=== PATIENT | female | born 2000 | race Caucasian/White ===

== ENCOUNTER 2025-02-21 03:48 | Emergency (ER) | payer BC, SELFPAY ==
[2025-02-21 03:49] VITALS: BP 147/81; PULSE 114; RESP 16; TEMP 37.4; O2SAT 99; BMI 36.6
--- NOTE | 2025-02-21 04:15 | CT_ITS ---
PROCEDURE: BRAIN/HEAD WITHOUT CONTRAST 02/21/2025 REASON FOR EXAM: SHAKING EPISODE, POSS SEIZURE; NUMBNESS RIGHT SIDE TECHNIQUE: Procedure Code: CTBR Modality: CT Procedure: BRAIN/HEAD WITHOUT CONTRAST Coronal and Sagittal reconstruction series were provided. One or more dose reduction techniques were used (e.g., Automated exposure control, adjustment of the mA and/or kV according to patient size, use of iterative reconstruction technique. RADIATION DOSE SUMMARY: CTDI Vol 44.99 mGy DLP :846.73 mGycm COMPARISON: none FINDINGS: The visualized brain parenchyma shows normal appearance. No focal parenchymal abnormalities are demonstrated. Dominique-white matter differentiation is maintained. Normal CT appearance of the posterior fossa structures. No intracerebral or extra-axial hemorrhage. No midline shifts or deformity. Normal size and configuration of the cerebral ventricles. No definite calvarial fractures. The osseous structures in the skull base are unremarkable. Paranasal sinuses are unremarkable. CT/Brain/Head without Contrast IMPRESSION: No intracerebral or extra-axial hemorrhage. No acute cerebrovascular insult. If clinical symptoms persist, further evaluati on with MRI may be considered as clinically warranted. Unremarkable non-enhanced CT study for the brain. Reading Location: [facility]
--- NOTE | 2025-02-21 04:16 | EKG12_ITS ---
Test Reason : DYSRHYTHMIA Blood Pressure : */* mmHG Vent. Rate : 98 BPM Atrial Rate : 98 BPM P-R Int : 166 ms QRS Dur : 90 ms QT Int : 344 ms P-R-T Axes : 74 -5 22 degrees QTcB Int : 439 ms Normal sinus rhythm Minimal voltage criteria for LVH, may be normal variant ( R in aVL ) Borderline ECG Confirmed by AARON HADLEY, DIA ([id number]), design editor SERGE DAVIS ([id number]) on 02/23/2025 6:32:42 AM Referred By: Confirmed By: DIA WALKER MD
--- NOTE | 2025-02-21 04:16 | EDS_ITS ---
HPI History of Present Illness Chief Complaint: Numb/Ting Informant: patient Narrative Narrative: Patient is a 24-year-old female presenting with numbness in both arms and the right leg, along with a recent episode of shaking. - Numbness began last (8 days ago) in the right hand, described as a constant pins and needles sensation. - Spread to the left arm on Sunday and to the right leg last night. - Denies any resolution of numbness; able to use hands without dropping objects and ambulate without difficulty. - Reports an episode of shaking around 0300 (1 hr prior to arrival in ED), described as uncontrollable and lasting approximately 15 minutes; likened to chills but denies feeling sick. Was awake during this. No associated headache or vision problems. No changes in her numbness during this. - Denies chest pain, dyspnea, nausea, emesis, headaches, abdominal issues, visual changes, or eye strain. - No current prescription medications. PFSH PFSH Medical History no medical history Home Medications ?Medication ?Instructions ?Recorded ?Last Taken ?Type NK 02/21/25 Unknown History Allergy/AdvReac Type Severity Reaction Status Date / Time No Known Allergies Allergy Verified 02/21/25 03:51 Social History Smoking Status: Current some day smoker tobacco type: e-cigarettes ROS ROS ED Constitutional Constitutional ED: Denies chills or fever(s) Eyes Eyes: Denies blurry vision, change in vision or diplopia ENT ENT ED: Denies rhinorrhea or sore throat Cardiovascular Cardiovascular: Denies chest pain or palpitations Respiratory/Chest Respiratory/Chest: Denies cough or dyspnea Gastrointestinal Gastrointestinal: Denies abdominal pain, diarrhea, nausea or vomiting Genitourinary Genitourinary ED: Denies dysuria or hematuria Musculoskeletal Musculoskeletal: Denies back pain or neck pain Integumentary Denies abscess or rash Neurologic Neurologic: Reports paresthesias RUE, RLE and LUE and seizure-like activity; Denies headache(s) or weakness Psychiatric Psychiatric: Denies anxiety or suicidal thoughts EXAM Physical Exam Const Vital Signs: 02/21/25 03:49 02/21/25 05:49 02/21/25 06:52 Temperature 99.3 F H 98.1 F Temperature Source Oral Oral Pulse Rate 114 H 102 H 94 Respiratory Rate 16 16 16 Blood Pressure 147/81 H 116/98 H 130/72 H Blood Pressure Mean 103 104 91 Pulse Ox 99 100 94 Oxygen Delivery Method Room Air Room Air Room Air 02/21/25 07:09 Temperature 97.3 F L Temperature Source Pulse Rate 103 H Respiratory Rate 18 Blood Pressure 109/68 Blood Pressure Mean 81 Pulse Ox 99 Oxygen Delivery Method Positive well nourished and well developed General Appearance ED: well developed and NAD HEENT Reports moist mucous membranes normocephalic and atraumatic Eyes PERRL and EOMs intact bilaterally Eyes Narrative: No pathologic nystagmus Neck full ROM and supple Resp normal respiratory effort and clear to auscultation bilaterally Cardio regular rate, regular rhythm and no murmurs GI non-tender and non-distended Auscultation: normoactive bowel sounds Palpation: soft Back/Spine no CVA tenderness General Back: other FROM Extremity normal to inspection General Extremety ED: Negative for edema, pulses abnormal or tenderness General Extremity: Negative for edema or pulses abnormal Neuro oriented x3, CN's II-XII intact bilaterally and no sensory deficits noted Neuro Narrative: No gross sensory deficits, subjective decrease sensation both hands and right lower leg. Normal symmetric reflexes downgoing toes no clonus Normal [id number]-[id number] and [id number] bilaterally Sensorium / Orientation: awake and alert Motor Exam: strength 5/5 throughout Psych mental status grossly normal Skin no rashes or lesions noted and no wounds MDM MDM MDM Narrative Medical decision making narrative: Assessment: The patient is a 24-year-old female with PMH of arthritis in her neck and heartburn presenting for progressive tingling/paresthesias of both upper extremities and right lower extremity that began one week ago, accompanied by a single nocturnal episode of whole-body shaking lasting ~15 minutes. Differential discussed includes metabolic derangements (e.g., abnormal blood sugar or calcium), seizure, panic attack, early multiple sclerosis, and other intracranial pathology. Non-contrast head CT is normal, serum electrolytes are normal, lactic acid is normal (making recent generalized seizure less likely), and urinalysis shows no infection. Multiple sclerosis in the differential but she does not have more than 1 different episode in time right now. Plan: - Discussed results and diagnosis with patient; provided reassurance and return precautions. - Discharged home in stable condition with instructions to follow up with primary care for persistent or recurrent paresthesias. - Arranged to send copy of ED visit record to [facility] for continuity. Diagnostics: - Non-contrast head CT: normal brain parenchyma, no acute intracranial process. - Serum electrolytes: within normal limits. - Serum lactic acid: normal, arguing against tonic-clonic seizure - Urinalysis: no evidence of infection. Reevaluations: - In follow-up after results reviewed, patient remains neurologically intact and comfortable; agrees with discharge plan. Lab Data Attestation: I reviewed the patient's lab results. Labs: Laboratory Results - last 24 hr 02/21/25 02/21/25 02/21/25 04:24 04:27 04:31 WBC 9.8 RBC 4.20 Hgb 12.4 Hct 37.2 MCV 88.6 MCH 29.5 MCHC 33.3 RDW Std Deviation 39.8 RDW Coeff of Klaudia 12.3 Plt Count 305 MPV 9.6 Immature Gran % (Auto) 0.300 Neut % (Auto) 51.6 Lymph % (Auto) 39.2 Morton % (Auto) 7.4 Eos % (Auto) 1.0 Baso % (Auto) 0.5 Absolute Neuts (auto) 5.1 Absolute Lymphs (auto) 3.85 Nucleated RBC % 0 Sodium 140 Potassium 3.7 Chloride 104 Carbon Dioxide 23.5 Anion Gap 13 BUN 12 Creatinine 0.70 Estim Creat Clear Calc 145.08 Est GFR (MDRD) Non-Af 124 BUN/Creatinine Ratio 17.1 Glucose 122 H Lactic Acid 1.3 Calcium 9.3 Magnesium 2.2 Urine Color Yellow Urine Clarity Clear Urine pH 6.0 Ur Specific [place] 1.020 Urine Protein 15 H Urine Glucose (UA) Normal Urine Ketones Negative Urine Occult Blood Negative Urine Nitrite Negative Urine Bilirubin Negative Urine Urobilinogen Normal Ur Leukocyte Esterase Negative Urine RBC 0 SEEN Urine WBC 0 SEEN Ur Squamous Epith Cells 0-5 SEEN Urine Bacteria 0 SEEN Urine Mucus 0 SEEN Radiography Diagnostic Testing: Clinical Impression(s) from Imaging Studies Brain CT 02/21/25 04:15 IMPRESSION: No intracerebral or extra-axial hemorrhage. No acute cerebrovascular insult. If clinical symptoms persist, further evaluation with MRI may be considered as clinically warranted. Unremarkable non-enhanced CT study for the brain. Reading [facility] Chest X-Ray 02/21/25 04:50 IMPRESSION: No evidence for acute abnormality. Reading [facility] Rhythm Strip Rhythm Strip: Sinus Tach Rate: 115 Ectopy: None EKG Initial EKG: Attestation: I personally reviewed and interpreted this EKG as follows: Interpretation: Sinus Rhythm (98) and No Acute Injury Pattern Comments: Nml axis & intervals; nml EKG Discharge Plan Triage Chief Complaint: Numb/Ting ED Provider: Matheus Santamaria Dx/Rx/DC Orders Clinical Impression: Paresthesias, Episode of shaking Instructions: ED Paresthesia Prescriptions: No Action NK Primary Care Provider: Care Physician,No Primary Referrals: [facility] [Outside] - 3-5 Days if not improving Print Language: Tamazight Disposition Disposition: Home, Self Care Discharge Date/Time: 02/21/25 07:10
--- NOTE | 2025-02-21 04:50 | RAD_ITS ---
PROCEDURE: CHEST PA AND LATERAL 02/21/2025 REASON FOR EXAM: POSS FEVER TECHNIQUE: Procedure Code: RADCXR Modality: DX Procedure: CHEST PA AND LATERAL COMPARISON: None. FINDINGS: The lungs are expanded. There is no demonstrated parenchymal abnormality. There is no demonstrated pleural abnormality. Normal heart and pericardium. Normal mediastinum and rené. Normal visualized pulmonary arteries. Normal visualized aortic arch and descending thoracic aorta. Normal visualized thoracic spine. Normal visualized ribs, clavicles, and shoulders. There is no demonstrated abnormality of the visualized soft tissue structures of the upper abdomen. RAD/Chest PA and Lateral IMPRESSION: No evidence for acute abnormality. Reading [facility]
[2025-02-21 04:53] LABS: Mucous, Urine 0 SEEN /hpf (<or=2+); Red Blood Cells-Urine 0 SEEN /hpf (0-5)
[2025-02-21 04:55] LABS: Hematocrit 37.2 % (37-47); Hemoglobin 12.4 g/dL (12.0-15.0); Immature Granulocytes Count 0.030 X10^3/uL (0.0-0.0); Mean Corp Hgb Conc 33.3 g/dL (32-36); Mean Corpuscular Volume 88.6 fL (81-99); Mean Platelet Vol. 9.6 fl (6.2-12.0); NRBC Flagged by Analyzer 0 % (0-5); Platelet Count 305 K/mm3 (150-450); RBC Distribution Width CV 12.3 % (11.6-14.6); RBC Distribution Width SD 39.8 fl (35.1-43.9); Red Blood Count 4.20 M/mm3 (4.2-5.4); White Blood Count 9.8 K/mm3 (4.4-11.0)
[2025-02-21 05:16] LABS: Anion Gap 13 (5-15); BUN 12 mg/dL (4-19); BUN/Creat Ratio 17.1 RATIO (10-20); Calcium,Total 9.3 mg/dL (7.6-11.0); Carbon Dioxide 23.5 mmol/L (21.0-32.0); Chloride 104 mmol/L (98-108); Estimated Creatinine Clearance 145.08 ml/min (50-250); Glucose 122 mg/dL (70-99); Magnesium 2.2 mg/dL (1.5-2.2); Potassium 3.7 mmol/L (3.3-5.1)
[2025-02-21 05:31] LABS: Color, Urine Yellow (Yellow); Glucose, Dipstick Normal (Normal); Ketone-Dipstick Negative (Negative); Leukocyte Esterase-Dipstick Negative /ul (Negative); Nitrite-Dipstick Negative (Negative); Occult Blood-Urine Negative /ul (Negative); Protein-Dipstick 15 mg/dl (Negative); Specific Gravity, Urine 1.020 (1.002-1.030); Urine Bilirubin Dipstick Negative (Negative)
[2025-02-21 05:49] VITALS: BP 116/98; PULSE 102; RESP 16; TEMP 36.7; O2SAT 100
[2025-02-21 06:23] LABS: Squamous Epithelial Cells - UA 0-5 SEEN /hpf (5-10)
[2025-02-21 06:52] VITALS: BP 130/72; PULSE 94; RESP 16; O2SAT 94
[2025-02-21 07:09] VITALS: BP 109/68; PULSE 103; RESP 18; TEMP 36.3; O2SAT 99
== END 2025-02-21 07:10 | disposition home or self-care (01) ==
PROVIDERS: Emergency Provider Emergency Medicine; Visit Provider Emergency Medicine
DX: R20.2 Paresthesia of skin (principal); R20.0 Anesthesia of skin; R25.8 Other abnormal involuntary movements; F17.290 Nicotine dependence, other tobacco product, uncomplicated
CPT/HCPCS: 70450; 71046; 80048; 81001; 83605; 83735; 85025; 93005; 99283; A4216

== ENCOUNTER 2025-02-27 12:55 | Emergency (ER) | payer BC, SELFPAY ==
[2025-02-27 12:56] VITALS: BP 141/89; PULSE 111; RESP 16; TEMP 37.1; O2SAT 98; BMI 36.2
[2025-02-27 14:05] VITALS: BMI 36.2
[2025-02-27 14:55] VITALS: BP 102/64; PULSE 90; RESP 18; O2SAT 98
[2025-02-27 16:09] VITALS: BP 107/66; PULSE 88; RESP 20; TEMP 36.9; O2SAT 97
--- NOTE | 2025-02-27 17:35 | EX.ED.DYSGE1 ---
HPI History of Present Illness Chief Complaint: Neuro S/Sx Narrative Narrative: Pt is a 24-year-old female who is presenting to the ER today with and mother with similar complaints until last week when she was in the ER as well. Patient had a stroke evaluation last week and was discharged. Patient is having numbness and tingling and intermittent pain going from her neck down to both of her hands diffusely. Patient states in the morning she has a hard time using some of the fingers of her left and right hand, but it takes a while to work the pain and the range of motion onto both hands. Patient is also having some numbness and tingling and pain rating from her the right lower back down into her leg. Patient has no aphasia or dysphagia. Patient states she is having intermittent blurry vision, does wear contacts. Has not seen the eye doctor in a few years. Patient has no new acute signs of stroke at this time. Patient is following up with a chiropractor. Patient has not followed up with PCP. Mother at bedside, looking for neurology follow-up. Patient has no saddle seizure, chronic. No recent falls. No other acute complaints. No chest pain or shortness of breath. No mental health history. REVIEW OF SYSTEMS: Unless otherwise stated in this report the patient's positive and negative responses for review of systems for constitutional, eyes, ENT, cardiovascular, respiratory, gastrointestinal, neurological, , musculoskeletal, and integument systems and related systems to the presenting problem are either stated in the history of present illness or were not pertinent or were negative for the symptoms and/or complaints related to the presenting medical problem. Nurse's notes and vital signs reviewed. The patient is not hypoxic. General: Alert, no acute distress, patient resting comfortably Patient is not toxic or lethargic. Skin: warm, intact, no pallor noted Head: Normocephalic, atraumatic Eye: Normal conjunctiva, no double vision blurry vision loss of vision. Visual acuity within normal limits, slightly decreased in the left side. When testing PERRL and vision failed, patient has no deficits to her vision feels Ears, Nose, Throat: Right tympanic membrane clear, left tympanic membrane clear. No drainage or discharge noted. No pre or post auricular tenderness, erythema, or swelling noted. No rhinorrhea or congestion noted. Posterior oropharynx shows no erythema, tonsillar hypertrophy, exudate. the uvula is midline. no trismus or drooling is noted. Neck: No anterior/posterior lymphadenopathy noted. no erythema, no masses, no fluctuance or induration noted. No meningeal signs. Cardio: Regular Rate and Rhythm Respiratory: No acute distress, no rhonchi, wheezing or rales noted. No stridor or retractions are noted. Abdomen: Obese, no pulsatile mass, no flank pain bilateral., soft, nontender, no masses detected. No rebound, guarding, or rigidity noted. Neurological: Appropriate for age; NIH 0. Patient does have decreased pinprick and dull sensation to the right leg compared to left. Patient has equal sensation to both arms. Patient states she is having paresthesias to both arms. Patient is also having lumbar radiculopathy/sciatica pain down her right leg. No signs of saddle anesthesia or cauda equina. Patient states his symptoms have been the similar symptoms over the past 7 to 10 days. Psychiatric: [facility] Medical History (Updated 02/27/25 @ 16:[address] Collin Cloud DO) Numbness Home Medications ?Medication ?Instructions ?Recorded ?Last Taken ?Type methylprednisolone 4 mg tablets in 4 mg PO UD ##1 02/27/25 Unknown Rx a dose pack Allergy/AdvReac Type Severity Reaction Status Date / Time No Known Allergies Allergy Verified 02/21/25 03:51 Social History Smoking Status: Current some day smoker tobacco type: e-cigarettes EXAM Physical Exam Const Vital Signs: 02/27/25 12:56 02/27/25 14:55 02/27/25 16:09 Temperature 98.7 F 98.4 F Temperature Source Oral Pulse Rate 111 H 90 88 Respiratory Rate 16 18 20 H Blood Pressure 141/89 H 102/64 107/66 Blood Pressure Mean 106 76 79 Pulse Ox 98 98 97 Oxygen Delivery Method Room Air MDM MDM MDM Narrative Medical decision making narrative: Lengthy discussion was had at bedside on her symptoms of cervical radiculopathy and paresthesias and lumbar radiculopathy paresthesias. Patient has no acute strokelike signs or symptoms at this time. Patient will be referred to neurology and also to orthopedic surgery. We have also discussed follow-up with [facility] as another option for orthopedics. Patient is not having any new strokelike signs or symptoms today. No acute indication for CT of the brain again or MRI at this time. After speaking to radiology department, I could perform MRI of the brain at approximately 5 to 5:30 PM. Patient and family are aware of the results we take a few hours after the exam is done, the exam takes approxi-1 hour. Patient does not want to have MRI of the brain at this time, we discussed that MRI of the cervical spine and lumbar spine if indicated in the future by PCP may be of more benefit secondary to her symptoms in her arms and legs. Functional decision capacity patient has, she does not want have MRI of the brain. Mother agrees. They are happy with follow-up and referral to orthopedic surgery and neurology. Patient has no strokelike signs or symptoms that are acute today. No questions discharge patient was placed on a Medrol Dosepak prophylactically Lab Data Labs: Laboratory Results - last 24 hr 02/27/25 14:43 POC Glucose 83 Discharge Plan Triage Chief Complaint: Neuro S/Sx ED Provider: Collin Cloud Dx/Rx/DC Orders Clinical Impression: Bilateral cervical radiculopathy, Paresthesias, Acute right-sided back pain with sciatica Instructions: Back Exercises: Lower Back Rotation, Understanding Lumbar Radiculopathy, Back Exercises: Lower Back Stretch, Cervical Radiculopathy, ED Sciatica, ED Paresthesia Prescriptions: New methylprednisolone 4 mg tablets,dose pack 4 mg PO UD Qty: 1 0RF Primary Care Provider: Care Physician,No Primary Referrals: Tommy Mayen MD [Non-Staff -Ordering Privileges, Neurology] Gomez Irizarry MD [Med Staff - Active Staff, Orthopedics] Care Physician,No Primary [Primary Care Provider, Medical] Activity Restrictions/Additional Instructions: I apologize for delays today in the emergency room, thank you for your patience and understanding. Use ice 20 minutes on, 20 minutes off, do not use heat. Do this for 1 to 2 weeks. Perform cervical stretching and lumbar stretching exercises 3-4 times a day for the next 2 weeks. Follow-up with neurology and orthopedic surgery For further evaluation and treatment. We had discussed following up with the [facility], they have walk-in clinics as well where he could be followed up by orthopedics. Print Language: Belarusian Disposition Disposition: Home, Self Care Discharge Date/Time: 02/27/25 16:18
== END 2025-02-27 16:18 | disposition home or self-care (01) ==
PROVIDERS: Emergency Provider Emergency Medicine; Visit Provider Emergency Medicine
DX: M54.12 Radiculopathy, cervical region (principal); M54.41 Lumbago with sciatica, right side; R20.2 Paresthesia of skin; F17.290 Nicotine dependence, other tobacco product, uncomplicated
CPT/HCPCS: 82962; 99284; A4216

== ENCOUNTER 2025-03-20 08:32 | Emergency (ER) | payer BC, SELFPAY ==
[2025-03-20 08:33] VITALS: BP 152/88; PULSE 125; RESP 16; TEMP 37.3; O2SAT 97; BMI 36.6
--- NOTE | 2025-03-20 09:03 | EX.ED.DYSGE1 ---
HPI History of Present Illness Chief Complaint: Back Narrative Narrative: Patient is a 24-year-old female presenting to the emergency department for abdominal cramping, 2 episodes of diarrhea and nausea with 1 episode of nonbloody nonbilious vomiting this morning. Patient has a past medical history of back pain with intermittent weakness and numbness in her lower extremities. States that she has been here to the emergency department twice and was referred up to [facility] to see a neurologist who ordered MRI imaging of her spine and brain. States that she has a bulging disc in her lower lumbar however it was not compressing anything. 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 She had no lesions in the brain. She reports no new back pain, neurologic symptoms, bowel or bladder retention or incontinence, saddle anesthesia. Denies any fevers or headache. States that she is not here for the back pain or neurologic symptoms that have been present for weeks. She reports that she started to have abdominal cramping this morning and had 2 episodes of nonbloody diarrhea. Denies any recent antibiotic use or travel. States that she did take something to have a bowel movement last night and she does not know if she overdid it. She reports she had 1 episode of vomiting nonbloody, nonbilious. Denies any dysuria or hematuria. She is also endorsing intermittent muscle spasms. States this is new for her. [facility] Medical History Heart murmur Numbness Home Medications ?Medication ?Instructions ?Recorded ?Last Taken ?Type methylprednisolone 4 mg tablets in 4 mg PO UD ##1 02/27/25 Unknown Rx a dose pack ondansetron 4 mg disintegrating 4 mg PO Q8H PRN PRN Nausea #10 tabs 03/20/25 Unknown Rx tablet Allergy/AdvReac Type Severity Reaction Status Date / Time No Known Allergies Allergy Verified 03/20/25 08:33 Social History Smoking Status: Current some day smoker tobacco type: e-cigarettes ROS ROS ED ROS Narrative see HPI EXAM Physical Exam Narrative Exam Narrative: Vital signs: Reviewed General: Alert and oriented x 3. No acute distress HEENT: Head is normocephalic and atraumatic, sinuses nontender, pupils equal round and reactive. Nares are patent. Oropharynx and throat exams normal. Neck: Supple without lymphadenopathy nontender Cardiovascular: Regular rate and rhythm, no murmurs. No rubs or gallops. Normal S1 and S2 Respiratory: Clear to auscultation bilaterally. No wheezes, rales, rhonchi Abdominal: Soft and very mildly tender to palpation in the left lower quadrant. Normal bowel sounds. No guarding or rebound. Nonsurgical abdomen. Extremities: No tenderness. No bruising. Normal range of motion. Normal sensation. Skin: No rash or redness. Neurological: Cranial nerves II through XII are grossly intact. Decreased sensation in bilateral lower extremities which patient states is unchanged from baseline. 4/5 strength in bilateral lower extremities. The rest of the physical exam is unremarkable Const Vital Signs: 03/20/25 08:33 03/20/25 10:33 03/20/25 11:24 Temperature 99.2 F H 97.8 F Temperature Source Oral Pulse Rate 125 H 98 86 Respiratory Rate 16 16 16 Blood Pressure 152/88 H 113/77 107/75 Blood Pressure Mean 109 89 85 Pulse Ox 97 100 97 Oxygen Delivery Method Room Air Room Air MDM MDM MDM Narrative Medical decision making narrative: Patient is a 24-year-old female presenting to the emergency for abdominal cramping, nausea, vomiting and diarrhea. Patient was seen and examined. Vitals are stable. She is mildly tachycardic on arrival 125. She is afebrile. The symptoms started this morning. She has no significant abdominal tenderness on exam. I do not think she needs CT imaging of her abdomen at this time. Will treat symptomatically with fluids and Zofran. Will also give Flexeril to help with the muscle spasms. Will obtain blood work to assess her electrolytes given the muscle spasms that she is having. Again she is not here for back pain or neurologic symptoms that are being worked up outpatient. She has no new symptoms related to this. She states that her neurologic exam is baseline for her. CBC with no leukocytosis and a normal hemoglobin. BMP with no significant abnormalities. Urinalysis with 1+ bacteria however no other signs of infection. Urine is negative. Patient was reevaluated after fluids, Flexeril and Zofran. She states that she is feeling much better. No nausea or vomiting. No abdominal cramping or pain. Abdominal exam is still unremarkable. She was able to tolerate p.o. Heart rate improved after fluids to pulse of 86. Patient was given Zofran prescription for home and instructed to take this every 8 hours for nausea and vomiting. Instructed to follow-up with her primary care doctor and told if she has more than 10 days of diarrhea that she may need stool studies but at this time does not need them done. Likely viral in nature. Patient understands and all questions were answered. Patient discharged from the Emergency Department. I do not feel that the patient's evaluation reveals any acute reason for admission at this time. I instructed them to either follow-up with their primary care physician or promptly return to the Emergency Department for reevaluation should symptoms worsen or new symptoms develop. I explained what symptoms would indicate the need to return to the emergency department. Shared decision making was used. The patient voiced understanding of the treatment plan and is agreeable with it. Clinical impression Nausea and vomiting Diarrhea Abdominal cramping History & Record Review Discussion w/independent historian: Patient and Significant other Additional record(s) reviewed:: Prior ED visit Lab Data Attestation: I reviewed the patient's lab results. Labs: Laboratory Results - last 24 hr 03/20/25 03/20/25 03/20/25 09:28 09:28 10:00 WBC Cancelled 10.7 Corrected WBC Cancelled RBC Cancelled 4.11 L Hgb Cancelled 12.3 Hct Cancelled 36.1 L MCV Cancelled 87.8 MCH Cancelled 29.9 MCHC Cancelled 34.1 RDW Std Deviation Cancelled 39.5 RDW Coeff of Klaudia Cancelled 12.2 Plt Count Cancelled 298 MPV Cancelled 9.4 Immature Gran % (Auto) Cancelled 0.300 Neut % (Auto) Cancelled 76.5 H Lymph % (Auto) Cancelled 19.6 [place] % (Auto) Cancelled 3.2 Eos % (Auto) Cancelled 0.1 Baso % (Auto) Cancelled 0.3 Absolute Neuts (auto) Cancelled 8.2 H Absolute Lymphs (auto) Cancelled 2.10 Total Counted Cancelled Neutrophils % (Manual) Cancelled Band Neutrophils % Cancelled Lymphocytes % (Manual) Cancelled Monocytes % (Manual) Cancelled Eosinophils % (Manual) Cancelled Basophils % (Manual) Cancelled Metamyelocytes % Cancelled Myelocytes % Cancelled Promyelocytes % Cancelled Blast Cells % Cancelled Plasma Cell % (Manual) Cancelled Other Cells % Cancelled Nucleated RBC % Cancelled 0 Nucleated RBCs/100 WBC Cancelled Differential Comment Cancelled Diff Path Review Cancelled Hypersegmented Neuts Cancelled Atypical Lymphocytes Cancelled Reactive Lymphocytes Cancelled Smudge Cells Cancelled Toxic Granulation Cancelled Toxic Vacuolation Cancelled Dohle Bodies Cancelled Cassie Rods Cancelled Platelet Estimate Cancelled Plt Morphology Comment Cancelled RBC Morphology Cancelled Cancelled Polychromasia Cancelled Hypochromasia Cancelled Basophilic Stippling Cancelled Anisocytosis Cancelled Microcytosis Cancelled Macrocytosis Cancelled Spherocytes Cancelled Sickle Cells Cancelled Target Cells Cancelled Tear Drop Cells Cancelled Ovalocytes Cancelled Stomatocytes Cancelled [place] Bodies Cancelled [place] Cells Cancelled Bite Cells Cancelled Crenated Cell Cancelled Acanthocytes (Spur) Cancelled Rouleaux Cancelled Schistocytes Cancelled Sodium Cancelled 140 Potassium Cancelled 3.8 Chloride Cancelled 106 Carbon Dioxide Cancelled 23.8 Anion Gap Cancelled 10 BUN Cancelled 7 Creatinine Cancelled 0.79 Estim Creat Clear Calc Cancelled 128.48 Est GFR (MDRD) Non-Af Cancelled 108 BUN/Creatinine Ratio Cancelled 8.8 L Glucose Cancelled 122 H Calcium Cancelled 8.9 Magnesium Cancelled 2.2 Total Bilirubin Cancelled 0.33 AST Cancelled 23 ALT Cancelled 31 Alkaline Phosphatase Cancelled 52 Total Protein Cancelled 6.9 Albumin Cancelled 4.2 Globulin Cancelled 2.7 Albumin/Globulin Ratio Cancelled 1.6 Urine Color Yellow Urine Clarity Clear Urine pH 7.0 Ur Specific [place] 1.005 Urine Protein Negative Urine Glucose (UA) Normal Urine Ketones Negative Urine Occult Blood Negative Urine Nitrite Negative Urine Bilirubin Negative Urine Urobilinogen Normal Ur Leukocyte Esterase 25 H Urine RBC 0 SEEN Urine WBC 0-5 SEEN Ur Squamous Epith Cells 0-5 SEEN Urine Bacteria 1+ Urine Mucus 0 SEEN Urine Test Negative Discharge Plan Triage Chief Complaint: Back ED Provider: Jasmina Arroyo Dx/Rx/DC Orders Clinical Impression: Nausea vomiting and diarrhea Instructions: ED Diarrhea, Unknown Cause, ED Viral Syndrome (Adult) Prescriptions: New ondansetron 4 mg tablet,disintegrating 4 mg PO Q8H PRN PRN (Reason: Nausea) Qty: 10 0RF No Action methylprednisolone 4 mg tablets,dose pack 4 mg PO UD Qty: 1 0RF Primary Care Provider: Care Physician,No Primary Referrals: Eunice Murillo MD [Med Staff - [facility], Internal Medicine] - As soon as possible Care Physician,No Primary [Primary Care Provider, Medical] Activity Restrictions/Additional Instructions: Take the Zofran every 8 hours as needed for nausea and vomiting. Make sure you are drinking a lot of fluids. If you have diarrhea for more than 10 days you need to follow-up with a primary care doctor for possible stool studies. Your evaluation in the Emergency Department did not reveal any acute reason for admission. However, I want to emphasize that you may be early in the course of a disease process or illness even if it is not present. For this reason you should follow-up within 24 hours for reevaluation with either your primary care physician or if necessary back here in the Emergency Department. You should return to the Emergency Department immediately if your symptoms worsen or new symptoms develop. Print Language: Polish Disposition Disposition: Home, Self Care Discharge Date/Time: 03/20/25 11:28
[2025-03-20] MEDS: 0.9% Normal Saline (1000mL) 1,000 ML 999 ML IV (09:29)
[2025-03-20 10:06] LABS: Mucous, Urine 0 SEEN /hpf (<or=2+); Red Blood Cells-Urine 0 SEEN /hpf (0-5)
[2025-03-20 10:11] LABS: Hematocrit 36.1 % (37-47); Hemoglobin 12.3 g/dL (12.0-15.0); Immature Granulocytes Count 0.030 X10^3/uL (0.0-0.0); Mean Corp Hgb Conc 34.1 g/dL (32-36); Mean Corpuscular Volume 87.8 fL (81-99); Mean Platelet Vol. 9.4 fl (6.2-12.0); NRBC Flagged by Analyzer 0 % (0-5); Platelet Count 298 K/mm3 (150-450); RBC Distribution Width CV 12.2 % (11.6-14.6); RBC Distribution Width SD 39.5 fl (35.1-43.9); Red Blood Count 4.11 M/mm3 (4.2-5.4); White Blood Count 10.7 K/mm3 (4.4-11.0)
[2025-03-20 10:12] LABS: Color, Urine Yellow (Yellow); Glucose, Dipstick Normal (Normal); Ketone-Dipstick Negative (Negative); Leukocyte Esterase-Dipstick 25 /ul (Negative); Nitrite-Dipstick Negative (Negative); Occult Blood-Urine Negative /ul (Negative); Protein-Dipstick Negative (Negative); Specific Gravity, Urine 1.005 (1.002-1.030); Urine Bilirubin Dipstick Negative (Negative)
[2025-03-20 10:19] LABS: Internal QC Validated? YES +Cl - CLEAR BKGD; Pregnancy, Urine Negative Negative; Record Kit Lot#,Urine Preg 980607; Squamous Epithelial Cells - UA 0-5 SEEN /hpf (5-10)
[2025-03-20 10:33] VITALS: BP 113/77; PULSE 98; RESP 16; O2SAT 100
[2025-03-20 10:45] LABS: AST(SGOT) 23 U/L (<=31); Alanine Aminotransfer ALT/SGPT 31 U/L (<=34); Albumin, Serum 4.2 g/dL (3.5-5.0); Alkaline Phosphatase 52 U/L (35-104); Anion Gap 10 (5-15); BUN 7 mg/dL (4-19); BUN/Creat Ratio 8.8 RATIO (10-20); Calcium,Total 8.9 mg/dL (7.6-11.0); Carbon Dioxide 23.8 mmol/L (21.0-32.0); Chloride 106 mmol/L (98-108); Estimated Creatinine Clearance 128.48 ml/min (50-250); Globulin 2.7 g/dL (2.2-4.2); Glucose 122 mg/dL (70-99); Magnesium 2.2 mg/dL (1.5-2.2); Potassium 3.8 mmol/L (3.3-5.1)
[2025-03-20 11:24] VITALS: BP 107/75; PULSE 86; RESP 16; TEMP 36.6; O2SAT 97
== END 2025-03-20 11:28 | disposition home or self-care (01) ==
PROVIDERS: Emergency Provider Student in an Organized Health Care Education/Training Program; Visit Provider Student in an Organized Health Care Education/Training Program
DX: R11.2 Nausea with vomiting, unspecified (principal); R19.7 Diarrhea, unspecified; R10.9 Unspecified abdominal pain; M50.20 Other cervical disc displacement, unspecified cervical region; M51.369 Other intervertebral disc degeneration, lumbar region without mention of lumbar back pain or lower extremity pain
CPT/HCPCS: 80053; 81001; 81025; 83735; 85025; 96361; 96374; 99282; A4216; J2405

== ENCOUNTER 2025-04-15 07:02 | Emergency (ER) | payer BC, SELFPAY ==
[2025-04-15 07:03] VITALS: BP 145/90; PULSE 104; RESP 16; TEMP 35.7; O2SAT 100
[2025-04-15 07:08] VITALS: BMI 34.9
--- NOTE | 2025-04-15 07:12 | RAD_ITS ---
PROCEDURE: CHEST 1 VIEW (PORTABLE) 04/15/2025 REASON FOR EXAM: CHEST PAIN TECHNIQUE: Frontal view of the chest. COMPARISON: Chest x-ray of 02/21/2025. RAD/Chest 1 View (Portable) IMPRESSION: Lungs appear clear. No pleural effusion or pneumothorax is seen. The cardiomediastinal silhouette is within the normal range, and unchanged. No acute osseous change is identified. Negative examination. Reading Location: [id number]
--- NOTE | 2025-04-15 07:12 | EKG12_ITS ---
Test Reason : cp Blood Pressure : */* mmHG Vent. Rate : 85 BPM Atrial Rate : 85 BPM P-R Int : 160 ms QRS Dur : 88 ms QT Int : 368 ms P-R-T Axes : 44 -16 17 degrees QTcB Int : 437 ms Normal sinus rhythm Minimal voltage criteria for LVH, may be normal variant ( R in aVL ) Borderline ECG Confirmed by NEO MEADE ([id number]), movie editor MORIAH MILLER ([id number]) on 04/20/2025 6:31:55 AM Referred By: Trevor Confirmed By: NEO MEADE
--- NOTE | 2025-04-15 07:14 | EDS_ITS ---
HPI History of Present Illness Chief Complaint: Chest Pain Detail of Chief Complaint: Muscle spasms and chest pain Informant: patient Narrative Narrative: Patient presents to the emergency department complaint of muscle spasms and chest discomfort. She states she woke up around 1:30 AM with some just generalized muscle spasms in her legs. She has had episodes like this for months and is scheduled to have neck surgery for herniated disc at [facility] in 3 days. Patient states that she took baclofen and it seemed to help the spasms but still having some tightness in her legs. Also then developed some sharp pains in her left chest continue. She states that her heart just does not quite feel right like maybe skipping beats. No history of anxiety or panic attacks. No recent travel or surgery. No prior history of PE or DVT. She is not on hormone therapy. [facility] Medical History Heart murmur Numbness Home Medications ?Medication ?Instructions ?Recorded ?Last Taken ?Type baclofen 10 mg tablet 20 mg PO TID 04/15/25 History Allergy/AdvReac Type Severity Reaction Status Date / Time No Known Allergies Allergy Verified 04/15/25 07:04 Family History no significant family his Surgical History unable to obtain Social History Smoking Status: Current some day smoker tobacco type: e-cigarettes ROS ROS ED Review of Systems ROS Unobtainable: other Constitutional Constitutional ED: Reports lethargy; Denies chills, fever(s), sweats or weight loss Eyes Eyes: Denies blurry vision, change in vision or diplopia ENT ENT ED: Denies rhinorrhea or sore throat Cardiovascular Cardiovascular: Reports chest pain and palpitations; Denies orthopnea or racing heartbeat Respiratory/Chest Respiratory/Chest: Reports dyspnea and dyspnea on exertion; Denies cough, orthopnea or sputum Gastrointestinal Gastrointestinal: Denies abdominal pain, diarrhea, nausea or vomiting Genitourinary Genitourinary ED: Denies dysuria, hematuria or urinary frequency Musculoskeletal Musculoskeletal: Denies arthralgias, back pain, myalgias or neck pain Integumentary Denies abscess, Abrasions or rash Neurologic Neurologic: Denies headache(s) or weakness Psychiatric Psychiatric: Denies anxiety, depression or suicidal thoughts Endocrine Endocrinology: Denies polydipsia, polyphagia or polyuria Hematologic/Lymphatic Hematologic/Lymphatic: Denies easy bleeding, easy bruising or lymphadenopathy Allergic/Immunologic Allergic/Immunologic ED: Denies mouth swelling, tongue swelling or urticaria EXAM Physical Exam Const Vital Signs: 04/15/25 07:03 04/15/25 07:08 04/15/25 08:02 Temperature 96.3 F L Temperature Source Temporal Pulse Rate 104 H 89 Respiratory Rate 16 16 Respiratory Effort Normal Blood Pressure 145/90 H 105/74 Blood Pressure Mean 108 84 Pulse Ox 100 98 Oxygen Delivery Method Room Air Room Air 04/15/25 09:02 Temperature Temperature Source Pulse Rate 84 Respiratory Rate Respiratory Effort Blood Pressure 109/82 H Blood Pressure Mean 91 Pulse Ox 97 Oxygen Delivery Method Room Air Positive well nourished and well developed General Appearance ED: well developed and NAD HEENT Reports TM's clear and moist mucous membranes normocephalic and atraumatic; Negative for trauma or tenderness Tympanic Membrane ED: Yes TM's clear Eyes PERRL and EOMs intact bilaterally General Eye ED: Negative for pale conjunctiva or scleral icterus Neck no lymphadenopathy, supple and no JVD General: Negative for tenderness Chest Wall inspection of chest normal and palpation of chest normal Chest: Negative for tenderness Resp normal respiratory effort and clear to auscultation bilaterally Effort and Inspection: Negative for respiratory distress or pain with movement Auscultation: Negative for rhonchi, wheezes or diminished lung sounds Cardio regular rate, regular rhythm, S1 normal heart sound, S2 normal heart sound and no murmurs Peripheral Pulses: pulses 2+ throughout GI normal to inspection, nondistended, normoactive bowel sounds, soft to palpation, non-tender, non-distended and no masses Back/Spine no CVA tenderness and no thoracic nor lumbar tenderness Extremity normal to inspection General Extremety ED: Negative for edema General Extremity: Negative for edema Neuro oriented x3, CN's II-XII intact bilaterally, no sensory deficits noted and gait normal Sensorium / Orientation: awake, alert, oriented to person, oriented to place and oriented to time Motor Exam: strength 5/5 throughout and strength abnormal Psych mental status grossly normal Skin no rashes or lesions noted and no wounds MDM MDM MDM Narrative Medical decision making narrative: Patient presents with complaint of some chest discomfort and some muscle spasms. Muscle spasms have been chronic and she is scheduled to have surgery for herniated disc in her neck. She clinically looks well. No significant PE risk factors. She did present slightly tachycardic which may be related to pain. In the differential would be chest wall pain or pleurisy, anxiety, pericarditis or myocarditis which I feel are less likely or even pulmonary embolism which I feel is low probability. EKG obtained arrival shows sinus rhythm with rate of 85 bpm with no acute ST segment changes. CBC with differential showed a white count of 9.8 with hemoglobin 12.3 and platelet count of 309. Chemistries unremarkable. Troponin is less than 6. D-dimer was normal at 0.33. 1 view chest x-ray was unremarkable. While in the department she was medicated with a milligram of Ativan and felt markedly improved. At this point she will be discharged to home. She will keep her appointment for her surgery and 2 days. Lab Data Attestation: I reviewed the patient's lab results. Labs: Laboratory Results - last 24 hr 04/15/25 07:32 WBC 9.8 RBC 4.16 L Hgb 12.3 Hct 36.8 L MCV 88.5 MCH 29.6 MCHC 33.4 RDW Std Deviation 38.9 RDW Coeff of Klaudia 12.1 Plt Count 309 MPV 9.6 Immature Gran % (Auto) 0.300 Neut % (Auto) 67.8 Lymph % (Auto) 26.3 [place] % (Auto) 4.9 Eos % (Auto) 0.3 Baso % (Auto) 0.4 Absolute Neuts (auto) 6.6 Absolute Lymphs (auto) 2.57 Nucleated RBC % 0 D-Dimer Quant (PE/DVT) 0.33 Sodium 140 Potassium 3.6 Chloride 104 Carbon Dioxide 22.5 Anion Gap 13 BUN 7 Creatinine 0.71 Estim Creat Clear Calc 139.34 Est GFR (MDRD) Non-Af 121 BUN/Creatinine Ratio 9.3 L Glucose 126 H Calcium 9.0 Troponin T High Sens < 6 Radiography Diagnostic Testing: Clinical Impression(s) from Imaging Studies Chest X-Ray 04/15/25 07:12 IMPRESSION: Lungs appear clear. No pleural effusion or pneumothorax is seen. The cardiomediastinal silhouette is within the normal range, and unchanged. No acute osseous change is identified. Negative examination. Reading Location: [address] 1 view chest x-ray obtained interpreted by myself as no evidence of infiltrate or pneumothorax or acute disease process. Radiology in agreement. EKG Initial EKG: Attestation: I personally reviewed and interpreted this EKG as follows: Comments: Sinus rhythm with ventricular rate of 85 bpm with no acute ST segment change Discharge Plan Triage Chief Complaint: Chest Pain Other Complaint: Back ED Provider: Genna Abebe Dx/Rx/DC Orders Clinical Impression: Chest pain, Muscle spasm Instructions: ED Chest Pain, Uncertain Cause, ED Muscle Spasm Prescriptions: No Action baclofen 10 mg tablet 20 mg PO TID Primary Care Provider: Care Physician,No Primary Referrals: Care Physician,No Primary [Primary Care Provider, Medical] Activity Restrictions/Additional Instructions: Keep your appointment for surgery in 2 days Print Language: Portuguese Disposition Disposition: Home, Self Care
--- OUTSIDE RECORDS SUMMARY | 2025-04-15 07:34 | XMS RPT_ITS | CCD ---
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 Matheus Santamaria MD Emergency Department Phys ician Care Physician, No Primary Primary Care Physicia n Unavailable SONIA HADLEY, Bryan PETERSON Unavailable [phone] KRISTEN PORTILLO MD Unavailable ANNIE PORTILLO MD Unavailable EDWAR NEWMAN MD Unavailable [phone] ARLETTE MCGRAW, BAYLEE Unavailable Unavailable CARI RESENDEZ Unavailable Unavailable Cecy RESENDEZ MD Unavailable Bethanie Vyas Unavailable Unavailable Unavailable Unavailable Bri CUTLER-BRIANNA, Stephany Unavailable Unavailab mikal Scott MD, Louis Peterson Unavailable Dr. Matheus Santamaria MD Attending Physician Pay Dr. Collin ESTEBAN Attending Physician [phone] Dr. Collin Cloud DO Emergency Department Physici an Nieves Prescott MD Unavailable Matheus Santamaria Attending Unavailable Care Physician, No Primary Primary Care Unava ilable Collin Cloud Attending Unavailable Care Physician, No Primary Primary Care Unava ilable Jasmina Arroyo Attending Unavailable Care Physician, No Primary Primary Care Unava ilable PROVIDER, UNKNOWN Attending Unavailable PROVIDER, UNKNOWN Admitting Unavailable JAVY CAR Referring Unavailable PROVIDER, UNKNOWN Attending Unavailable FLORIDALMA VILLELA Referring Unavailable PROVIDER, UNKNOWN Admitting Unavailable GOOD MICHEL Referring Unavailable PROVIDER, UNKNOWN Attending Unavailable PROVIDER, UNKNOWN Admitting Unavailable FLORIDALMA VILLELA Attending Unavailable PROVIDER, UNKNOWN Admitting Unavailable JAVY CAR Referring Unavailable PROVIDER, UNKNOWN Attending Unavailable PROVIDER, UNKNOWN Admitting Unavailable JAVY CAR Referring Unavailable PROVIDER, UNKNOWN Admitting Unavailable PROVIDER, UNKNOWN Attending Unavailable PROVIDER, UNKNOWN Attending Unavailable PROVIDER, UNKNOWN Admitting Unavailable PROVIDER, UNKNOWN Admitting Unavailable PALLAVI, JAVY Attending Unavailable GOOD MICHEL Attending Unavailable PROVIDER, UNKNOWN Admitting Unavailable Medications Current Medications Medication Drug Class(es) Dates Sig (Normalized) Sig (Original) baclofen 10 mg oral tablet (2 sources) gamma-Aminobutyric Acid-ergic Agonist Start: 03-04-2025 take 1 tablet by mouth every eight hours as needed for pain baclofen 10 mg tablet Take 1 tablet by mouth every eight hours as needed for pain active Stephany Gregory APRN-[facility] methylPREDNISolone 4 mg oral tablet (15 sources) Corticosteroid Start: 02-27-2025 Comment on above: 4 days worth started in ER 02-27-25 Completed/Discontinued Medications Medication Drug Class(es) Dates Sig (Normalized) Sig (Original) [id number] 200 actuat albuterol 0.09 mg/actuat metered dose inhaler (15 sources) beta2-Adrenergic Agonist Start: 09-19-2012 End: 05-20-2015 take 2 puff(s) by inhalation every four hours as needed PROAIR HFA, 108 (90 Base)MCG/ACT (Inhalation Aerosol Solution) ; 2 (two) Puff(s) every four hours as needed for 30 days Quantity: 1 {MDI} Refills: 3 Ordered: 20-May-2015 Start: 19-Sep-2012 End: 20-May-2015 Status: Inactive Comments: Medication taken as needed. Mast Comment on above: Medication taken as needed. Mast amoxicillin 500 mg oral capsule (20 sources) Penicillin-class Antibacterial Start: 05-20-2015 End: 05-30-2015 take 1 tablet by mouth three times daily AMOXICILLIN, 500MG (Oral Capsule) ; 1 (one) Tablet three times daily for 10 days Quantity: 30 {Capsule} Refills: 0 Ordered: 09-Apr-2017 MD ANNIE PORTILLO Start: 20-May-2015 End: 30-May-2015 Status: Inactive Start: 02-05-2013 End: 02-06-2013 AMOXICILLIN, 500MG (Oral Tab let) ; 4 tablet(s) 1 hour before appointment for 1 days Quantity: 4 {Tablet} Refills: 0 Ordered: 28-Jul-2013 MD Bryan SCOTT Start: 05-Feb-2013 End: 06-Feb-2013 Status: Inactive Start: 04-16-2012 End: 04-26-2012 AMOXICILLIN, 250MG/5ML (Oral Suspension Reconstituted) ; 1 (one) Teaspoon(s) three times daily for 10 days Quantity: 1 {bottle(s)} Refills: 0 Ordered: 19-Sep-2012 MD Cecy RESENDEZ Start: 16-Apr-2012 End: 26-Apr-2012 Status: Inactive Start: 05-08-2011 End: 05-18-2011 AMOXICILLIN, 250MG/5ML (Oral Suspension Reconstituted) ; 1 (one) Teaspoon(s) three times daily for 10 days Quantity: 1 {bottle(s)} Refills: 0 Ordered: 16-Apr-2012 MD Cecy RESENDEZ Start: 08-May-2011 End: 18-May-2011 Status: Inactive azithromycin 40 mg/ml oral suspension (15 sources) Macrolide Antimicrobial Start: 05-18-2010 End: 05-08-2011 AZITHROMYCIN, 200MG/5ML (Oral Suspension Reconstituted) ; 2 (two) For Suspension daily for 0 days Quantity: 1 {bottle(s)} Refills: 0 Ordered: 08-May-2011 Start: 18-May-2010 End: 08-May-2011 Status: Inactive Comments: 2 tsp day one then 1 tsp daily for 4 days Comment on above: 2 tsp day one then 1 tsp daily for 4 days Problems Active Problems Problem Classification Problem Date Documented Date Episodic/Chronic Administrative/social admission (20 sources) Child in care; Translations: [Encounter for health supervision and care of other healthy infant and child] 04-10-2017 Episodic Anxiety disorders (3 sources) Fear of falling; 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] Onset: 03-04-2025 03-04-2025 Chronic Diabetes mellitus without complication (20 sources) Increased glucose level; Translations: [Other abnormal glucose] 03-03-2025 Episodic Heart valve disorders (20 sources) Heart murmur; Translations: [Cardiac murmur, unspecified] 02-05-2013 Episodic Other circulatory disease (1 source) Hemorrhage, not elsewhere classified; Translations: [Hemorrhage, not elsewhere classified] Onset: 03-26-2025 Episodic Other connective tissue disease (2 sources) Paraparesis; Translations: [Other symptoms and signs involving the musculoskeletal system] Onset: 03-12-2025 03-19-2025 Episodic Other lower respiratory disease (15 sources) Dyspnea; Translations: [Dyspnea, unspecified] 09-19-2012 Episodic Other nervous system disorders (1 source) Disease of spinal cord, unspecified; Translations: [Disease of spinal cord, unspecified] Onset: 03-23-2025 Chronic Other nervous system disorders (2 sources) Tremor; Translations: [Tremor, unspecified] 02-21-2025 Episodic Other nervous system disorders (20 sources) Paresthesia; Translations: [Paresthesia of skin] 02-21-2025 Episodic Other nervous system disorders (2 sources) Abnormal gait; Translations: [Unspecified abnormalities of gait and mobility] Onset: 03-12-2025 03-19-2025 Episodic Other nervous system disorders (2 sources) Abnormal reflex; Translations: [Abnormal reflex] Onset: 03-12-2025 03-19-2025 Episodic Other nervous system disorders (2 sources) Ataxia; Translations: [Ataxia, unspecified] Onset: 03-12-2025 03-19-2025 Episodic Other nervous system disorders (1 source) Paresthesia of skin; Translations: [Paresthesia of skin] Onset: 03-05-2025 Episodic Other upper respiratory infections (20 sources) Acute upper respiratory infections of unspecified site 04-16-2012 Episodic Otitis media and related conditions (20 sources) Acute left otitis media; Translations: [Otitis media, unspecified, left ear] 05-20-2015 Episodic Spondylosis; intervertebral disc disorders; other back problems (6 sources) Lumbosacral radiculopathy; Translations: [Intervertebral disc disorders with radiculopathy, lumbosacral region] Onset: 03-04-2025 03-04-2025 Episodic Past or Other Problems Problem Classification Problem Date Documented Da te Episodic/Chronic Headache; including migraine (15 sources) Headache; including migraine 04-16-2012 Otitis media and related conditions (20 sources) Otitis media and related conditions 05-08-2011 Unclassified (15 sources) Physical examination - The patient is here for a 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 Note for Physical examination: Pt immunizations are not up to date. 04-10-2017 Unclassified (15 sources) Ear pain - It is the left ear. 05-20-2015 Unclassified (15 sources) Shortness of breath.. - Symptoms include dyspnea and chest tightness. Onset was 1 hour(s) ago. Onset followed none (was sitting at desk at school). Note for Shortness of breath: . 09-19-2012 Unclassified (15 sources) cough - The onset of the cough has been acute and has been occurring for 3 days. The symptoms have been associated with fever and sore throat. 05-08-2011 Unclassified (11 sources) recheck - ear (otitis media on 05-18-10.). 06-15-2010 Unclassified (10 sources) Rash - The rash has been occurring for 3 days. The course has been increasing. The rash is characterized as raised above the skin. The rash was first seen on the abdomen. It spread to the neck. Note for Rash: IS ITCHY 05-18-2010 Unclassified (10 sources) [ADDITIONAL REASON] Ear Discharge - The history today is reported by the patient's mother. Symptoms include ear discharge. Symptoms are located in the left ear. 05-18-2010 Unclassified (11 sources) Follow-up after ER visit - The diagnosis of paresthesias. The patient reports feeling feels well with minor complaints (continues with numbness and tingling in arms and legs.). The ER visit was at [facility]. Date:02-21-25 and 02-27-25. New medicaitons include: methylprednisolone. Note for Follow-up after ER visit: pt is scheduled to see ortho and neuro doctors later in February. 03-03-2025 Unclassified (11 sources) [ADDITIONAL REASON] Transition into care - The patient is transitioning into care from an emergency room and a summary of care was reviewed. 03-03-2025 Unclassified (4 sources) [ADDITIONAL REASON] recheck - ear (otitis media on 05-18-10.). 06-15-2010 Unclassified (9 sources) !Patient notification of lab results - Dr. Scott. The test(s) that you had done were/was blood work. The results of your testing were normal . You should call our office if you have any questions. 03-06-2025 Unclassified (3 sources) Transition into care - The patient is transitioning into care from an emergency room and a summary of care was reviewed. 03-03-2025 Unclassified (3 sources) [ADDITIONAL REASON] Follow-up after ER visit - The diagnosis of paresthesias. The patient reports feeling feels well with minor complaints (continues with numbness and tingling in arms and legs.). The ER visit was at [facility]. Date:02-21-25 and 02-27-25. New medicaitons include: methylprednisolone. Note for Follow-up after ER visit: pt is scheduled to see ortho and neuro doctors later in February. 03-03-2025 Unclassified (5 sources) Ear Discharge - The history today is reported by the patient's mother. Symptoms include ear discharge. Symptoms are located in the left ear. 05-18-2010 Unclassified (5 sources) [ADDITIONAL REASON] Rash - The rash has been occurring for 3 days. The course has been increasing. The rash is characterized as raised above the skin. The rash was first seen on the abdomen. It spread to the neck. Note for Rash: IS ITCHY 05-18-2010 Results Test Name Value Interpretation Reference Range Facility Telephone Encounteron 2024 Maintenance Painter Apprentice Geo[employer] Interface Message Text [facility] Radiology got back to RN. Radiology does not do spine MRIs with contrast only. If doing contrast always also do without contrast. Order will have to stay with and without contrast. RN notified [employer]. They will submit current order for auth to insurance. Might deny and then provider may have to do peer to peer. RN asked Dr Hernandez's guidance secretary to request MRI L spine images through [facility] from [facility] [place]. RN called pt. Pt answered. Pt identified by name and date of . RN explained what is going on with MRI and authorization. Pt to plan to come to MRI as scheduled unless hears otherwise from our office. Pt asked about signing up for [employer]. RN sent activation code to phone number requested. Pt received code and will work on signing up. Pt agreeable. No further questions. Pt verbalized understanding. Normal [facility] Telephone Encounteron 2024 Maintenance Painter Apprentice Authentication Interface Message Text Spoke with Dr Hernandez. He does not need the w/o contrast portion of the MRI L spine repeated, just a MRI L spine w/ contrast. RN notified [employer]. [employer] asked for new order just MRI L spine w/contrast. Order is an option, but when selected get warning message to call radiology as is a radiology only order. RN called [facility] radiology. Patient was identified by name and date of . Spoke with Dr Penaloza. Situation explained. 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 RN notified [employer] and Dr Hernandez. Normal [facility] Maintenance Painter Apprentice Authentication Interface Message Text RN called pt. Pt answered. Pt identified by name and date of . Pt did have an MRI of the L spine w/o contrast in the last month at [facility] [place] ordered by Dr Stephany Gregory. Pt thinks she gave disc with this image to Dr Michel at [facility] on 03/17/25. Current MRI L spine ordered by Dr Hernandez is with contrast. RN advised will talk to Dr Hernandez to determine if contrast scan is still needed. Pt states she will pay out of pocket for contrast MRI L spine if necessary. Currently scheduled at [facility] for MRI. RN advised will clarify necessity with Dr Hernandez and follow up with pt. If MRI L spine with contrast is needed, may want to consider using [facility] if appropriate for lower cost to pt. MRI T spine w/contrast is approved. No further questions. Pt verbalized understanding. ----- Message from Hollie sent at 03/30/2025 10:23 AM EST ----- ----- Message ----- From: Davey Bautista Sent: 03/30/2025 10:19 AM EST To: Sebastian Hernandez MD; Hollie Harleycarlton Fermin patient is scheduled for a L-spine mri [id number] she is approved for one a [facility] under Dr Pearce if she has had it done can report be obtained or she can call her insurance company and have the auth changed to be done at [facility] if it's not done yet AUTH # [id number] Normal [facility] Addendum Noteon 03-27-2025 Maintenance Painter Apprentice Authentication Interface Message Text Addended by: MAYELA WHITE on: 03/27/2025 08:41 AM Modules accepted: Orders Normal [facility] CSF CELL COUNTon 03-26-2025 Clarity (U) Clear Normal [facility] Comment on above: Order Comment: TNC ( Total Nucleated Count) consists of WBC and lining cells. Performed By: #### ALMA CESAR ####[facility] PATHOLOGY [id number] [place], [place], Color (U) Colorless Normal [facility] Comment on above: Order Comment: TNC ( Total Nucleated Count) consists of WBC and lining cells. Performed By: #### ALMA CESAR ####S PATHOLOGY [id number] [place], [place], RBC (Bld) [#/Vol] 0.44902 10*6/uL High 0-5 Th e [facility] Comment on above: Order Comment: TNC ( Total Nucleated Count) consists of WBC and lining cells. Performed By: #### ALMA CESAR ####[facility] PATHOLOGY [id number] [place], [place], SUPERNATANT Colorless Normal [facility] Comment on above: Order Comment: TNC ( Total Nucleated Count) consists of WBC and lining cells. Performed By: #### ALMA CESAR ####S PATHOLOGY [id number] [place], [place], TUBE # 4 Normal [facility] Comment on above: Order Comment: TNC ( Total Nucleated Count) consists of WBC and lining cells. Performed By: #### ALMA CESAR ####S PATHOLOGY [id number] [place], [place], WBC (Bld) [#/Vol] 10*3/uL Normal 0-5 [facility] Comment on above: Order Comment: TNC ( Total Nucleated Count) consists of WBC and lining cells. Performed By: #### ALMA CESAR ####S PATHOLOGY [id number] [place], [place], CSF DIFFERENTIALon 11-06-202 5 CELLS COUNTED TOTAL # IN BLOOD 22 Normal The [facility] Comment on above: Performed By: #### C SFCOMD TALIIFFCSF ####S PATHOLOGY [id number] [place], [place], FLUID, LYMPHOCYTES 86 % Normal The [facility] Comment on above: Performed By: #### C SFCOUNTMDIFFCSF ####[facility] [id number] [place], [place], FLUID, NEUTROPHILS 14 % Normal The [facility] Comment on above: Performed By: #### C SFCOUNTMDIFFCSF ####S PATHOLOGY [id number] [place], [place], CULTURE, CSF/GRAM STAINon CULTURE, CSF/GRAM STAIN C CSF: No Growth GRAM STAIN: This Gram Stain was performed on a Cytocentrifuged specimen. No Polymorphonuclear Leukocytes seen No Squamous Epithelial Cells seen No organisms seen Normal The [facility] Comment on above: Performed By: #### C CSF ####[facility] [id number] [place], [place] GLUCOSE, CSFon 03-26-2025 GLU CSF 67 mg/dL Normal 40-70 The [facility] Comment on above: Performed By: #### O CONNOR, IGG INDEX #### [facility] Path[facility] [address] [facility] [place], [place] IGG INDEX AND SYNTHESIS RATE on 03-26-2025 Albumin [Mass/Vol] 4.1 g/dL Normal 3.6-5.1 The [facility] Comment on above: Order Comment: Dominick arthur Agency Address Site ID: AMD Name: [facility] Address: [address] [place] [address] [place], [place] Director: Carlo Duke M.D.,PhD Performed By: #### O LIGO, IGG INDEX #### [facility] [address] [facility] [place], [place] CSF ALBUMIN 7.8 mg/dL Low 8.0-42.0 The [facility] Comment on above: Order Comment: Dominick arthur Agency Address Site ID: AMD Name: [facility] Address: [address] [place] [address] Dr [place], [place] Director: Carlo Duke M.D.,PhD Performed By: #### O LIGO, IGG INDEX #### [facility] [address] [facility] [place], [place] CSF IGG 1.2 mg/dL Normal 0.8-7.7 [facility] Comment on above: Order Comment: [facility] Site ID: [facility] Name: Just around [facility] Address: [address] [place] [address] Dr Ste[place], [place] Director: Carlo Duke M.D.,PhD Performed By: #### O JOYCELYNO, IGG INDEX #### [facility] Pathology [address] [place] [address] [place], [place] CSF IGG INDEX 0.70 High <0.70 The [facility] Comment on above: Order Comment: Dominick [facility] Site ID: AMD Name: [facility] around [facility] Address: [address] [place] [address] [place], [place] Director: Carlo Duke M.D.,PhD Result Comment: The IgG Synthesis rate, CSF and IgG index, CSF are two formulae for estimating the amount of IgG produced in the central nervous system. Evidence of increased synthesis of IgG provides support for the diagnosis of multiple sclerosis. Performed By: #### O LIGO, IGG INDEX #### [facility] Path[facility] [address] [facility] [place], [place] CSF IGG SYNTHESIS -1.5 mg/24 h Normal -9.9-3.3 The [facility] Comment on above: Order Comment: [facility] Site ID: AMD Name: [facility] Address: [address] [place] [address] Dr Ste[place], [place] Director: Carlo Duke M.D.,PhD Performed By: #### O LIGO, IGG INDEX #### [facility] [address] [facility] [place], [place] IGG TOTAL 902 mg/dL Normal 600-1640 The [facility] Comment on above: Order Comment: Resul ting Agency Address Site ID: AMD Name: [facility] Address: [id number] [place] [address] [place] Director: Carlo Duke M.D.,PhD Performed By: #### O CONNOR, IGG INDEX #### [facility] [address] [facility] [place], [place] OLIGOCLONAL BANDS, SERUM AND CSFon 03-26-2025 OLIGOCLONAL BANDS Absent Normal Absent [facility] Comment on above: Order Comment: Dominick arthur Agency Address Site ID: AMD Name: [facility] Address: [id number] [place] [address] Dr SteinerHenryGORDON, [place] Director: Carlo Duke M.D.,PhD Result Comment: FOUR identical (mirror image) gamma restriction bands are observed in the patient's CSF and serum sample. This finding is indicative of systemic rather than intra-cerebral synthesis of gamma globulins. Results should be interpreted in conjunction with all clinical and laboratory data pertaining to this patient. Oligoclonal bands are present in the CSF of more than 85% of patients with clinically definite multiple sclerosis (MS). To distinguish between oligoclonal bands in the CSF due to a peripheral gammopathy and oligoclonal bands due to local production in the AUTOMOTIVE PARTS COUNTERPERSON, serum and CSF should be tested simultaneously. Oligoclonal bands can however be observed in a variety of other diseases, e.g., subacute sclerosing panen- cephalitis, inflammatory polyneuropathy, AUTOMOTIVE PARTS COUNTERPERSON lupus, and brain tumors and infarctions. The clinical significance of a numerical band count, determined by isoelectric focusing, has not been definitively defined. The data should be interpreted in conjunction with all pertinent clinical and laboratory data for this patient. Performed By: #### O CONNOR, IGG INDEX #### [facility] [address] [facility] [place], [place] TOTAL PROTEIN, CSFon 025 TP CSF 16.9 mg/dL Normal 15-45 [facility] Comment on above: Performed By: #### Z INC #### [facility] [address] [facility] [place], [place] Addendum Noteon 03-25-2025 Maintenance Painter Apprentice Authentication Interface Message Text Addended by: MAYELA WHITE on: 03/25/2025 10:44 AM Modules accepted: Orders Normal [facility] Addendum Noteon 03-24-2025 Maintenance Painter Apprentice Authentication Interface Message Text Addended by: FLORIDALMA VILLELA on: 03/24/2025 04:35 PM Modules accepted: Orders Normal [facility] Maintenance Painter Apprentice Authentication Interface Message Text Addended by: FLORIDALMA VILLELA on: 03/24/2025 01:12 PM Modules accepted: Orders Normal [facility] ANCA PANEL FOR VASCULITISon 03-23-2025 MYELOPEROXIDASE < 0.2 Normal <1.0 [facility] Comment on above: Performed By: #### A NCA COELHO VAS #### [facility] [address] [place] [address], MYELOPEROXIDASE INTERPRETATION Negative Normal Negative [facility] Comment on above: Performed By: #### A NCA COELHO VAS #### [facility] [address] [place] [address], PROTEINASE-3 < 0.2 Normal <1.0 [facility] Comment on above: Performed By: #### A NCA COELHO VAS #### [facility] [address] [place] [address], PROTEINASE-3 INTERPRETATION Negative Normal Negative [facility] Comment on above: Performed By: #### A NCA COELHO VAS #### S [facility]OLOGY LABORATORY [address] [place] [address], COPPERon 03-23-2025 FREELANCE OPERATOR 118 mcg/dL Normal 70-175 [facility] Comment on above: Order Comment: Dominick arthur Agency Address Site ID: AMD Name: [facility] Address: [id number] [place] [address] [place] [address] Director: Carlo Duke M.D.,PhD Result Comment: This test was developed and its analytical performance characteristics have been determined by [facility] [place] [place]. It has not been cleared or approved by the U.S. Food and Drug Administration. This assay has been validated pursuant to the CLIA regulations and is used for clinical purposes. Performed By: #### C OP #### [facility] [address] [place] [address] [place], [place] METHYLMALONIC ACIDon 025 MMA 82 nmol/L Normal 55-335 The [facility] Comment on above: Order Comment: Dominick formerly [facility] Address Site ID: AMD Name: [facility] Address: [address] [place], [place] Director: Carlo Duke M.D.,PhD Result Comment: See Note 1 Serum methylmalonic acid (MMA) levels are used to diagnose and monitor several rare inborn errors of metabolism, including methylmalonic aciduria. The enzymatic conversion of MMA to succinic acid requires vitamin B12 (adenosyl-cobalamin) as a cofactor. Serum MMA levels are also used for assessing functional vitamin B12 deficiency. Vitamin B12 is essential for neurodevelopment, particularly early in . Undiagnosed maternal vitamin B12 deficiency may be associated with adverse / outcomes, such as neural tube defects and intrauterine growth restriction. [facility] utilized Multi-Modal Decomposition (MMD) analysis to establish first and second trimester-specific MMA reference intervals in , as given below: MMA, First trimester (<13 wks gestation): 58-167 nmol/L MMA, Second trimester (13-23 wks gestation): 63-241 nmol/L Note 1 This test was developed and its analytical performance characteristics have been determined by [facility]. It has not been cleared or approved by the FDA. This assay has been validated pursuant to the CLIA regulations and is used for clinical purposes. Performed By: #### O LIGO, IGG INDEX #### [facility] [address] [facility] [place], [place] MOG ANTIBODY WITH REFLEX TO TITER, SERUMon 03-23-2025 MOG AB CBA, SERUM Negative Normal NEGATIVE [facility] Comment on above: Order Comment: Dominick formerly [facility] Address Site ID: AMD Name: [facility] Address: [address] [place], [place] Director: Carlo Duke M.D.,PhD Result Comment: This test was developed and its analytical performance characteristics have been determined by [facility]. It has not been cleared or approved by the FDA. This assay has been validated pursuant to the CLIA regulations and is used for clinical purposes. Performed By: #### O LIGO, IGG INDEX #### [facility] [address] [place], [place] NMO AQUAPORIN 4 IGG, CBAon 1 05-23-2024 AQUAPORIN 4 RECEPTOR AB, IGG Negative Normal NEGATIVE [facility] Comment on above: Order Comment: Dominick arthur Agency Address Site ID: AMD Name: [facility] [place] Address: [address] [place] [address] [place], [place] Director: Carlo Duke M.D.,PhD Result Comment: This test was developed and its analytical performance characteristics have been determined by [facility]. It has not been cleared or approved by the FDA. This assay has been validated pursuant to the CLIA regulations and is used for clinical purposes. 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 There are other, more atypical disease that can cause cord changes, but the appearance of your imaging is not typical for those either. We reviewed you do have notable structural changes in your spine that are the more likely cause - we know those exist and can cause your symptoms. Therefore, relieving those factors and seeing how you do makes sense. I will see you back in a few months. Please get labs in the mean time. I will work with surgery for updated post-surgery imaging timeline, assuming you do proceed with surgery (usually about 1 month from your previous imaging). Increase baclofen to 20 mg three times a day for better control of your symptoms (spasms and tightness). Normal [facility] [employer] Interface Message Text Please call the Neurosurgery rural carrier at [phone] to schedule your surgery, pre-admission testing appointment, virtual spine surgery education class, and postoperative appointment. Please call [phone] or [phone] to schedule your imaging study or studies. Once you have the date for your imaging, please call the Neurosurgery rural carrier at [phone] to confirm the timing of the imaging study and schedule a follow-up appointment with Dr. Hernandez to review the results if needed. 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 Authentication Interface Message Text [facility] Department of Neurology Neuroimmunology Clinic New Patient Evaluation CHIEF COMPLAINT: Myelopathy, possible myelitis Neurologic Diagnosis: Myelopathy, possible myelitis Date of onset: 01/2025 Date of diagnosis of MS: NA Disease course at onset: Progressive vs monophasic Current disease course: Progressive vs monophasic Previous disease therapies: None Current disease therapy: None Most recent MRI brain: 03/17/2025 Most recent MRI cervical spine: 03/17/2025 Most recent MRI thoracic spine: 03/17/2025 Last known new clinical relapse or radiographic activity: NA CSF: None JCV serology result and date: None NMO/MOG antibodies: None HISTORY OF ILLNESS: An opinion on this 24 year old female was requested by the patient for myelopathy eval. The patient was accompanied by her mother. At , with additional digits bilaterally (thumbs), s/p repeat surgical correction from ages 1.5 to 6 years. In 2013, had a fall on her tailbone and began moving head backward often as a compensatory movement. This led to imaging of her spine - dx with arthritis and degen changes in the low back and cervical neck in adolescence. No family history of arthritis. 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 With regard to current sx: - right hand developed numbness and paresthesias that ascended proximally over 1 day without cecil weakness 02/15/25 - left hand involvement in the same pattern Since onset, still no major weakness, minor incoordination, numbness primary in the pinky and ring finger bilaterally, so somewhat improved overall from the onset (when whole hand was involved). ~02/26/2025 - woke up and right leg was numb, tingling and prickling. She noted she was limping, difficulty walking and picking up her feet, with a foot drop. 03/01/2025 - Left leg experienced same sx and difficult ambulating increased. She presented to [facility] [place] - who ordered an MRI of lumbar spine - she reports they noted a slight disc bulge in T10. Eval by in the ED with updated imaging demonstrated C Spine hazy T2 lesion spanning two levels with maximal edema C5-C6. Noted to overall have mild to moderate canal stenosis at C5-C6 with large disc extrusion, left > right, and bilateral neural foraminal stenosis. Contrasted study recommended due to concern re: intraspinal lesion; posterior short segment GdE +ve noted along dorsal columns and peripheral WM tracts as below. MR Head WWO, T Spine WO (degenerative changes) without other clear abnormality. CT C Spine 03/18/2025 confirmedspace occupying lesion in the cord without fracture or misalignment. Since sx onset, with persistent moderate to severe spasticity. No bladder/no symptoms, gluteus bilaterally w/ mild numbness (not frankly saddle), but largely preserved subjective sensory throughout her lowers. She was started on baclofen 10 mg TID which has helped somewhat with sleep, but remains quite stiff and in pain. Has been out of work for at least a week. 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 Lives at home with her . She denies any preceding history of ON, TM, brainstem phenomenon or any other neurologic sx. No family history of MS or related neuroinflammatory / autoimmune conditions. PAST HISTORY: Medical History[1] There is no previous surgical history on file. Tobacco: Yes Other types: Cigarettes Family History[2] MEDICATIONS: Current Medications[3] PHYSICAL EXAM: Vitals: 03/23/25 1145 BP: 118/75 Pulse: 92 SpO2: 99% T25W: NA General Appearance: healthy, alert, pleasant, well appearing, in no acute distress Mental status evaluation during the interview and examination showed no major deficits in orientation, cognition, speech fluency, or perceptual disturbances. Affect: appropriate, mood-congruent Visual acuity: OD 20/20 OS 20/20 Correction: None Pupils: PERRL Visual Olivera Full Extraocular movements: Full, without restriction Facial sensation: Intact bilaterally Facial movements: Intact bilaterally Speech: Normal Muscle tone: Right arm spasticity: Mild Right leg spasticity: Moderate to severe - clasp knife Left arm spasticity: Mild Left leg spasticity: Moderate to severe - clasp knife Muscle strength (#/5): Upper Extremity (R/L) Deltoid 5 Deltoid 5 Biceps 5 Biceps 5 Triceps 5 Triceps 5 Wrist Extension 5 Wrist Extension 5 Dorsal Interossei 5 Dorsal Interossei 5 Lower Extremity R/L Hip Flexion 4+ Hip Flexion 4+ Knee Flexion 5 Knee Flexion 5 Knee Extension 5 Knee Extension 5 Dorsiflexion 5- Dorsiflexion 5- Plantar Flexion 5 Plantar Flexion 5 Reflexes brachioradialis 2 brachioradialis 2 biceps 2 biceps 2 triceps 2 triceps 2 patellar 3 patellar 3 Achilles 3 Achilles 3 plantar response mute plantar response mute Coordination: Upper extremity dexterity and rapid movements: Slowed Bilaterally Finger-nose: Normal Bilaterally (slowed by spasticity) Sensor (more content not included)... Normal [facility] [employer] Authentication Interface Message Text Patient identfied by name and date of Pharmacy updated Vital signs taken Patent in exam room ready for MD Normal [facility] [employer] Authentication Interface Message Text ..Patient was identified by name and date of . Lois Padron MA ..Patient at risk for falls:Yes Falls Risk protocol implemented: Yes wheelchair in locked position when not in use for transport ..Patient has been identified as a falls risk due to one or more of the following unsteady/ shuffling gait and use of hodge/furniture for support. Patient/caregiver has been instructed: 1. To call for assistance for ambulation or transfer. 2. Keep wheelchair locked while in the exam room. Exam room has been left open and frequent observation of patient when staff/caregiver not in attendance. .. Chief Complaint Patient presents with New patient, to establish relationship WEIGH BOSS Normal [facility] [employer] Authentication Interface Message Text Neurosurgery Clinic Note Patient Name: Yuliet Dye Date of : 2000 Date of Service: 03/23/2025 I had the pleasure of seeing Yuliet Dye, accompanied by her mom Arelis, in my Neurosurgery Clinic at [facility]. History Chief Complain: arm and leg numbness, walking and balance difficulties Ms. Dye is a 24 year old left hand dominant female who was originally seen by my colleague Dr. Good Michel on 03/17/2025 with a 1 month history of progressive bilateral upper and lower extremity weakness, paresthesias, worse on the right. She did not appear to have any recent infectious history, with no recent hiking or exposure to ticks. She was noted to have chronic neck pain with a history of degenerative disc disease, but did not note any change in her pain symptoms recently. 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 From clinic, she was sent to the emergency department to expedite advanced cross-sectional imaging including an MR C-spine which demonstrated severe stenosis at C5-C6 withan associated intramedullary region of enhancement. On account of her intradural intramedullary findings, she was referred to me for further workup and management recommendations. Ms. Dye describes waking up the morning of 02/12/2025 and noticed right hand paresthesias which slowly began creeping up the RUE over the next few hours. Then a few days later she noticed similar paresthesias in her left hand that also began creeping up the LUE but not as proximal as on the right. Then a few days later she developed RLE significant decreased sensation involving the entire limb, and starting to have difficulty with ambulation. Approximately 1 week later she began developing similar decreased sensation involving her LLE. Since she was last seen in clinic by Dr. Michel, she has noticed her gait imbalance have gotten worse, and she now needs to lean against hodge to ambulate. She also notes that her legs feel sore. She denies any bowel or bladder dysfunction but does have underlying constipation which is at baseline. She denies any significant hand dexterity difficulties, though notes that she normally does have weakness in her left hand that is secondary to her prior polydactyly surgery. She does note however that her writing has become more difficult but is still able to write and denies any issues with using eating utensils, doing up buttons or zippers, or dropping objects. She denied any prodrome of infection, denied any strange positioning while sleeping, denied any trauma history, and denied any family history of any malignancies or syndromes. She did fall on her tailbone when she was in grade 8 and subsequently began having back problems since then. She has been seeing a chiropractor who was adjusting her neck and low back which was helping alleviate her chronic pain symptoms. The modified [employer] score: Motor dysfunction score of the upper extremity: 5 - No dysfunction Motor dysfunction score of the lower extremity: 3 - Able to walk on flat floor with a walking aid (cane or crutch) Sensory dysfunction score of the upper extremities: 2 - Mild sensory loss Sphincter dysfunction score: 3 - Normal micturition Total Score: 13 Mild myelopathy can be de?samantha as mJOA from 15 to 17, moderate as mJOA from 12 to 14, and severe as mJOA from 0 to 11. 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 Dye appeared alert and oriented to person, place, and time, in no acute distress. Language and fund of knowledge are intact. Recent and remote memory are intact. Attention span and concentration are intact. Cranial Nerves: Pupils equal and reactive to light, Face symmetric, and Shoulder shrug normal Motor: Normal muscle bulk and tone, no involuntary movements Delt Bi WE Tri FF FA Left 5 5 5 5 5 4+ Right 5 5 5 5 4+ 4 HF KE DF EHL PF Left 5 5 5 5 5 Right 5 5 5 5 5 Reflexes: Biceps Patellar Maldonado Clonus Left 2+ 2+ Present 3 beats Right 2+ 2+ Present 3 beats Sensation: Decreased in bilateral arms and legs to light touch in all limbs. Gait: Romberg negative. Ataxic wide based gait, significant difficulty with heel walking, toe walking, and tandem gait. Investigations Lab Results Component Value Date WBC 11.6 (H) 03/17/2025 HGB 13.8 03/17/2025 PLT 301 03/17/2025 CR 0.74 03/17/2025 During today's appointment, I reviewed Ms. Dye's imaging including: MR C-Spine (03/17/2025): The noncontrast study demonstrates multilevel cervical spondylosis with degenerative disc disease, wo (more content not included)... Normal [facility] VITAMIN D, 25-HYDROXYon 11-0 VITD25 14.7 ng/mL Low 30-100 [facility] Comment on above: Order Comment: Defic ient : <20.0 ng/mL Insufficient : 20.0-29.9 ng/mL Sufficient : 30.0 - 100.0 ng/mL Potential Toxicity : >100.0 ng/mL Performed By: #### V ITD25 #### [facility] [address] [place] [address], [id number] ZINCon 03-23-2025 ZINC 76 mcg/dL Normal 60-130 [facility] Comment on above: Order Comment: Dominick arthur Agency Address Site ID: AMD Name: [facility] [place] Address: [id number] [place] [address] Dr [place], [place] Director: Carlo Duke M.D.,PhD Result Comment: This test was developed and its analytical performance characteristics have been determined by [facility] [place]. It has not been cleared or approved by the U.S. Food and Drug Administration. This assay has been validated pursuant to the CLIA regulations and is used for clinical purposes. Performed By: #### Z INC #### [facility] [address] [place], [place] [address] CBC W/Diff, Automatedon 10- Absolute Lymph 2.10 X10 3/uL Normal 0.83-4.51 [facility] Comment on above: Order Comment: REDRA W. PREVIOUS SPECIMEN REJECTED DUE TOCLOT. 03/20/2539 Aishwarya Johnson. Performed By: #### L 100.0100 ####[facility] [address] [place], [address] Absolute Neut 8.2 X10 3/uL High 2.0-7.7 [facility] Comment on above: Order Comment: REDRA W. PREVIOUS SPECIMEN REJECTED DUE TOCLOT. 03/20/2539 Aishwarya Johnson. Performed By: #### L 100.0100 ####[facility] [address] [place], [address] Basophils/100 WBC (Bld) 0.3 % Normal 0-1 [facility] Comment on above: Order Comment: REDRA W. PREVIOUS SPECIMEN REJECTED DUE TOCLOT. 03/20/2539 Aishwarya Johnson. Performed By: #### L 100.0100 ####[facility] [address] [place], [address] Eosinophils/100 WBC (Bld) 0.1 % Normal 0-5 [facility] Comment on above: Order Comment: REDRA W. PREVIOUS SPECIMEN REJECTED DUE TOCLOT. 03/20/2539 Aishwarya Johnson. Performed By: #### L 100.0100 ####[facility] [address] [place], [address] Erythrocyte distribution width (RBC) [Ratio] 12.2 % Normal 11.6-14.6 [facility] Comment on above: Order Comment: REDRA W. PREVIOUS SPECIMEN REJECTED DUE TOCLOT. 03/20/2539 Aishwarya Johnson. Performed By: #### L 100.0100 ####[facility] [address] [place], [address] Hematocrit (Bld) [Volume fraction] 36.1 % Low 37-47 [facility] Comment on above: Order Comment: REDRA W. PREVIOUS SPECIMEN REJECTED DUE TOCLOT. 03/20/2539 Aishwarya Johnson. Performed By: #### L 100.0100 ####[facility] [address] [place], [address] Hemoglobin (Bld) [Mass/Vol] 12.3 g/dL Normal 12.0-15.0 [facility] Comment on above: Order Comment: REDRA W. PREVIOUS SPECIMEN REJECTED DUE TOCLOT. 03/20/2539 Aishwarya Johnson. Performed By: #### L 100.0100 ####[facility] [address] [place], [address] IG% 0.300 Normal 0.0-0.9 [facility] Comment on above: Order Comment: REDRA W. PREVIOUS SPECIMEN REJECTED DUE TOCLOT. 03/20/25938 Aishwaryatonio Johnson. Result Comment: IG% - Immature Granulocytes (promyelocytes, myelocytes and metamyelocytes) > 1% indicates that a LEFT SHIFT is Present. Performed By: #### L 100.0100 ####[facility] [address] [place], [address] Lymphocytes/100 WBC (Bld) 19.6 % Normal 19-41 [facility] Comment on above: Order Comment: REDRA W. PREVIOUS SPECIMEN REJECTED DUE TOCLOT. 03/20/2539 Aishwarya Johnson. Performed By: #### L 100.0100 ####[facility] [address] [place], [address] MCH (RBC) [Entitic mass] 29.9 pg Normal 27.0-32.0 [facility] Comment on above: Order Comment: REDRA W. PREVIOUS SPECIMEN REJECTED DUE TOCLOT. 03/20/25938 Aishwarya Johnson. Performed By: #### L 100.0100 ####[facility] [address] [place], [address] MCHC (RBC) [Mass/Vol] 34.1 g/dL Normal 32-36 [facility] Comment on above: Order Comment: REDRA W. PREVIOUS SPECIMEN REJECTED DUE TOCLOT. 03/20/25938 Aishwaryaamelia Johnson. Performed By: #### L 100.0100 ####[facility] [address] [place], [address] MCV (RBC) [Entitic vol] 87.8 fL Normal 81-99 [facility] Comment on above: Order Comment: REDRA W. PREVIOUS SPECIMEN REJECTED DUE TOCLOT. 03/20/2539 Aishwarya Johnson. Performed By: #### L 100.0100 ####[facility] [address] [place], [address] Monocytes/100 WBC (Bld) 3.2 % Normal 0-10 [facility] Comment on above: Order Comment: REDRA W. PREVIOUS SPECIMEN REJECTED DUE TOCLOT. 03/20/25938 Aishwaryaamelia Johnson. Performed By: #### L 100.0100 ####[facility] [address] [place], [address] Neutrophils/100 WBC (Bld) 76.5 % High 47-70 [facility] Comment on above: Order Comment: REDRA W. PREVIOUS SPECIMEN REJECTED DUE TOCLOT. 03/20/2539 Aishwarya Johnson. Performed By: #### L 100.0100 ####[facility] [address] [place], [address] Nucleated RBC (Bld) [#/Vol] 0 10*3/uL Normal 0-5 [facility] Comment on above: Order Comment: REDRA W. PREVIOUS SPECIMEN REJECTED DUE TOCLOT. 03/20/25938 Aishwarya Johnson. Performed By: #### L 100.0100 ####[facility] [address] [place], [address] Platelet mean volume (Bld) [Entitic vol] 9.4 fL Normal 6.2-12.0 [facility] Comment on above: Order Comment: REDRA W. PREVIOUS SPECIMEN REJECTED DUE TOCLOT. 03/20/25938 Aishwarya Johnson. Performed By: #### L 100.0100 ####[facility] [address] [place] [place], [address] Platelets (Bld) [#/Vol] 298 10*3/uL Normal 150-450 [facility] Comment on above: Order Comment: REDRA W. PREVIOUS SPECIMEN REJECTED DUE TOCLOT. 03/20/25938 Aishwarya Johnson. Performed By: #### L 100.0100 ####[facility] [address] [place], [address] RBC (Bld) [#/Vol] 4.11 10*6/uL Low 4.2-5.4 [facility] Comment on above: Order Comment: REDRA W. PREVIOUS SPECIMEN REJECTED DUE TOCLOT. 03/20/25938 Aishwarya Johnson. Performed By: #### L 100.0100 ####[facility] [address] [place], [address] RDW SD 39.5 fl Normal 35.1-43.9 [facility] Comment on above: Order Comment: REDRA W. PREVIOUS SPECIMEN REJECTED DUE TOCLOT. 03/20/25938 Aishwarya Johnson. Performed By: #### L 100.0100 ####[facility] [address] [place], [address] WBC (Bld) [#/Vol] 10.7 10*3/uL Normal 4.4-11.0 [facility] Comment on above: Order Comment: SHERITA West. PREVIOUS SPECIMEN REJECTED DUE TOCLOT. 03/20/25938 Aishwarya Johnson. Performed By: #### L 100.0100 ####[facility] [address] [place], [address] Absolute Neut Normal 2.0-7.7 [facility] Comment on above: Result Comment: This specimen has been REJECTED due to Laboratory criteria: Clotted. SUZANNE CALLAHAN has been notified of need of recollection. 03/20/25937 Aishwarya Alex Performed By: #### L 100.0100, L500.4050 #### [facility] [address] [facility] [address] HCT Normal 37-47 [facility] Comment on above: Result Comment: This specimen has been REJECTED due to Laboratory criteria: Clotted. SUZANNE CALLAHAN has been notified of need of recollection. 03/20/25937 Aishwarya Johnson Performed By: #### L 100.0100, L500.4050 #### [facility] [address] [facility] [address] HGB Normal 12.0-15.0 [facility] Comment on above: Result Comment: This specimen has been REJECTED due to Laboratory criteria: Clotted. SUZANNE CALLAHAN has been notified of need of recollection. 03/20/25937 Aishwarya Alex Performed By: #### L 100.0100, L500.4050 #### [facility] [address] [place], [address] MCH Normal 27.0-32.0 [facility] Comment on above: Result Comment: This specimen has been REJECTED due to Laboratory criteria: Clotted. SUZANNE CALLAHAN has been notified of need of recollection. 03/20/25937 Aishwaryatonio Johnson Performed By: #### L 100.0100, L500.4050 #### [facility] [address] [place], [address] MCHC Normal 32-36 [facility] Comment on above: Result Comment: This specimen has been REJECTED due to Laboratory criteria: Clotted. SUZANNE CALLAHAN has been notified of need of recollection. 03/20/25937 Aishwarya Johnson Performed By: #### L 100.0100, L500.4050 #### [facility] [address] [place], [address] MCV Normal 81-99 [facility] Comment on above: Result Comment: This specimen has been REJECTED due to Laboratory criteria: Clotted. SUZANNE CALLAHAN has been notified of need of recollection. 03/20/25937 Aishwarya Alex Performed By: #### L 100.0100, L500.4050 #### [facility] [address] [place], [address] NEUT% Normal 47-70 [facility] Comment on above: Result Comment: This specimen has been REJECTED due to Laboratory criteria: Clotted. SUZANNE CALLAHAN has been notified of need of recollection. 03/20/25937 Aishwarya Johnson Performed By: #### L 100.0100, L500.4050 #### [facility] [address] [place], [address] PLT Normal 150-450 [facility] Comment on above: Result Comment: This specimen has been REJECTED due to Laboratory criteria: Clotted. SUZANNE CALLAHAN has been notified of need of recollection. 03/20/25937 Aishwarya Johnson Performed By: #### L 100.0100, L500.4050 #### [facility] [address] [place], [address] RBC Normal 4.2-5.4 [facility] Comment on above: Result Comment: This specimen has been REJECTED due to Laboratory criteria: Clotted. SUZANNE CALLAHAN has been notified of need of recollection. 03/20/25937 Aishwarya Johnson Performed By: #### L 100.0100, L500.4050 #### [facility] [address] [place], [address] RDW CV Normal 11.6-14.6 [facility] Comment on above: Result Comment: This specimen has been REJECTED due to Laboratory criteria: Clotted. SUZANNE CALLAHAN has been notified of need of recollection. 03/20/25937 Aishwarya Johnson Performed By: #### L 100.0100, L500.4050 #### [facility] [address] [place], [address] RDW SD Normal 35.1-43.9 [facility] Comment on above: Result Comment: This specimen has been REJECTED due to Laboratory criteria: Clotted. SUZANNE CALLAHAN has been notified of need of recollection. 03/20/25937 Aishwarya Johnson Performed By: #### L 100.0100, L500.4050 #### [facility] [address] [place], [address] WBC Normal 4.4-11.0 [facility] Comment on above: Result Comment: This specimen has been REJECTED due to Laboratory criteria: Clotted. SUZANNE CALLAHAN has been notified of need of recollection. 03/20/25937 Aishwarya Johnson Performed By: #### L 100.0100, L500.4050 #### [facility] [address] [place], [address] Comprehensive Metabolic Prof ilon 03-20-2025 Albumin [Mass/Vol] 4.2 g/dL Normal 3.5-5.[address] [facility] Comment on above: Order Comment: REDRA W. PREVIOUS SPECIMEN REJECTED DUE TO SPECIMEN BEING HEMOLYZED. 03/20/25956 Thor Nicole Performed By: #### L 501.5200, L500.4050 #### [facility] [address] [place], [address] Albumin/Globulin [Mass ratio] 1.6 {ratio} Normal 0.9-2.4 [facility] Comment on above: Order Comment: REDRA W. PREVIOUS SPECIMEN REJECTED DUE TO SPECIMEN BEING HEMOLYZED. 03/20/25956 Thor Nicole Performed By: #### L 501.5200, L500.4050 #### [facility] [address] [place], [address] ALK PHOS 52 U/L Normal 35-104 [facility] Comment on above: Order Comment: REDRA W. PREVIOUS SPECIMEN REJECTED DUE TO SPECIMEN BEING HEMOLYZED. 03/20/25956 Thor Nicole Performed By: #### L 501.5200, L500.4050 #### [facility] [address] [place], [address] ALT [Catalytic activity/Vol] 31 U/L Normal <=34 [facility] Comment on above: Order Comment: REDRA W. PREVIOUS SPECIMEN REJECTED DUE TO SPECIMEN BEING HEMOLYZED. 03/20/25956 Thor Nicole Performed By: #### L 501.5200, L500.4050 #### [facility] [address] [place], [address] AST [Catalytic activity/Vol] 23 U/L Normal <=31 [facility] Comment on above: Order Comment: REDRA W. PREVIOUS SPECIMEN REJECTED DUE TO SPECIMEN BEING HEMOLYZED. 03/20/25956 Thor Nicole Performed By: #### L 501.5200, L500.4050 #### [facility] [address] [place], [address] Bilirubin [Mass/Vol] 0.33 mg/dL Normal 0.00-1.30 [facility] Comment on above: Order Comment: REDRA W. PREVIOUS SPECIMEN REJECTED DUE TO SPECIMEN BEING HEMOLYZED. 03/20/25956 Thor Nicole Performed By: #### L 501.5200, L500.4050 #### [facility] [address] [place], [address] BUN/CRE 8.8 RATIO Low 10-20 [facility] Comment on above: Order Comment: REDRA W. PREVIOUS SPECIMEN REJECTED DUE TO SPECIMEN BEING HEMOLYZED. 03/20/25956 Thor King. Performed By: #### L 501.5200, L500.4050 #### [facility] [address] [place], [address] Calcium [Mass/Vol] 8.9 mg/dL Normal 7.6-11.[address] [facility] Comment on above: Order Comment: REDRA W. PREVIOUS SPECIMEN REJECTED DUE TO SPECIMEN BEING HEMOLYZED. 03/20/25956 Thor King. Performed By: #### L 501.5200, L500.4050 #### [facility] [address] [place], [address] Chloride [Moles/Vol] 106 mmol/L Normal 98-108 [facility] Comment on above: Order Comment: REDRA W. PREVIOUS SPECIMEN REJECTED DUE TO SPECIMEN BEING HEMOLYZED. 03/20/25956 Thor King. Performed By: #### L 501.5200, L500.4050 #### [facility] [address] [place], [address] CO2 [Moles/Vol] 23.8 mmol/L Normal 21.0-32.0 [facility] Comment on above: Order Comment: REDRA W. PREVIOUS SPECIMEN REJECTED DUE TO SPECIMEN BEING HEMOLYZED. 03/20/25956 Thor King. Performed By: #### L 501.5200, L500.4050 #### [facility] [address] [place], [address] Creatinine [Mass/Vol] 0.79 mg/dL Normal 0.70-1.20 [facility] Comment on above: Order Comment: REDRA W. PREVIOUS SPECIMEN REJECTED DUE TO SPECIMEN BEING HEMOLYZED. 03/20/25956 Thor King. Performed By: #### L 501.5200, L500.4050 #### [facility] [address] [place], [address] ECRCL 128.48 ml/min Normal 50-250 [facility] Comment on above: Order Comment: REDRA W. PREVIOUS SPECIMEN REJECTED DUE TO SPECIMEN BEING HEMOLYZED. 03/20/25956 Thor Nicole Performed By: #### L 501.5200, L500.4050 #### [facility] [address] [place], [address] GAP 10 Normal 5-15 [facility] Comment on above: Order Comment: REDRA W. PREVIOUS SPECIMEN REJECTED DUE TO SPECIMEN BEING HEMOLYZED. 03/20/25956 Thor King. Performed By: #### L 501.5200, L500.4050 #### [facility] [address] [place], [address] GFR/1.73 sq M.predicted among non-blacks MDRD (S/P/Bld) [Vol rate/Area] 108 mL/min/{1.73_m2} Normal >60 [facility] Comment on above: Order Comment: REDRA W. PREVIOUS SPECIMEN REJECTED DUE TO SPECIMEN BEING HEMOLYZED. 03/20/25956 Thor Nicole Result Comment: mL/m in/1.73m2 CKD-EPI Creatinine Equation (2020) Performed By: #### L 501.5200, L500.4050 #### [facility] [address] [place], [address] Globulin (S) [Mass/Vol] 2.7 g/dL Normal 2.2-4.2 [facility] Comment on above: Order Comment: REDRA W. PREVIOUS SPECIMEN REJECTED DUE TO SPECIMEN BEING HEMOLYZED. 03/20/25956 Thor King. Performed By: #### L 501.5200, L500.4050 #### [facility] [address] [place], [address] Glucose [Mass/Vol] 122 mg/dL High 70-[address] [facility] Comment on above: Order Comment: REDRA W. PREVIOUS SPECIMEN REJECTED DUE TO SPECIMEN BEING HEMOLYZED. 03/20/25956 Thor King. Performed By: #### L 501.5200, L500.4050 #### [facility] [address] [place], [address] Potassium [Moles/Vol] 3.8 mmol/L Normal 3.3-5.1 [facility] Comment on above: Order Comment: REDRA W. PREVIOUS SPECIMEN REJECTED DUE TO SPECIMEN BEING HEMOLYZED. 03/20/25956 Thor King. Performed By: #### L 501.5200, L500.4050 #### [facility] [address] [place], [address] Sodium [Moles/Vol] 140 mmol/L Normal 133-[address] [facility] Comment on above: Order Comment: REDRA W. PREVIOUS SPECIMEN REJECTED DUE TO SPECIMEN BEING HEMOLYZED. 03/20/25956 Thor King. Performed By: #### L 501.5200, L500.4050 #### [facility] [address] [place], [address] T PROT 6.9 g/dL Normal 5.9-8.4 [facility] Comment on above: Order Comment: REDRA W. PREVIOUS SPECIMEN REJECTED DUE TO SPECIMEN BEING HEMOLYZED. 03/20/25956 Thor King. Performed By: #### L 501.5200, L500.4050 #### [facility] [address] [place], [address] Urea nitrogen [Mass/Vol] 7 mg/dL Normal 4-19 [facility] Comment on above: Order Comment: REDRA W. PREVIOUS SPECIMEN REJECTED DUE TO SPECIMEN BEING HEMOLYZED. 03/20/25956 Thor Nicole Performed By: #### L 501.5200, L500.4050 #### [facility] [address] [place], [address] ALB Normal 3.5-5.0 [facility] Comment on above: Result Comment: This specimen has been REJECTED due to Laboratory criteria: Hemolyzed. SUZANNE IN ER has been notified of need of recollection. 03/20/25955 Thor R Stoner Performed By: #### L 100.0100, L500.4050 #### [facility] [address] [place], [address] ALK PHOS Normal 35-104 [facility] Comment on above: Result Comment: This specimen has been REJECTED due to Laboratory criteria: Hemolyzed. SUZANNE IN ER has been notified of need of recollection. 03/20/25955 Thor R Stoner Performed By: #### L 100.0100, L500.4050 #### [facility] [address] [place], [address] ALT Normal <=34 [facility] Comment on above: Result Comment: This specimen has been REJECTED due to Laboratory criteria: Hemolyzed. SUZANNE IN ER has been notified of need of recollection. 03/20/25955 Thor R Stoner Performed By: #### L 100.0100, L500.4050 #### [facility] [address] [place], [address] AST Normal <=31 [facility] Comment on above: Result Comment: This specimen has been REJECTED due to Laboratory criteria: Hemolyzed. SUZANNE IN ER has been notified of need of recollection. 03/20/25955 Thor R Stoner Performed By: #### L 100.0100, L500.4050 #### [facility] [address] [place], [address] BUN Normal 4-19 [facility] Comment on above: Result Comment: This specimen has been REJECTED due to Laboratory criteria: Hemolyzed. SUZANNE IN ER has been notified of need of recollection. 03/20/25955 Thor R Stoner Performed By: #### L 100.0100, L500.4050 #### [facility] [address] [place], [address] BUN/CRE Normal 10-20 [facility] Comment on above: Result Comment: This specimen has been REJECTED due to Laboratory criteria: Hemolyzed. SUZANNE IN ER has been notified of need of recollection. 03/20/25955 Thor Huddlestonr Performed By: #### L 100.0100, L500.4050 #### [facility] [address] [place], [address] Calcium Normal 7.6-11.0 [facility] Comment on above: Result Comment: This specimen has been REJECTED due to Laboratory criteria: Hemolyzed. SUZANNE IN ER has been notified of need of recollection. 03/20/25955 Thor Huddlestonr Performed By: #### L 100.0100, L500.4050 #### [facility] [address] [place], [address] CL Normal 98-108 [facility] Comment on above: Result Comment: This specimen has been REJECTED due to Laboratory criteria: Hemolyzed. SUZANNE IN ER has been notified of need of recollection. 03/20/25955 Thor Huddlestonr Performed By: #### L 100.0100, L500.4050 #### [facility] [address] [place], [address] CO2 Normal 21.0-32.0 [facility] Comment on above: Result Comment: This specimen has been REJECTED due to Laboratory criteria: Hemolyzed. SUZANNE IN ER has been notified of need of recollection. 03/20/25955 Thor Huddlestonr Performed By: #### L 100.0100, L500.4050 #### [facility] [address] [place], [address] CREAT,SERUM Normal 0.70-1.20 [facility] Comment on above: Result Comment: This specimen has been REJECTED due to Laboratory criteria: Hemolyzed. SUZANNE IN ER has been notified of need of recollection. 03/20/25955 Thor R Stoner Performed By: #### L 100.0100, L500.4050 #### [facility] [address] [place], [address] eGFR Normal >60 [facility] Comment on above: Result Comment: This specimen has been REJECTED due to Laboratory criteria: Hemolyzed. SUZANNE IN ER has been notified of need of recollection. 03/20/25955 Thor R Stoner Performed By: #### L 100.0100, L500.4050 #### [facility] [address] [place], [address] GAP Normal 5-15 [facility] Comment on above: Result Comment: This specimen has been REJECTED due to Laboratory criteria: Hemolyzed. SUZANNE IN ER has been notified of need of recollection. 03/20/25955 Thor R Stoner Performed By: #### L 100.0100, L500.4050 #### [facility] [address] [place], [address] GLU Normal 70-99 [facility] Comment on above: Result Comment: This specimen has been REJECTED due to Laboratory criteria: Hemolyzed. SUZANNE IN ER has been notified of need of recollection. 03/20/25955 Thor R Stoner Performed By: #### L 100.0100, L500.4050 #### [facility] [address] [place], [address] Potassium Normal 3.3-5.1 [facility] Comment on above: Result Comment: This specimen has been REJECTED due to Laboratory criteria: Hemolyzed. SUZANNE IN ER has been notified of need of recollection. 03/20/25955 Thor R Stoner Performed By: #### L 100.0100, L500.4050 #### [facility] [address] [place], [address] T BILI Normal 0.00-1.30 [facility] Comment on above: Result Comment: This specimen has been REJECTED due to Laboratory criteria: Hemolyzed. SUZANNE IN ER has been notified of need of recollection. 03/20/25955 Thor Huddlestonr Performed By: #### L 100.0100, L500.4050 #### [facility] [address] [place], [address] T PROT Normal 5.9-8.4 [facility] Comment on above: Result Comment: This specimen has been REJECTED due to Laboratory criteria: Hemolyzed. SUZANNE IN ER has been notified of need of recollection. 03/20/25955 Thor Huddlestonr Performed By: #### L 100.0100, L500.4050 #### [facility] [address] [place], [address] Comprehensive Metabolic Profil Normal 133-145 [facility] Comment on above: Result Comment: This specimen has been REJECTED due to Laboratory criteria: Hemolyzed. SUZANNE IN ER has been notified of need of recollection. 03/20/25955 Thor King Performed By: #### L 100.0100, L500.4050 #### [facility] [address] [place], [address] Emergency Department Summary on 03-20-2025 Emergency Department Summary [facility] Medical Records Department [address] [place] [address] Emergency Department Summary 03/20/25 MR#: [id number] Acct: [id number] Name: YULIET DYE PHOEBE Rep #: [id number] : 2000 24 From: Jasmina Arroyo MD PCP: Care Physician,No Primary Status:DEP ER Location: ED HPI History of Present Illness Chief Complaint: Back Narrative Narrative: Patient is a 24-year-old female presenting to the emergency department for abdominal cramping, 2 episodes of diarrhea and nausea with 1 episode of nonbloody nonbilious vomiting this morning. Patient has a past medical history of back pain with intermittent weakness and numbness in her lower extremities. States that she has been here to the emergency department twice and was referred up to [facility] to see a neurologist who ordered MRI imaging of her spine and brain. States that she has a bulging disc in her lower lumbar however it was not compressing anything. 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 She had no lesions in the brain. She reports no new back pain, neurologic symptoms, bowel or bladder retention or incontinence, saddle anesthesia. Denies any fevers or headache. States that she is not here for the back pain or neurologic symptoms that have been present for weeks. She reports that she started to have abdominal cramping this morning and had 2 episodes of nonbloody diarrhea. Denies any recent antibiotic use or travel. States that she did take something to have a bowel movement last night and she does not know if she overdid it. She reports she had 1 episode of vomiting nonbloody, nonbilious. Denies any dysuria or hematuria. She is also endorsing intermittent muscle spasms. States this is new for her. [facility] Medical History Heart murmur Numbness Home Medications ???Medication ???Instructions ???Recorded ???Last Taken ???Type methylprednisolone 4 mg tablets in 4 mg PO UD ##1 02/27/25 Unknown Rx a dose pack ondansetron 4 mg disintegrating 4 mg PO Q8H PRN PRN Nausea #10 tab s 03/20/25 Unknown Rx tablet Allergy/AdvReac Type Severity Reaction Status Date / Time No Known Allergies Allergy Verified 03/20/25 08:33 Social History Smoking Status: Current some day smoker tobacco type: e-cigarettes ROS ROS ED ROS Narrative see HPI EXAM Physical Exam Narrative Exam Narrative: Vital signs: Reviewed General: Alert and oriented x 3. No acute distress HEENT: Head is normocephalic and atraumatic, sinuses nontender, pupils equal round and reactive. Nares are patent. Oropharynx and throat exams normal. Neck: Supple without lymphadenopathy nontender Cardiovascular: Regular rate and rhythm, no murmurs. No rubs or gallops. Normal S1 and S2 Respiratory: Clear to auscultation bilaterally. No wheezes, rales, rhonchi Abdominal: Soft and very mildly tender to palpation in the left lower quadrant. Normal bowel sounds. No guarding or rebound. Nonsurgical abdomen. Extremities: No tenderness. No bruising. Normal range of motion. Normal sensation. Skin: No rash or redness. Neurological: Cranial nerves II through XII are grossly intact. Decreased sensation in bilateral lower extremities which patient states is unchanged from baseline. 4/5 strength in bilateral lower extremities. The rest of the physical exam is unremarkable Const Vital Signs: 03/20/25 08:33 03/20/25 10:33 03/20/25 11:24 Temperature 99.2 F H 97.8 F Temperature Source Oral Pulse Rate 125 H 98 86 Respiratory Rate 16 16 16 Blood Pressure 152/88 H 113/77 107/75 Blood Pressure Mean 109 89 85 Pulse Ox 97 100 97 Oxygen Delivery Method Room Air Room Air MDM MDM MDM Narrative Medical decision making narrative: Patient is a 24-year-old female presenting to the emergency for abdominal cramping, nausea, vomiting and diarrhea. Patient was seen and examined. Vitals are stable. She is mildly tachycardic on arrival 125. She is afebrile. The symptoms started this morning. She has no significant abdominal tenderness on exam. I do not think she needs CT imaging of her abdomen at this time. Will treat symptomatically with fluids and Zofran. Will also give Flexeril to help with the muscle spasms. Will obtain blood work to assess her electrolytes given the muscle spasms that she is having. Again she is not here for back pain or neurologic symptoms that are being worked up outpatient. She has no new symptoms related to this. She states that her neurologic exam is baseline for her. CBC with no leukocytosis and a normal hemoglobin. BMP with no significant abnormalities. Urinalysis with 1+ (more content not included)... Normal [facility] Magnesiumon 03-20-2025 Magnesium [Mass/Vol] 2.2 mg/dL Normal 1.5-2.2 [facility] Comment on above: Order Comment: SHERITA [place]. PREVIOUS SPECIMEN REJECTED DUE TO SPECIMEN BEING HEMOLYZED. 03/20/25 0957 Thor King. Performed By: #### L 501.5200, L500.4050 #### [facility] [address] [place], [address] ,Urineon 03-20-2025 Beta HCG ( test) Ql (U) Negative Normal [facility] Comment on above: Result Comment: Very dilute urine specimens, as indicated by a low specific gravity, may not contain national sales representative levels of hCG. If is still suspected, a first morning urine specimen should be collected 48 hours later and tested. Performed By: #### L 400.7600, L400.0001 #### [facility] [address] [place], [address] Progress Noteson 03-20-2025 Maintenance Painter Apprentice Authentication Interface Message Text Chart reviewed. Ms. Dye is a 24 year old female who presented with a 1 month history of symptoms consistent with progressive myelopathy. Her imaging demonstrated C5-C6 stenosis which spinal cord enhancement in the dorsal cord at the stenotic level. The lesion does not appear classic for common intramedullary lesions and therefore the differential is quite broad. I have arranged to see Ms. Dye urgently to formally evaluate her pathology and provide further management recommendations. I have also arranged an urgent Neurology consult to evaluate for inflammatory / demyelinating diseases as a potential etiology. Ms. Dye should monitor her symptoms for any new or progressive hand and foot numbness, hand dexterity difficulties, gait instability, any weakness or numbness in her upper or lower extremities, or any bladder or bowel dysfunction. Should she experience any of this, she should seek medical attention immediately. Sebastian Hernandez MD MA Department of Neurological Surgery [id number] [facility] [place], [address] Normal [facility], Completeon 03-20 BACTERIA 1+ /hpf Normal None Seen [facility] Comment on above: Order Comment: CLEAN CATCH Performed By: #### L 400.7600, L400.0001 #### [facility] [address] [place], [address] EPI,SQUAMOUS 0-5 SEEN Normal 5-10 [facility] Comment on above: Order Comment: CLEAN CATCH Performed By: #### L 400.7600, L400.0001 #### [facility] [address] [place], [address] WBC 0-5 SEEN Normal 0-5 [facility] Comment on above: Order Comment: CLEAN CATCH Performed By: #### L 400.7600, L400.0001 #### [facility] [address] [place], [address] Mucus Ql (Urine sed) 0 SEEN Normal [facility] Comment on above: Order Comment: CLEAN CATCH Performed By: #### L 400.7600, L400.0001 #### [facility] [address] [place], [address] RBC 0 SEEN Normal 0-5 [facility] Comment on above: Order Comment: CLEAN CATCH Performed By: #### L 400.7600, L400.0001 #### [facility] [address] [place], [address] CT C-SPINE W/O CONTRASTon CT C-SPINE W/O CONTRAST EXAMINATION: CT C-SPINE W/O CONTRASTPRO 03/18/2025 02:37 AM CLINICAL HISTORY: operative planning ASSOCIATED DIAGNOSIS: operative planning ORDERING PROVIDER: GERI MALONEY TECHNOLOGISTS NOTE: COMPARISON: MR C-SPINE W/+W/O 03/17/2025 11:39 PM TECHNIQUE: Thin isotropic axial images were obtained from the skull base to the upper thoracic spine without intravenous contrast. 2D sagittal and coronal reconstructions were obtained from the axial data. FINDINGS: Vertebrae: No acute fracture or traumatic malalignment. No aggressive osseous lesions. Straightening of the cervical spine. Intervertebral disc protrusion with at least moderate spinal canal stenosis at C5-C6. Soft Tissues: No acute abnormality. IMPRESSION: No acute cervical spine fracture or traumatic malalignment. Previously noted space-occupying lesion in the cord at the level of C5-C6 is better appreciated on MRI cervical spine with contrast 03/17/2025. MACRO: None I have personally reviewed the images and agree with the resident's interpretation. Normal [facility] ED Noteson 03-18-2025 Maintenance Painter Apprentice Authentication Interface Message Text Pt signed AMA form with Dr Car Normal [facility] ED Provider Noteson 03-18-20 Maintenance Painter Apprentice Authentication Interface Message Text I received sign out on the patient. She wants to leave AMA, this was discussed with neurosurgery team. She will follow up with them. She has medical decision making capacity and understands the risks of leaving AMA. Form completed. Javy Car MD Normal [facility] Maintenance Painter Apprentice Authentication Interface Message Text The patient was signed out to me and is accepted to NS service. Normal [facility] MR C-SPINE W/+W/Oon 03-18-20 MR C-SPINE W/+W/O EXAMINATION: MR C-SPINE W/+W/OPRO 03/17/2025 11:36 PM CLINICAL HISTORY: possible c spine mass? ASSOCIATED DIAGNOSIS: possible c spine mass? ORDERING PROVIDER: PARVEZ GEORGES [employer] NOTE: Did not have Csp with only order, had to complete w/wo. COMPARISON: MRI cervical spine without contrast 03/17/2025 1819 hours. TECHNIQUE: Patient questionnaire was completed and was reviewed by MRI personnel prior to the patient entering the scanner. Multiplanar, multisequence MR imaging of the cervical spine was performed with and without intravenous contrast. INTRA-PROCEDURE MEDS: Gadoterate Meglumine (DOTAREM) 10 MMOL/20ML solution 20 mL Route: Intravenous FINDINGS: Counting reference: Craniocervical junction. Anatomic variants: None. Moderate spinal canal stenosis with a large disc extrusion eccentric to the left at C5-6. There is moderate spinal canal and severe bilateral foraminal stenosis. Please see same day MR C-spine without contrast. Heterogenous liver/T2 hyperintensity spanning C5-6 with minimal associated cord expansion. There is a 0.4 x 0.4 x 0.8 cm enhancing lesion within the dorsal spinal cord at C5-6 (series 9, image 9 and series 10, image 33). There is no evidence of epidural involvement. IMPRESSION: A 0.8 cm lesion within the dorsal spinal cord at C5-6. This is most consistent with a neoplastic process. Moderate spinal canal stenosis with a large disc extrusion eccentric to the left at C5-6. There is moderate spinal canal and severe bilateral foraminal stenosis.For degenerative findings, please see same day MR C-spine without contrast. MACRO: None I have personally reviewed the images and agree with the resident's interpretation. Normal [facility] MR HEAD W/+W/Oon 03-18-2025 MR HEAD W/+W/O EXAMINATION: MR HEAD W/+W/OPRO 03/17/2025 11:36 PM CLINICAL HISTORY: potential cervial spine mass ASSOCIATED DIAGNOSIS: potential cervial spine mass ORDERING PROVIDER: PAR[employer]OR[employer] NOTE: COMPARISON: MR C-SPINE W/O 03/17/2025 6:19 PM TECHNIQUE: Patient questionnaire was completed, and was reviewed by MRI personnel prior to the patient entering the scanner. Multiplanar, multisequence MR imaging of the head was performed with and without intravenous contrast. INTRA-PROCEDURE MEDS: Gadoterate Meglumine (DOTAREM) 10 MMOL/20ML solution 20 mL Route: Intravenous FINDINGS: Brain Parenchyma: No acute infarct or intracranial hemorrhage. No solid intracranial mass lesion, mass effect or herniation. The white matter is within normal limits of signal intensity for age. Ventricles and Sulci: Normal. Vasculature: Major intracranial vessels have normal flow voids suggesting patency. Bones: No marrow replacement process. Other Extracranial Structures: The paranasal sinuses and mastoid air cells are clear. The orbits and extracranial soft tissues demonstrate no significant abnormality. IMPRESSION: No brain metastasis. MACRO: None I have personally reviewed the images and agree with the resident's interpretation. Normal [facility] AUTOIMMUNE MULTIPLEX PANELon 03-17-2025 MINA SCREEN Negative Normal Negative [facility] Comment on above: Order Comment: Dominick arthur Agency Address Site ID: AMD [facility] Address: [id number] [place] [address] Dr [place], [place] Director: Carol Duke M.D.,PhD Performed By: #### O LIGO, IGG INDEX #### [facility] [address] [facility] [address] [facility] [address] [place], [place] [address] BASIC METABOLIC PANELon - Anion gap [Moles/Vol] 15 mmol/L Normal - [facility] Comment on above: Performed By: #### O LIGO, IGG INDEX #### [facility] [address] [facility] [place], [place] Calcium [Mass/Vol] 9.6 mg/dL Normal 8.6-10.3 [facility] Comment on above: Performed By: #### O LIGO, IGG INDEX #### [facility] [address] [facility] [place], [place] Chloride [Moles/Vol] 106 mmol/L Normal 98-107 [facility] Comment on above: Performed By: #### O LIGO, IGG INDEX #### [facility] [address] [facility] [place], [place] CO2 [Moles/Vol] 24 mmol/L Normal 21-31 [facility] Comment on above: Performed By: #### O LIGO, IGG INDEX #### [facility] [address] [facility] [place], [place] Creatinine [Mass/Vol] 0.74 mg/dL Normal 0.60-1.20 [facility] Comment on above: Performed By: #### O LIGO, IGG INDEX #### [facility] [address] [facility] [place], [place] ESTIMATED GFR (CKD-EPI) 116 mL/min/1.73sqm Normal >=60 [facility] Comment on above: Result Comment: 2020 CKD EPI Equation using Creatinine without Race Comment: Estimated glomerular filtration rate (eGFR) is calculated without a race coefficient. Values should be interpreted in the context of the patient's full clinical presentation. Reference: 1. Vicente C, Luca M, Paolo CARLSON, et al.. A Unifying Approach for GFR Estimation: Recommendations of the NKF-ASN Task Force on Reassessing the Inclusion of Race in Diagnosing Kidney Disease. [place] Journal of Kidney Diseases 2021;79(2):268-88.e1. 2. N Engl J Med 1 Vol. 385 Issue 19 Pages 6335-6064 Performed By: #### O LIGO, IGG INDEX #### [facility] [address] [facility] [place], [place] Glucose [Mass/Vol] 93 mg/dL Normal 74-109 [facility] Comment on above: Performed By: #### O LIGO, IGG INDEX #### [facility] [address] [facility] [place], [place] Potassium [Moles/Vol] 3.8 mmol/L Normal 3.5-5.0 [facility] Comment on above: Performed By: #### O CONNOR, IGG INDEX #### [facility] [address] [place] [address] [place], [place] Sodium [Moles/Vol] 141 mmol/L Normal 136-145 [facility] Comment on above: Performed By: #### O CONNOR, IGG INDEX #### [facility] [address] [place] [address] [place], [place] Urea nitrogen [Mass/Vol] 9 mg/dL Normal 7-25 [facility] Comment on above: Performed By: #### O CONNOR, IGG INDEX #### [facility] [address] [place] [address] Dr [place], [place] C-REACTIVE PROTEINon 025 CRP 0.9 mg/dL High <0.5 [facility] Comment on above: Performed By: #### Bianca RYAN, IGG INDEX #### [facility] [address] [place] [address] [place], [place] CBC WITH DIFFERENTIALon 02-19 Basophils (Bld) [#/Vol] 0.07 10*3/uL Normal 0.00-0.20 [facility] Comment on above: Performed By: #### O CONNOR, IGG INDEX #### [facility] [address] [place] [address] [place], [place] Basophils/100 WBC (Bld) 0.6 % Normal <=1.9 T [facility] Comment on above: Performed By: #### O LIGBianca, IGG INDEX #### [facility] [address] [place] [address] Dr [place], [place] Eosinophils (Bld) [#/Vol] 0.05 10*3/uL Normal 0.00-0.70 [facility] Comment on above: Performed By: #### O LIGBianca, IGG INDEX #### [facility] [address] [place] [address] Dr [place], [place] Eosinophils/100 WBC (Bld) 0.4 % Normal 0.1-4.0 [facility] Comment on above: Performed By: #### O LIGBianca, IGG INDEX #### [facility] [address] [facility] [place], [place] Erythrocyte distribution width (RBC) [Ratio] 13.1 % Normal 11.5-14.5 [facility] Comment on above: Performed By: #### O LIGO, IGG INDEX #### [facility] [address] [place] [address] [place], [place] Hematocrit (Bld) [Volume fraction] 40.1 % Normal 36.0-46.0 [facility] Comment on above: Performed By: #### O LIGO, IGG INDEX #### [facility] [address] [place] [address] [place], [place] Hemoglobin (Bld) [Mass/Vol] 13.8 g/dL Normal 12.0-15.0 [facility] Comment on above: Performed By: #### O LIGO, IGG INDEX #### [facility] [address] [place] [address] Dr [place], [place] Lymphocytes (Bld) [#/Vol] 3.12 10*3/uL Normal 1.00-4.80 [facility] Comment on above: Performed By: #### O LIGO, IGG INDEX #### [facility] [address] [place] [address] [place], [place] Lymphocytes/100 WBC (Bld) 26.8 % Normal 24.0-44.0 [facility] Comment on above: Performed By: #### O LIGO, IGG INDEX #### [facility] [address] [place] [address] [place], [place] MCH (RBC) [Entitic mass] 30.4 pg Normal 26.0-34.0 [facility] Comment on above: Performed By: #### O LIGO, IGG INDEX #### [facility] [address] [place] [address] [place], [place] MCHC (RBC) [Mass/Vol] 34.5 g/dL Normal 32.0-35.9 [facility] Comment on above: Performed By: #### O LIGO, IGG INDEX #### [facility] [address] [place] [address] Dr [place], [place] MCV (RBC) [Entitic vol] 88 fL Normal 80-[address] [facility] Comment on above: Performed By: #### O LIGO, IGG INDEX #### [facility] [address] [place] [address] [place], [place] MONOCYTE DISTRIBUTION WIDTH 17 Normal <=20 The [facility] Comment on above: Performed By: #### O LIGO, IGG INDEX #### [facility] [address] [place] [address] [place], [place] Monocytes (Bld) [#/Vol] 0.51 10*3/uL Normal 0.20-1.00 The [facility] Comment on above: Performed By: #### O LIGO, IGG INDEX #### [facility] [address] [place] [address] [place], [place] Monocytes/100 WBC (Bld) 4.4 % Normal 2.0-11.0 [facility] Comment on above: Performed By: #### O LIGO, IGG INDEX #### [facility] [address] [place] [address] [place], [place] Neutrophils (Bld) [#/Vol] 7.90 10*3/uL Normal 1.50-8.00 [facility] Comment on above: Performed By: #### O LIGO, IGG INDEX #### [facility] [address] [place] [address] [place], [place] Neutrophils/100 WBC (Bld) 67.8 % Normal 31.0-76.0 [facility] Comment on above: Performed By: #### O LIGO, IGG INDEX #### [facility] [address] [place] [address] [place], [place] Platelet mean volume (Bld) [Entitic vol] 7.7 fL Normal 7.5-11.2 [facility] Comment on above: Performed By: #### O LIGO, IGG INDEX #### [facility] [address] [place] [address] [place], [place] Platelets (Bld) [#/Vol] 301 10*3/uL Normal 150-400 [facility] Comment on above: Performed By: #### O LIGO, IGG INDEX #### [facility] [address] [place] [address] [place], [place] RBC (Bld) [#/Vol] 4.55 10*6/uL Normal 4.00-5.20 [facility] Comment on above: Performed By: #### O CONNOR, IGG INDEX #### [facility] [address] [facility] [address] [place], [place] WBC (Bld) [#/Vol] 11.6 10*3/uL High 4.5-11.5 [facility] Comment on above: Performed By: #### O CONNOR, IGG INDEX #### [facility] [address] [place], [place] Consultson 03-17-2025 Maintenance Painter Apprentice Authentication Interface Message Text SP[facility] P Patient Name: Yuliet Dye Primary Care Physician: No primary care provider on file. 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 Michel for stat MRIs for progressive myelopathy symptoms. Pt states that she woke up on Feb 12 with numbness and tingling in her R hand that over the next few days spread up her wrist to her forearm, then started in her L hand spreading up to her forearm and then started in there R, then L feet and up her legs. She states that the start of the paresthesias was associated with low back pain and swelling of there ankles and fingers. She got a medrol dose pack from an urgent care that helped with the swelling and it did not return. She c/o some mild neck pain but not as severe as her back pain. Denies bowel / bladder incontinence, saddle anesthesia, rashes, sick contacts, insect bites, trauma, other past medical history, or taking any other medications besides the prednisone and a muscle relaxer that was recently prescribed as well. Per Dr. Michel's note she does have a heart murmur. Antiplatelet/Anticoa gulant: none PAST MEDICAL HISTORY: Medical History[1] PAST SURGICAL HISTORY: Surgical History[2] FAMILY HISTORY: Family History[3] SOCIAL HISTORY: Social History Occupational History Not on file Tobacco Use Smoking status: Some Days Types: Cigarettes Smokeless tobacco: Never Substance and Sexual Activity Alcohol use: Not on file Drug use: Not on file Sexual activity: Not on file MEDICATIONS: ALLERGIES: Allergies[4] COMPLETE REVIEW OF SYSTEMS: ROS 05/01 systems negative other than above LABS: CBC/PT/INR 03/17/2025 2:18 PM WBC 11.6 RBC 4.55 Hgb 13.8 Hct 40.1 MCV 88 RDW 13.1 Plt 301 Basic Metabolic Panel 03/17/2025 2:18 PM Na 141 K 3.8 Cl 106 CO2 24 Gap 15 Glu 93 BUN 9 Cr 0.74 Ca 9.6 PHYSICAL EXAM: Awake, alert, pleasant and cooperative Uppers: R Deltoids/Biceps/Tric eps/Wrist ext/grinding supervisor/interosseou s - 5/5 L Deltoids/Biceps/Tric eps/Wrist ext/grinding supervisor/interosseou s - 5/5 Evidence of well healed surgical scarring on hands bilat Lowers: R hip flexors / knee flex / ext /dorsi / plantar / EHL 5/5 L hip flexors / knee flex / ext /dorsi / plantar / EHL 5/5 +L Hoffmans (noted bilaterally Hoffmans in Dr. Michel's clinic), no clonus (clonus noted in Dr. 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 Michel for stat MRIs for progressive myelopathy symptoms: - will follow for STAT MRI C and T spine wo contrast Above plan was discussed with the (Chief) within 30 minutes of consult and discussed with the staff Dr. Michel. Split/Shared Documentation I approve the management plan for this patient and take responsibility for the plan as documented. Independent Interpretation of Tests Performed by Another Physician/PARISA: I personally performed, reviewed, and interpreted exam with findings of myelopathy. Zaida Nix PA-C Neurosurgery Service Pager [phone] [1] No past medical history on file. [2] No past surgical history on file. [3] No family history on file. [4] No Known Allergies Normal [facility] ED Provider Levy 03-17-20 Maintenance Painter Apprentice Authentication Interface Message Text EMERGENCY DEPARTMENT - VISIT NOTE HISTORY OF PRESENT ILLNESS ------ Chief Complaint Patient presents with Back symptoms/complaints Back pain radiating down legs x 3 weeks HPI 24 year old female here referred from orthopedic-spine Dr. Michel for MRI C-spine and T-spine. Patient notes over around 3-4 weeks having numbness first in right arm, then both legs and groin, and left arm. Now fairly constant. Can walk but mild weakness. No infectious symptoms. No recent travel. No history of similar. No recent change in diet. No JACOBSON, fevers, chills, vision changes. PAST HISTORY -- Pertinent Past History: Medical History[1] Problem List[2] Pertinent Social History: Social History[3] PHYSICAL EXAM --- BP 122/82 Pulse (!) 116 Temp 98.3 ???F (36.8 ???C) (Oral) Resp 18 SpO2 96% Physical Exam Constitutional nursing triage notes reviewed, vital signs reviewed, alert, awake and no acute distress HENT no rhinorrhea, posterior orpharynx symmetric and noninjected, no oropharynx exudates and no intraoral lesions Eyes pupils equal round and reactive to light, extraocular muscles intact, no discharge, nonicteric and noninjected Neck neck supple and non tender Lungs lungs clear, Heart Regular rate and rhythm, radial pulses 2+ symmetric Abdomen Soft, nondistended, Nontender, Extremities No edema and no calf tenderness. Neuro Alert normally oriented, Normal speech, CN Grossly intact, very mild symmetric lower extremity weakness, near global diminished sensation. Mild clonus lower extremities. Skin no rash or lesion, warm and dry Psych cooperative, quiet and normal affect MEDICAL DECISION MAKING and ED COURSE - Nursing triage and assessment notes reviewed and incorporated. Symptoms suggest myelopathy, unclear etiology, no clear triggers in history. Will check labs as well as MRI. D/W Spine, request call back after imaging. D/w spine after imaging in process, will review. Endorsed to Dr. Georges pending spine recommendations. Elmer Ashley MD [1] No past medical history on file. [2] There is no problem list on file for this patient. [3] Social History Tobacco Use Smoking status: Some Days Types: Cigarettes Smokeless tobacco: Never Normal [facility] ERYTHROCYTE SEDIMENTATION RA Zeinab 03-17-2025 ESR (Bld) [Velocity] 22 mm/h Normal <=30 [facility] Comment on above: Performed By: #### O LIGO, IGG INDEX #### [facility] [address] [facility] [place], [place] HIV 1 and 2 Ab and HIV 1 p24 Ag panel IAon 03-17-2025 HIV AG-AB SCREEN Non-Reactive Normal Non-Reactive [facility] Comment on above: Order Comment: Dominick arthur Agency Address Site ID: AMD [facility] Address: [address] [place] [address] [place], [place] Director: Carlo Duke M.D.,PhD Result Comment: No l aboratory evidence for HIV Infection. Negative result does not rule out acute HIV infection. If acute HIV infection is suspected, recommend ordering an HIV-1 RNA quanitification test. Performed By: #### O LIGO, IGG INDEX #### [facility] [address] [facility] [place], [place] LYME DISEASE AB WITH REFLEX TO BLOT (IGG, IGM)on 03-17-2025 LYME AB SCREEN <0.90 Normal [facility] Comment on above: Order Comment: Dominick arthur Agency Address Site ID: QPT Name: [facility] Address: [facility] [address] , [address] [place] [id number] Director: Kamlesh Guzmán MD Result Comment: Inde x Interpretation ----- < 0.90 Negative 0.90-1.09 Equivocal > 1.09 Positive As recommended by the Food and Drug Administration (FDA), all samples with positive or equivocal results in a Borrelia burgdorferi antibody screen will be tested using a blot method. Positive or equivocal screening test results should not be interpreted as truly positive until verified as such using a supplemental assay (e.g., B. burgdorferi blot). The screening test and/or blot for B. burgdorferi antibodies may be falsely negative in early stages of Lyme disease, including the period when erythema migrans is apparent. Performed By: #### L KIMMY Hinojosa ####[facility] [id number] [place], [place] MR C-SPINE W/Oon 03-17-2025 MR C-SPINE W/O EXAMINATION: MR C-SPINE W/O PRO 03/17/2025 06:18 PM CLINICAL HISTORY: weakness and numbness bilateral lower extremities > upper, myelopathy. ASSOCIATED DIAGNOSIS: weakness and numbness bilateral lower extremities > upper, myelopathy. ORDERING PROVIDER: ELMER ASHLEY [employer]NOLOGISTS NOTE: COMPARISON: None TECHNIQUE: Patient questionnaire was completed, and was reviewed by MRI personnel prior to the patient entering the scanner. Multiplanar, multisequence MR imaging of the cervical spine was performed without intravenous contrast. FINDINGS: Counting reference: Craniocervical junction. Anatomic variants: None. Alignment: Normal. Vertebral Body Height: Normal. Bone Marrow: Normal. Cord: STIR/T2 heterogenous hyperintensity at C5-6 with mild ventral cord deformity secondary to disc extrusion eccentric to the left. There is minimal cord expansion at this level. Mild ventral cord flattening at C3-4. Craniocervical Junction, Cervical Soft Tissues and Included Brain: Within normal limits. C2-C3: No significant stenosis. C3-C4: No significant spinal canal stenosis. No significant left and mild right neural foraminal stenosis secondary to a disc extrusion eccentric to the right. C4-C5: No significant stenosis. C5-C6: Mild spinal canal stenosis with contributions from the large disc extrusion eccentric to the left and posterior element hypertrophy. Severe bilateral neural foraminal stenosis with abutment of the exiting nerve root secondary to disc extrusion. C6-C7: No significant stenosis. C7-T1: No significant stenosis. IMPRESSION: 1. Heterogenous FLAIR/T2 hyperintensity spanning C5-C6 with minimal associated cord expansion. Differential diagnosis include neoplastic process, hemorrhage and less likely demyelinating process. Postcontrast imaging is recommended for further evaluation. 2. Moderate spinal canal stenosis with a large disc extrusion eccentric to the left at C5-6. There is moderate spinal canal and severe bilateral foraminal stenosis. MACRO: (-I1-) I have personally reviewed the images and agree with the resident's interpretation. Normal [facility] MR T-SPINE W/Oon 03-17-2025 MR T-SPINE W/O EXAMINATION: MR T-SPINE W/OPRO 03/17/2025 06:18 PM CLINICAL HISTORY: weakness and numbness bilateral lower extremities > upper, myelopathy. ASSOCIATED DIAGNOSIS: weakness and numbness bilateral lower extremities > upper, myelopathy. ORDERING PROVIDER: ELMER ASHLEY [employer] NOTE: COMPARISON: None TECHNIQUE: Patient questionnaire was completed and was reviewed by MRI personnel prior to the patient entering the scanner. Multiplanar, multisequence MR imaging of the thoracic spine was performed without intravenous contrast. FINDINGS: Alignment: Normal. Vertebral Body Height: Normal. Bone Marrow: No aggressive focal lesion or pathologic marrow infiltration. Cord: Mild anterior cord deformity at T1-T2: T2-T3, T3-T4, T4-T5, T10 and T11 Paraspinal Soft Tissues: Normal. Canal and Foramina: T2-T3: Bilateral paracentral disc protrusion with mild anterior cord deformity. No cord signal abnormality. T3-T4: Bilateral posterior projecting disc and osteophyte resulting in mild anterior cord deformity. No cord signal abnormality. T4-T5: Central disc protrusion and mild anterior cord deformity. No cord signal abnormality. T10-T11: Right central disc protrusion with mild anterior cord deformity. No cord signal abnormality. T11-T12: Right central disc protrusion with mild anterior cord deformity. No cord signal abnormality. IMPRESSION: Multilevel spondylosis with multilevel cord deformity. No cord signal abnormality. 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 Since 12feb2025 she has had progressive loss of function in her upper and lower extremities. She denies any visual changes denies any taste difference denies any headaches. She denies any insect bites, no time hiking recently. She has a history of significant neck arthritis from degenerative disc disease her providers have been following. 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 She denies any congenital heart defects but she does have a heart murmur. Significant bilateral upper extremity loss of function R worse than L. She denies any rapid progression of her neck pain. Denies fever chills, feeling sick. Denies any bowel or bladder symptoms. 7-10/10 neck pain VAS. For PMHx, PSHx, medications, allergies, SOCHx, ROS and FAMHx, please refer to the scanned New patient Questionnaire PHYSICAL EXAM: General: AXOX3, no acute distress. Lower extremities: She has difficulty rising from a seated position. Difficulty ambulating secondary to proximal leg weakness. She can not heel walk nor toe walk nor tandem walk. Difficulty getting on off the exam table. Globally weak in bilateral lower extremities though everything fires maybe 5- out of 5. DTRs are spastic in her knee jerk and ankle jerk and she has sustained clonus bilaterally. Full nontender range of motion bilateral hips knees and ankles. Upper extremities: Multiple incisions over her radial hands secondary to her congenital polydactyly. Appears to be 5/5 throughout but decreased light touch in a glove type distribution mid palms bilaterally. DTRs are hyperactive and equal in her biceps, triceps and brachioradialis; marked Pastora signs bilaterally. Full nontender range of motion bilateral shoulders elbows and wrists. Spine: Cervical spine range of motion is fairly full, nontender; negative Lhermitte's sign. INVESTIGATIONS: Standing lateral flex-ex cervical xrays performed today STAT MRI cervical performed today IMPRESSION: 24yo female with progressive myelopathy PLAN: Normal [facility] TSHon 03-17-2025 TSH 2.820 uIU/mL Normal 0.450-5.330 [facility] Comment on above: Result Comment: Refe anthony range for women as applicable: First Trimester: 0. 050 to 3.700 uIU/mL Second Trimester: 0. 310 to 4.350 uIU/mL Third Trimester: 0. 410 to 5.180 uIU/mL Performed By: #### O CONNOR, IGG INDEX #### [facility] [address] [place], [place] VITAMIN B12 (CYANOCOBALAMIN) on 03-17-2025 Cobalamin (Vitamin B12) [Mass/Vol] 366 pg/mL Normal 180-914 [facility] Comment on above: Order Comment: Dominick arthur Agency Address Site ID: AMD [facility] Address: [address] [place] [address] Dr [place], [place] Director: Carlo Duek M.D.,PhD Performed By: #### O CONNOR, IGG INDEX #### [facility] [address] [place], [place] Relevant diagnostic tests/la boratory data Narrativeon 03-12-2025 Fall risk assessment no [employer] Work Phone: MEDS REVIEW Documentation of current medications (procedure) [employer] Work Phone: MEDS REVIEWD Medications reviewed without changes [employer] Work Phone: MRI HX of the lumbar spine on 03/05/2025 at [facility] [employer] Work Phone: XRAY HX of the lumbar spine on 03/04/2025 at [facility] [employer] Work Phone: Relevant diagnostic tests/la boratory data Narrativeon 03-04-2025 Fall risk assessment no [employer] Work Phone: MEDS REVIEW [employer] Work Phone: MEDS REVIEWD Medications reviewed with changes [employer] Work Phone: Laboratory - Chemistry and C hemistry - challengeon 03-03-2025 Cobalamin (Vitamin B12) [Mass/Vol] 471 pg/mL Normal 232 - 1245 pg/mL [facility]; [facility] Work Phone: Folate [Mass/Vol] 6.6 ng/mL Normal [facility]; [facility] Work Phone: Laboratory - Hematology and Cell countson 03-03-2025 HbA1c (Bld) [Mass fraction] 5.5 % Normal 4.8 - 5.6 % [facility]; [facility] Work Phone: Bedside Glucoseon 02-27-2025 FINGERSTICK GLU 83 mg/dL Normal 74-106 [facility] Comment on above: Result Comment: OCTAVIA BRANDON OF PATIENT CARE PER NURSING PROTOCOL Performed By: #### L 501.080 ####[facility] [id number] [place], [address] Emergency Department Summary on 02-27-2025 Emergency Department Summary [facility] Medical Records Department [address] [place] [address] Emergency Department Summary 02/27/25 MR#: [id number] Acct: [id number] Name: YULIET DYE PHOEBE Rep #: [id number] : 2000 24 From: Collin Cloud DO PCP: Care Physician,No Primary Status:DEP ER Location: ED HPI History of Present Illness Chief Complaint: Neuro S/Sx Narrative Narrative: Pt is a 24-year-old female who is presenting to the ER today with and mother with similar complaints until last week when she was in the ER as well. Patient had a stroke evaluation last week and was discharged. Patient is having numbness and tingling and intermittent pain going from her neck down to both of her hands diffusely. Patient states in the morning she has a hard time using some of the fingers of her left and right hand, but it takes a while to work the pain and the range of motion onto both hands. Patient is also having some numbness and tingling and pain rating from her the right lower back down into her leg. Patient has no aphasia or dysphagia. Patient states she is having intermittent blurry vision, does wear contacts. Has not seen the eye doctor in a few years. Patient has no new acute signs of stroke at this time. Patient is following up with a chiropractor. Patient has not followed up with PCP. Mother at bedside, looking for neurology follow-up. Patient has no saddle seizure, chronic. No recent falls. No other acute complaints. No chest pain or shortness of breath. No mental health history. REVIEW OF SYSTEMS: Unless otherwise stated in this report the patient's positive and negative responses for review of systems for constitutional, eyes, ENT, cardiovascular, respiratory, gastrointestinal, neurological, , musculoskeletal, and integument systems and related systems to the presenting problem are either stated in the history of present illness or were not pertinent or were negative for the symptoms and/or complaints related to the presenting medical problem. Nurse's notes and vital signs reviewed. The patient is not hypoxic. General: Alert, no acute distress, patient resting comfortably Patient is not toxic or lethargic. Skin: warm, intact, no pallor noted Head: Normocephalic, atraumatic Eye: Normal conjunctiva, no double vision blurry vision loss of vision. Visual acuity within normal limits, slightly decreased in the left side. When testing PERRL and vision failed, patient has no deficits to her vision feels Ears, Nose, Throat: Right tympanic membrane clear, left tympanic membrane clear. No drainage or discharge noted. No pre or post auricular tenderness, erythema, or swelling noted. No rhinorrhea or congestion noted. Posterior oropharynx shows no erythema, tonsillar hypertrophy, exudate. the uvula is midline. no trismus or drooling is noted. Neck: No anterior/posterior lymphadenopathy noted. no erythema, no masses, no fluctuance or induration noted. No meningeal signs. Cardio: Regular Rate and Rhythm Respiratory: No acute distress, no rhonchi, wheezing or rales noted. No stridor or retractions are noted. Abdomen: Obese, no pulsatile mass, no flank pain bilateral., soft, nontender, no masses detected. No rebound, guarding, or rigidity noted. Neurological: Appropriate for age; NIH 0. Patient does have decreased pinprick and dull sensation to the right leg compared to left. Patient has equal sensation to both arms. Patient states she is having paresthesias to both arms. Patient is also having lumbar radiculopathy/sciati ca pain down her right leg. No signs of saddle anesthesia or cauda equina. Patient states his symptoms have been the similar symptoms over the past 7 to 10 days. Psychiatric: [facility] Medical History (Updated 02/27/25 @ 16:[address] Collin Cloud DO) Numbness Home Medications ???Medication ???Instructions ???Recorded ???Last Taken ???Type methylprednisolone 4 mg tablets in 4 mg PO UD ##1 02/27/25 Unknown Rx a dose pack Allergy/AdvReac Type Severity Reaction Status Date / Time No Known Allergies Allergy Verified 02/21/25 03:51 Social History Smoking Status: Current some day smoker tobacco type: e-cigarettes EXAM Physical Exam Const Vital Signs: 02/27/25 12:56 02/27/25 14:55 02/27/25 16:09 Temperature 98.7 F 98.4 F Temperature Source Oral Pulse Rate 111 H 90 88 Respiratory Rate 16 18 20 H Blood Pressure 141/89 H 102/64 107/66 Blood Pressure Mean 106 76 79 Pulse Ox 98 98 97 Oxygen Delivery Method Room Air MDM MDM MDM Narrative Medical decision making narrative: Lengthy discussion was had at bedside on her symptoms of cervical radiculopathy and paresthesias and lumbar radiculopathy paresthesias. Patient has no acute strokelike signs or (more content not included)... Normal [facility] deOrdered By: ED PROVIDER on 02-27-2025 Glucose [Mass/Vol] 83 mg/dL 74-[address] [facility] Comment on above: MANAGEMENT OF PATIEN T CARE PER NURSING PROTOCOL 12 Lead EKGon 02-21-2025 12 Lead EKG [facility] Cardiovascular Services [address] [place] [address] 12 Lead EKG 02/21/25 0419 MR#: [id number] Acct: [id number] Name: YULIET DYE PHOEBE Rep #: [id number] : 2000 24 From: Huyen Chowdhury MD Attending Dr: Status: DEP ER Ordering Dr: Matheus Santamaria MD Date: 02/21/25 Location: ED Sex: F C Admitted: Test Reason : DYSRHYTHMIA Blood Pressure : */* mmHG Vent. Rate : 98 BPM Atrial Rate : 98 BPM P-R Int : 166 ms QRS Dur : 90 ms QT Int : 344 ms P-R-T Axes : 74 -5 22 degrees QTcB Int : 439 ms Normal sinus rhythm Minimal voltage criteria for LVH, may be normal variant ( R in aVL ) Borderline ECG Confirmed by AARON HADLEY, DIA ([id number]), news copy editor SERGE DAVIS ([id number]) on 02/23/2025 6:32:42 AM Referred By: Confirmed By: DIA CHOWDHURY MD 02/23/25 0632 Date Huyen Chowdhury MD CC: Dr. Matheus Santamaria MD; No Primary Care Physician Signed Normal [facility] Absolute lymphocyte countOrd ered By: Matheus Santamaria on 02-21-2025 Lymphocytes Auto (Unsp spec) [#/Vol] 3.85 10*3/uL 0.83-4.51 [facility] Absolute neutrophil countOrd ered By: Matheus Santamaria on 02-21-2025 Neutrophils (Bld) [#/Vol] 5.1 10*3/uL 2.0-7.7 [facility] Anion gap in Serum or Plasma Ordered By: Matheus Santamaria on 02-21-2025 Anion gap [Moles/Vol] 13 mmol/L - [facility] Automated lymphocyte count a s percentage of total leukocytesOrdered By: Matheus Santamaria on 02-21-2025 Lymphocytes/100 WBC Auto (Unsp spec) 39.2 % [facility] BUN/creatinine ratioOrdered By: Matheus Santamaria on 02-21-2025 Urea nitrogen/Creatinine [Mass ratio] 17.1 mg/mg - [facility] Basic Metabolic Profile (BMP )on 02-21-2025 BUN/CRE 17.1 RATIO Normal 10-20 [facility] Comment on above: Performed By: #### L 501.5200, L100.0100, L500.2500 ####[facility] [address] [place], [address] Calcium [Mass/Vol] 9.3 mg/dL Normal 7.6-11.[address] [facility] Comment on above: Performed By: #### L 501.5200, L100.0100, L500.2500 ####[facility] [address] [place], [address] Chloride [Moles/Vol] 104 mmol/L Normal 98-108 [facility] Comment on above: Performed By: #### L 501.5200, L100.0100, L500.2500 ####[facility] [address] [place], [address] CO2 [Moles/Vol] 23.5 mmol/L Normal 21.0-32.0 [facility] Comment on above: Performed By: #### L 501.5200, L100.0100, L500.2500 ####[facility] [address] [place], [address] Creatinine [Mass/Vol] 0.70 mg/dL Normal 0.70-1.20 [facility] Comment on above: Performed By: #### L 501.5200, L100.0100, L500.2500 ####[facility] [address] [place], [address] ECRCL 145.08 ml/min Normal 50-250 [facility] Comment on above: Performed By: #### L 501.5200, L100.0100, L500.2500 ####[facility] [address] [place], [address] GAP 13 Normal 5-15 [facility] Comment on above: Performed By: #### L 501.5200, L100.0100, L500.2500 ####[facility] [address] [place], [address] GFR/1.73 sq M.predicted among non-blacks MDRD (S/P/Bld) [Vol rate/Area] 124 mL/min/{1.73_m2} Normal >60 [facility] Comment on above: Result Comment: mL/m in/1.73m2 CKD-EPI Creatinine Equation (2020) Performed By: #### L 501.5200, L100.0100, L500.2500 ####[facility] [address] [place], [address] Glucose [Mass/Vol] 122 mg/dL High 70-[address] [facility] Comment on above: Performed By: #### L 501.5200, L100.0100, L500.2500 ####[facility] [address] [place], [address] Potassium [Moles/Vol] 3.7 mmol/L Normal 3.3-5.1 [facility] Comment on above: Performed By: #### L 501.5200, L100.0100, L500.2500 ####[facility] [address] [place], [address] Sodium [Moles/Vol] 140 mmol/L Normal 133-[address] [facility] Comment on above: Performed By: #### L 501.5200, L100.0100, L500.2500 ####[facility] [address] [place], [address] Urea nitrogen [Mass/Vol] 12 mg/dL Normal 4-19 [facility] Comment on above: Performed By: #### L 501.5200, L100.0100, L500.2500 ####[facility] [address] [place], [address] Basophil percentageOrdered B y: Matheus Santamaria on 02-21-2025 Basophils/100 WBC (Bld) 0.5 % 0-1 [facility] Bilirubin Test strip Ql (U)O rdered By: Matheus Santamaria on 02-21-2025 Bilirubin Ql (U) Negative Negative [facility] Brain/Head without Contrasto n 02-21-2025 Brain/Head without Contrast [facility] Imaging Services [address] [place], [place] [address] Brain/Head without Contrast MR#: [id number] Acct: [id number] Name: YULIET DYE PHOEBE Rep #: [id number] : 2000 F 24 From: Tash quintero MD PCP: Care Physician,No Primary Status: REG ER Study: Brain/Head without Contrast Date of Exam: 09/12 Exam# [id number] Ordering Dr: Matheus Santamaria MD PROCEDURE: BRAIN/HEAD WITHOUT CONTRAST 02/21/2025 REASON FOR EXAM: SHAKING EPISODE, POSS SEIZURE; NUMBNESS RIGHT SIDE TECHNIQUE: Procedure Code: CTBR Modality: CT Procedure: BRAIN/HEAD WITHOUT CONTRAST Coronal and Sagittal reconstruction series were provided. One or more dose reduction techniques were used (e.g., Automated exposure control, adjustment of the mA and/or kV according to patient size, use of iterative reconstruction technique. RADIATION DOSE SUMMARY: CTDI Vol 44.99 mGy DLP :846.73 mGycm COMPARISON: none FINDINGS: The visualized brain parenchyma shows normal appearance. No focal parenchymal abnormalities are demonstrated. Dominique-white matter differentiation is maintained. Normal CT appearance of the posterior fossa structures. No intracerebral or extra-axial hemorrhage. No midline shifts or deformity. Normal size and configuration of the cerebral ventricles. No definite calvarial fractures. The osseous structures in the skull base are unremarkable. Paranasal sinuses are unremarkable. CT/Brain/Head without Contrast IMPRESSION: No intracerebral or extra-axial hemorrhage. No acute cerebrovascular insult. If clinical symptoms persist, further evaluation with MRI may be considered as clinically warranted. Unremarkable non-enhanced CT study for the brain. Reading [facility] CC: Dr. Matheus Santamaria MD; No Primary Care Physician Kiln Cleaner: Signed Normal [facility] CBC W/Diff, Automatedon 10-0 4-2024 Absolute Lymph 3.85 X10 3/uL Normal 0.83-4.51 [facility] Comment on above: Performed By: #### L 501.5200, L100.0100, L500.2500 #### [facility] Laboratory [address] [place], [address] Absolute Neut 5.1 X10 3/uL Normal 2.0-7.7 [facility] Comment on above: Performed By: #### L 501.5200, L100.0100, L500.2500 #### [facility] [address] [place], [address] Basophils/100 WBC (Bld) 0.5 % Normal 0-1 [facility] Comment on above: Performed By: #### L 501.5200, L100.0100, L500.2500 #### [facility] [address] [place], [address] Eosinophils/100 WBC (Bld) 1.0 % Normal 0-5 [facility] Comment on above: Performed By: #### L 501.5200, L100.0100, L500.2500 #### [facility] [address] [place], [address] Erythrocyte distribution width (RBC) [Ratio] 12.3 % Normal 11.6-14.6 [facility] Comment on above: Performed By: #### L 501.5200, L100.0100, L500.2500 #### [facility] [address] [place], [address] Hematocrit (Bld) [Volume fraction] 37.2 % Normal 37-47 [facility] Comment on above: Performed By: #### L 501.5200, L100.0100, L500.2500 #### [facility] [address] [place], [address] Hemoglobin (Bld) [Mass/Vol] 12.4 g/dL Normal 12.0-15.0 [facility] Comment on above: Performed By: #### L 501.5200, L100.0100, L500.2500 #### [facility] [address] [place], [address] IG% 0.300 Normal 0.0-0.9 [facility] Comment on above: Result Comment: IG% - Immature Granulocytes (promyelocytes, myelocytes and metamyelocytes) > 1% indicates that a LEFT SHIFT is Present. Performed By: #### L 501.5200, L100.0100, L500.2500 #### [facility] [address] [place], [address] Lymphocytes/100 WBC (Bld) 39.2 % Normal 19-41 [facility] Comment on above: Performed By: #### L 501.5200, L100.0100, L500.2500 #### [facility] [address] [place], [address] MCH (RBC) [Entitic mass] 29.5 pg Normal 27.0-32.0 [facility] Comment on above: Performed By: #### L 501.5200, L100.0100, L500.2500 #### [facility] [address] [place], [address] MCHC (RBC) [Mass/Vol] 33.3 g/dL Normal 32-36 [facility] Comment on above: Performed By: #### L 501.5200, L100.0100, L500.2500 #### [facility] [address] [place], [address] MCV (RBC) [Entitic vol] 88.6 fL Normal 81-99 [facility] Comment on above: Performed By: #### L 501.5200, L100.0100, L500.2500 #### [facility] [address] [place], [address] Monocytes/100 WBC (Bld) 7.4 % Normal 0-10 [facility] Comment on above: Performed By: #### L 501.5200, L100.0100, L500.2500 #### [facility] [address] [place], [address] Neutrophils/100 WBC (Bld) 51.6 % Normal 47-70 [facility] Comment on above: Performed By: #### L 501.5200, L100.0100, L500.2500 #### [facility] [address] [place], [address] Nucleated RBC (Bld) [#/Vol] 0 10*3/uL Normal 0-5 [facility] Comment on above: Performed By: #### L 501.5200, L100.0100, L500.2500 #### [facility] [address] [place], [address] Platelet mean volume (Bld) [Entitic vol] 9.6 fL Normal 6.2-12.0 [facility] Comment on above: Performed By: #### L 501.5200, L100.0100, L500.2500 #### [facility] [address] [place], [address] Platelets (Bld) [#/Vol] 305 10*3/uL Normal 150-450 [facility] Comment on above: Performed By: #### L 501.5200, L100.0100, L500.2500 #### [facility] [address] [place], [address] RBC (Bld) [#/Vol] 4.20 10*6/uL Normal 4.2-5.4 [facility] Comment on above: Performed By: #### L 501.5200, L100.0100, L500.2500 #### [facility] [address] [place], [address] RDW SD 39.8 fl Normal 35.1-43.9 [facility] Comment on above: Performed By: #### L 501.5200, L100.0100, L500.2500 #### [facility] [address] [place], [address] WBC (Bld) [#/Vol] 9.8 10*3/uL Normal 4.4-11.[address] [facility] Comment on above: Performed By: #### L 501.5200, L100.0100, L500.2500 #### [facility] [address] [place], [address] Carbon dioxide, total [Moles /volume] in Central venous bloodOrdered By: Matheus Santamaria on 02-21-2025 CO2 [Moles/Vol] 23.5 mmol/L 21.0-32.0 [facility] Chest PA and Lateralon 02-21 Chest PA and Lateral [facility] Imaging Services [address] [place] [address] Chest PA and Lateral MR#: [id number] Acct: [id number] Name: YULIET DYE PHOEBE Rep #: [id number] : 2000 F 24 From: Tash quintero MD PCP: Care Physician,No Primary Status: REG ER Study: Chest PA and Lateral Date of Exam: 02/21/25 Exam# [id number] Ordering Dr: Matheus Santamaria MD PROCEDURE: CHEST PA AND LATERAL 02/21/2025 REASON FOR EXAM: POSS FEVER TECHNIQUE: Procedure Code: RADCXR Modality: DX Procedure: CHEST PA AND LATERAL COMPARISON: None. FINDINGS: The lungs are expanded. There is no demonstrated parenchymal abnormality. There is no demonstrated pleural abnormality. Normal heart and pericardium. Normal mediastinum and rené. Normal visualized pulmonary arteries. Normal visualized aortic arch and descending thoracic aorta. Normal visualized thoracic spine. Normal visualized ribs, clavicles, and shoulders. There is no demonstrated abnormality of the visualized soft tissue structures of the upper abdomen. RAD/Chest PA and Lateral IMPRESSION: No evidence for acute abnormality. Reading Location[facility] [address] CC: Dr. Matheus Santamaria MD; No Primary Care Physician Kiln Cleaner: Signed Normal [facility] Chloride assayOrdered By: Ava Santamaria on 02-21-2025 Chloride [Moles/Vol] 104 mmol/L 98-108 [facility] Emergency Department Summary on 02-21-2025 Emergency Department Summary [facility] Medical Records Department [address] [place] [address] Emergency Department Summary 02/21/25 MR#: [id number] Acct: [id number] Name: YULIET DYE PHOEBE Rep #: [id number] : 2000 24 From: Matheus Santamaria MD PCP: Care Physician,No Primary Status:DEP ER Location: ED HPI History of Present Illness Chief Complaint: Numb/Ting Informant: patient Narrative Narrative: Patient is a 24-year-old female presenting with numbness in both arms and the right leg, along with a recent episode of shaking. - Numbness began last (8 days ago) in the right hand, described as a constant pins and needles sensation. - Spread to the left arm on Sunday and to the right leg last night. - Denies any resolution of numbness; able to use hands without dropping objects and ambulate without difficulty. - Reports an episode of shaking around 0300 (1 hr prior to arrival in ED), described as uncontrollable and lasting approximately 15 minutes; likened to chills but denies feeling sick. Was awake during this. No associated headache or vision problems. No changes in her numbness during this. - Denies chest pain, dyspnea, nausea, emesis, headaches, abdominal issues, visual changes, or eye strain. - No current prescription medications. PFSH PFSH Medical History no medical history Home Medications ???Medication ???Instructions ???Recorded ???Last Taken ???Type NK 02/21/25 Unknown History Allergy/AdvReac Type Severity Reaction Status Date / Time No Known Allergies Allergy Verified 02/21/25 03:51 Social History Smoking Status: Current some day smoker tobacco type: e-cigarettes ROS ROS ED Constitutional Constitutional ED: Denies chills or fever(s) Eyes Eyes: Denies blurry vision, change in vision or diplopia ENT ENT ED: Denies rhinorrhea or sore throat Cardiovascular Cardiovascular: Denies chest pain or palpitations Respiratory/Chest Respiratory/Chest: Denies cough or dyspnea Gastrointestinal Gastrointestinal: Denies abdominal pain, diarrhea, nausea or vomiting Genitourinary Genitourinary ED: Denies dysuria or hematuria Musculoskeletal Musculoskeletal: Denies back pain or neck pain Integumentary Denies abscess or rash Neurologic Neurologic: Reports paresthesias RUE, RLE and LUE and seizure-like activity; Denies headache(s) or weakness Psychiatric Psychiatric: Denies anxiety or suicidal thoughts EXAM Physical Exam Const Vital Signs: 02/21/25 03:49 02/21/25 05:49 02/21/25 06:52 Temperature 99.3 F H 98.1 F Temperature Source Oral Oral Pulse Rate 114 H 102 H 94 Respiratory Rate 16 16 16 Blood Pressure 147/81 H 116/98 H 130/72 H Blood Pressure Mean 103 104 91 Pulse Ox 99 100 94 Oxygen Delivery Method Room Air Room Air Room Air 02/21/25 07:09 Temperature 97.3 F L Temperature Source Pulse Rate 103 H Respiratory Rate 18 Blood Pressure 109/68 Blood Pressure Mean 81 Pulse Ox 99 Oxygen Delivery Method Positive well nourished and well developed General Appearance ED: well developed and NAD HEENT Reports moist mucous membranes normocephalic and atraumatic Eyes PERRL and EOMs intact bilaterally Eyes Narrative: No pathologic nystagmus Neck full ROM and supple Resp normal respiratory effort and clear to auscultation bilaterally Cardio regular rate, regular rhythm and no murmurs GI non-tender and non-distended Auscultation: normoactive bowel sounds Palpation: soft Back/Spine no CVA tenderness General Back: other FROM Extremity normal to inspection General Extremety ED: Negative for edema, pulses abnormal or tenderness General Extremity: Negative for edema or pulses abnormal Neuro oriented x3, CN's II-XII intact bilaterally and no sensory deficits noted Neuro Narrative: No gross sensory deficits, subjective decrease sensation both hands and right lower leg. Normal symmetric reflexes downgoing toes no clonus Normal vltziw-tg-xizl and xigl-wq-mqwz bilaterally Sensorium / Orientation: awake and alert Motor Exam: strength 5/5 throughout Psych mental status grossly normal Skin no rashes or lesions noted and no wounds MDM MDM MDM Narrative Medical decision making narrative: Assessment: The patient is a 24-year-old female with PMH of arthritis in her neck and heartburn presenting for progressive tingling/paresthesia s of both upper extremities and right lower extremity that began one week ago, accompanied by a single nocturnal episode of whole-body shaking lasting 15 minutes. Differential discussed includes metabolic derangements (e.g., abnormal blood sugar or calcium), seizure, panic attack, early multiple sclerosis, and other intracranial pathology. Non- contrast head C (more content not included)... Normal [facility] Eosinophil percentageOrdered By: Matheus Santamaria on 02-21-2025 Eosinophils/100 WBC (Bld) 1.0 % 0-5 [facility] Erythrocyte distribution wid th ratioOrdered By: Matheus Santamaria on 02-21-2025 Erythrocyte distribution width (RBC) [Ratio] 12.3 % 11.6-14.6 [facility] Erythrocyte distribution wid th standard deviationOrdered By: Matheus Santamaria on 02-21-2025 Erythrocyte distribution width (RBC) [Ratio] 39.8 fl 35.1-43.9 [facility] Glomerular filtration rate ( GFR) estimation/1.73 sq m using serum, plasma, or whole bOrdered By: Matheus Santamaria on 02-21-2025 GFR/1.73 sq M.predicted among non-blacks MDRD (S/P/Bld) [Vol rate/Area] 124 mL/min/{1.73_m2} >60 [facility] Comment on above: mL/min/1.73m2 CKD-EP I Creatinine Equation (2020) Hematocrit Auto (Bld) [Volum e fraction]Ordered By: Matheus Santamaria on 02-21-2025 Hematocrit (Bld) [Volume fraction] 37.2 % 37-47 [facility] Hemoglobin measurementOrdere d By: Matheus Santamaria on 02-21-2025 Hemoglobin (Bld) [Mass/Vol] 12.4 g/dL 12.0-15.0 [facility] Immature granulocytes/100 WB C Auto (Bld)Ordered By: Matheus Santamaria on 02-21-2025 Immature granulocytes/100 WBC (Bld) 0.300 % 0.0-0.9 [facility] Comment on above: IG% - Immature Granu locytes (promyelocytes, myelocytes and metamyelocytes) > 1% indicates that a LEFT SHIFT is Present. Ketones Test strip Ql (U)Ord ered By: Matheus Santamaria on 02-21-2025 Ketones Ql (U) Negative Negative [facility] Lactic Acidon 02-21-2025 Lactate [Moles/Vol] 1.3 mmol/L Normal 0.0-2.0 [facility] Comment on above: Order Comment: Y Performed By: #### L 503.6005 ####[facility] [id number] [place], [place], [address] Lactic acid measurementOrder ed By: Matheus Santamaria on 02-21-2025 Lactate [Moles/Vol] 1.3 mmol/L 0.0-2.0 [facility] MCV (mean corpuscular volume ) determinationOrdered By: Matheus Santamaria on 02-21-2025 MCV (RBC) [Entitic vol] 88.6 fL 81-99 [facility] Magnesiumon 02-21-2025 Magnesium [Mass/Vol] 2.2 mg/dL Normal 1.5-2.2 [facility] Comment on above: Performed By: #### L 501.5200, L100.0100, L500.2500 ####[facility] [id number] [place], [place], [address] Magnesium measurement (mass/ volume)Ordered By: Matheus Santamaria on 02-21-2025 Magnesium (Unsp spec) [Mass/Vol] 2.2 mg/dL 1.5-2.2 [facility] Mean corpuscular hemoglobin (MCH) determinationOrdered By: Matheus Santamaria on 02-21-2025 MCH (RBC) [Entitic mass] 29.5 pg 27.0-32.0 [facility] Mean corpuscular hemoglobin concentration (MCHC) determinationOrdered By: Matheus Santamaria on 02-21-2025 MCHC (RBC) [Mass/Vol] 33.3 g/dL 32-36 [facility] Mean platelet volume determi nationOrdered By: Matheus Santamaria on 02-21-2025 Platelet mean volume (Bld) [Entitic vol] 9.6 fL 6.2-12.0 [facility] Microscopic analysis of urin e for red blood cells (RBC)Ordered By: Matheus Santamaria on 02-21-2025 Microscopic analysis of urine for red blood cells (RBC) 0 SEEN /hpf 0-5 [facility] Monocyte percentageOrdered B y: Matheus Santamaria on 02-21-2025 Monocytes/100 WBC (Bld) 7.4 % 0-10 [facility] Mucus LM Ql (Urine sed)Order ed By: Matheus Santamaria on 02-21-2025 Mucus Ql (Urine sed) 0 SEEN /hpf [facility] Neutrophil percentageOrdered By: Matheus Santamaria on 02-21-2025 Neutrophils/100 WBC (Bld) 51.6 % 47-70 [facility] Nitrite Test strip Ql (U)Ord ered By: Matheus Santamaria on 02-21-2025 Nitrite Ql (U) Negative Negative [facility] Nucleated red blood cell per centageOrdered By: Matheus Santamaria on 02-21-2025 Nucleated RBC/100 WBC (Bld) [Ratio] 0 % 0-5 [facility] Platelet countOrdered By: Ava Santamaria on 02-21-2025 Platelets (Bld) [#/Vol] 305 10*3/uL 150-450 [facility] Potassium measurement (mass/ volume)Ordered By: Matheus Santamaria on 02-21-2025 Potassium (Unsp spec) [Mass/Vol] 3.7 mmol/L 3.3-5.1 [facility] Protein Test strip Ql (U)Ord ered By: Matheus Santamaria on 02-21-2025 Protein Ql (U) 15 mg/dl High Negative [facility] RBC Auto (Bld) [#/Vol]Ordere d By: Matheus Santamaria on 02-21-2025 RBC (Bld) [#/Vol] 4.20 10*6/uL 4.2-5.4 [facility] Serum creatinine measurement (mass/volume)Ordered By: Matheus Santamaria on 02-21-2025 Creatinine [Mass/Vol] 0.70 mg/dL 0.70-1.20 [facility] Serum glucose measurement (m ass/volume)Ordered By: Matheus Santamaria on 02-21-2025 Glucose [Mass/Vol] 122 mg/dL High 70-[address] [facility] Serum or plasma calcium leandra urement (mass/volume)Ordered By: Matheus Santamaria on 02-21-2025 Calcium [Mass/Vol] 9.3 mg/dL 7.6-11.[address] [facility] Serum or plasma urea nitroge n measurement (mass/volume)Ordered By: Matheus Santamaria on 02-21-2025 Urea nitrogen [Mass/Vol] 12 mg/dL 4-19 [facility] Sodium levelOrdered By: Lennox Santamaria on 02-21-2025 Sodium [Moles/Vol] 140 mmol/L 133-[address] [facility] Squamous epithelial cells de tection in urine sediment by light microscopyOrdered By: Matheus Santamaria on 02-21-2025 Epithelial cells.squamous LM Ql (Urine sed) 0-5 SEEN /hpf - [facility] Urinalysis, Completeon 02-21 EPI,SQUAMOUS 0-5 SEEN Normal 09-27 [facility] Comment on above: Order Comment: CARLOS ENRIQUE TER SPECIMEN Performed By: #### L 400.0001 #### [facility] [address] [place], [address] BACTERIA 0 SEEN Normal None Seen [facility] Comment on above: Order Comment: CARLOS ENRIQUE TER SPECIMEN Performed By: #### L 400.0001 #### [facility] [address] [place], [address] Mucus Ql (Urine sed) 0 SEEN Normal [facility] Comment on above: Order Comment: CARLOS ENRIQUE TER SPECIMEN Performed By: #### L 400.0001 #### [facility] [address] [place], [address] RBC 0 SEEN Normal 0-5 [facility] Comment on above: Order Comment: CARLOS ENRIQUE TER SPECIMEN Performed By: #### L [id number] #### [facility] [address] [place], [place], [address] WBC 0 SEEN Normal 0-5 [facility] Comment on above: Order Comment: CARLOS ENRIQUE DONALDSON SPECIMEN Performed By: #### L [id number] #### [facility] [address] [place], [place], [address] Urine clarityOrdered By: Benson Santamaria on 02-21-2025 Clarity (U) Clear Clear [facility] Urine color determinationOrd ered By: Matheus Santamaria on 02-21-2025 Color (U) Yellow Yellow [facility] Urine glucose detectionOrder ed By: Matheus Santamaria on 02-21-2025 Glucose Ql (U) Normal mg/dl Normal [facility] Urine leukocyte esterase det ection by dipstickOrdered By: Matheus Santamaria on 02-21-2025 Leukocyte esterase Test strip Ql (U) Negative Negative [facility] Urine pHOrdered By: Matheus Santamaria on 02-21-2025 pH (U) 6.0 [pH] 5.0 - 8.0 [facility] Urine sediment bacteria coun t by microscopy (number/high power field)Ordered By: Matheus Santamaria on 02-21-2025 Bacteria LM.HPF (Urine sed) [#/Area] 0 /[HPF] None Seen [facility] Urine specific gravity measu rementOrdered By: Matheus Santamaria on 02-21-2025 Specific gravity (U) [Rel density] 1.020 1.002-1.030 [facility] Urine urobilinogen measureme ntOrdered By: Matheus Santamaria on 02-21-2025 Urobilinogen Ql (U) Normal mg/dl Normal [facility] White blood cell (WBC) count Ordered By: Matheus Santamaria on 02-21-2025 WBC (Bld) [#/Vol] 9.8 10*3/uL 4.4-11.[address] [facility] White blood cell countOrdere d By: Matheus Santamaria on 02-21-2025 White blood cell count 0 SEEN /hpf 0-5 [facility] Vital Signs Date Time Vital Sign Value Performing Clinician Facility 03-12-2025 08:20-0400 Body height 165 cm Nieves Prescott MD Work Phone: [facility] 03-12-2025 08:20-0400 Body height 165.1 cm Nieves Prescott MD Work Phone: [facility] 03-12-2025 08:20-0400 Body mass index (BMI) [Ratio] 35.74 kg/m2 Nieves Prescott MD Work Phone: [facility] 03-12-2025 08:20-0400 Body weight 97 kg Nieves Prescott MD Work Phone: [facility] 03-12-2025 08:20-0400 Body weight 97.07 kg Nieves Prescott MD Work Phone: [facility] 03-12-2025 08:20-0400 BP SITE #1 Nieves Prescott MD Work Phone: [facility] 03-12-2025 08:20-0400 Diastolic blood pressure 80 mm[Hg] Nieves Prescott MD Work Phone: [facility] 03-12-2025 08:20-0400 Heart rate 97 /min Nieves Prescott MD Work Phone: [facility] 03-12-2025 08:20-0400 HGHTCHNVIS Nieves Prescott MD Work Phone: [facility] 03-12-2025 08:20-0400 Systolic blood pressure 117 mm[Hg] Nieves Prescott MD Work Phone: [facility] 03-12-2025 08:20-0400 VITALSDONE Nieves Prescott MD Work Phone: [facility] 03-04-2025 11:59-0400 Body height 166 cm Stephany SINHA [facility] 03-04-2025 11:59-0400 Body height 166.37 cm [facility]phany [facility] 03-04-2025 11:59-0400 Body mass index (BMI) [Ratio] 35.2 kg/m2 Stephany Gregory [facility] 03-04-2025 11:59-0400 Body weight 97 kg Stephany Gregory [facility] 03-04-2025 11:59-0400 Body weight 97.07 kg Stephany Gregory [facility] 03-04-2025 11:59-0400 BP SITE #1 Stephany Gregory [facility] 03-04-2025 11:59-0400 Diastolic blood pressure 73 mm[Hg] Stephany Gregory [facility] 03-04-2025 11:59-0400 Heart rate 98 /min Stephany Gregory [facility] 03-04-2025 11:59-0400 HGHTCHNVIS Stephany Bri [facility] 03-04-2025 11:59-0400 Systolic blood pressure 105 mm[Hg] Stephany Gregory [facility] 03-04-2025 11:59-0400 VITALSDONE Stephanykyree Gregory [facility] 03-03-2025 15:39-0400 Body height 162.56 cm Bryan SCOTT MD Work Phone: [facility] 03-03-2025 15:39-0400 Body mass index (BMI) [Ratio] 37.25 kg/m2 Bryan SCOTT MD Work Phone: [facility] 03-03-2025 15:39-0400 Body surface area Derived from formula 2.03 m2 Bryan SCOTT MD Work Phone: [facility] [employer] [facility].; [employer] [facility] 03-03-2025 15:39-0400 Body weight 98.43 kg Bryan SCOTT MD Work Phone: [facility] [employer] [facility].; [email or web address] [facility] 03-03-2025 15:39-0400 Diastolic blood pressure 86 mm[Hg] Bryan SCOTT MD Work Phone: [facility] [employer] [facility] Department[facility].; [employer] [facility] Comment on above: Patient Position: Sitting; Cuff Location : Left Arm; Cuff Size: Large 03-03-2025 15:39-0400 Heart rate 88 /min Bryan SCOTT MD Work Phone: [facility] [employer] [facility].; [email or web address] [facility] [employer]. Comment on above: Pattern: Regular 03-03-2025 15:39-0400 Systolic blood pressure 118 mm[Hg] Bryan SCOTT MD Work Phone: [facility] [employer] [facility].; [employer] [facility] [employer] [facility] Department[facility]. Comment on above: Patient Position: Sitting; Cuff Location : Left Arm; Cuff Size: Large 02-27-2025 16:09-0400 Body temperature 98.4 [degF] Dr. Matheus Santamaria MD Work Phone: [facility] 02-27-2025 16:09-0400 Diastolic blood pressure 66 mm[Hg] Dr. Matheus Santamaria MD Work Phone: [facility] 02-27-2025 16:09-0400 Heart rate 88 /min Dr. Matheus Santamaria MD Work Phone: [facility] 02-27-2025 16:09-0400 Respiratory rate 20 /min Dr. Matheus Santamaria MD Work Phone: [facility] 02-27-2025 16:09-0400 SaO2% (BldA) [Mass fraction] 97 % Dr. Matheus Santamaria MD Work Phone: 2(756)383-777576 [place] [address] 02-27-2025 16:09-0400 Systolic blood pressure 107 mm[Hg] Dr. Matheus Santamaria MD Work Phone: 2(381)802-531176 [place] [address] 02-27-2025 14:05-0400 Body height 165.[address] Matheus Santamaria MD Work Phone: 0(024)570-814776 [place] [address] 02-27-2025 14:05-0400 Body mass index (BMI) [Ratio] 36.2 kg/m2 Dr. Matheus Santamaria MD Work Phone: 7(423)539-311976 [place] [address] 02-27-2025 14:05-0400 Body weight 98.[address] Matheus Santamaria MD Work Phone: 4(011)469-077676 [place] [address] 02-21-2025 07:09-0400 Body temperature 97.3 [degF] Dr. Matheus Santamaria MD Work Phone: 5(291)111-283476 [place] [address] 02-21-2025 07:09-0400 Diastolic blood pressure 68 mm[Hg] Dr. Matheus Santamaria MD Work Phone: 7(492)316-054576 [place] [address] 02-21-2025 07:09-0400 Heart rate 103 /min Dr. Matheus Santamaria MD Work Phone: 3(497)149-006476 [place] [address] 02-21-2025 07:09-0400 Respiratory rate 18 /min Dr. Matheus Santamaria MD Work Phone: 2(881)839-051676 [place] [address] 02-21-2025 07:09-0400 SaO2% (BldA) [Mass fraction] 99 % Dr. Matheus Santamaria MD Work Phone: 1(291)885-364576 [place] [address] 02-21-2025 07:09-0400 Systolic blood pressure 109 mm[Hg] Dr. Matheus Santamaria MD Work Phone: 3(260)162-867576 [place] [address] 02-21-2025 03:49-0400 Body height 165.[address] Matheus Santamaria MD Work Phone: 4(696)988-273476 [place] [address] 02-21-2025 03:49-0400 Body mass index (BMI) [Ratio] 36.6 kg/m2 Dr. Matheus Santamaria MD Work Phone: [facility] 02-21-2025 03:49-0400 Body weight 99.[address] Matheus Santamaria MD Work Phone: [facility] 04-10-2017 10:59-0500 Body height 162.56 cm BAYLEE CHONG RN [facility] [employer] [facility] [facility] [place] [facility] DepartmentT[facility], [employer] 04-10-2017 10:59-0500 Body mass index (BMI) [Percentile] Per age and sex 97 % BAYLEE GRATE MARILUZ [facility] [employer], [employer] [facility], [employer] 04-10-2017 10:59-0500 Body mass index (BMI) [Ratio] 31.93 kg/m2 BAYLEE GRATE MARILUZ [facility] [employer] [facility], [employer] [facility]. 04-10-2017 10:59-0500 Body surface area Derived from formula 1.9 m2 BAYLEE CHONG RN [facility] [employer] [facility], [employer] [facility] [employer] [place] [facility] DepartmentFan[employer]. 04-10-2017 10:59-0500 Body weight 84.37 kg BAYLEE CHONG RN [facility] [employer] [facility], [employer] [facility] [employer] [facility] [facility] DepartmentFan[employer]. 04-10-2017 10:59-0500 Diastolic blood pressure 79 mm[Hg] BAYLEE GRATE MARILUZ [facility] [employer] [facility], [employer] [facility] [employer] [facility] [facility] DepartmentFan[employer]. Comment on above: Patient Position: Sitting; Cuff Location : Left Arm; Cuff Size: Standard 04-10-2017 10:59-0500 Heart rate 109 /min BAYLEE CHONG RN [facility] [employer] [facility] [facility] [employer] [facility] [facility] DepartmentFan[employer]. Comment on above: Pattern: Regular 04-10-2017 10:59-0500 Systolic blood pressure 115 mm[Hg] BAYLEE GRATE MARILUZ [facility] DepartmentFan[facility].; [facility] [employer] [place] [facility] DepartmentFanMob. Comment on above: Patient Position: Sitting; Cuff Location : Left Arm; Cuff Size: Standard 05-20-2015 13:04-0500 Body height 162.56 cm Bryan SCOTT MD Work Phone: [employer]; [employer]. 05-20-2015 13:04-0500 Body mass index (BMI) [Percentile] Per age and sex 96 % Bryan SCOTT MD Work Phone: [employer]; [employer]. 05-20-2015 13:04-0500 Body mass index (BMI) [Ratio] 28.67 kg/m2 Bryan SCOTT MD Work Phone: [employer]; [employer]. 05-20-2015 13:04-0500 Body surface area Derived from formula 1.81 m2 Bryan SCOTT MD Work Phone: [employer]; [employer] 05-20-2015 13:04-0500 Body temperature 97.4 [degF] Bryan SCOTT MD Work Phone: [employer]; [employer]. Comment on above: Method: Oral 05-20-2015 13:04-0500 Body weight 75.75 kg Bryan SCOTT MD Work Phone: [employer]; [employer]. 05-20-2015 13:04-0500 Diastolic blood pressure 77 mm[Hg] Bryan SCOTT MD Work Phone: [employer]; [employer]. Comment on above: Patient Position: Sitting; Cuff Location : Left Arm; Cuff Size: Standard 05-20-2015 13:04-0500 Heart rate 105 /min Bryan SCOTT MD Work Phone: [employer]; [employer] Comment on above: Pattern: Regular 05-20-2015 13:04-0500 Systolic blood pressure 114 mm[Hg] Bryan SCOTT MD Work Phone: [employer]; [facility]. Comment on above: Patient Position: Sitting; Cuff Location : Left Arm; Cuff Size: Standard 09-19-2012 11:09-0400 Body height 158.75 cm KARISHMAAmelia Sinha DIPTI [facility]Los [facility] [employer] [facility], [employer] [facility] [employer], [employer] 09-19-2012 11:09-0400 Body mass index (BMI) [Percentile] Per age and sex 90 % [facility] Sin[facility] RESENDEZ [facility], [employer] [facility].; [facility], [facility]. 09-19-2012 11:09-0400 Body mass index (BMI) [Ratio] 23.4 kg/m2 [facility] Sinha [facility], [employer] [facility].; [facility] Hospital[facility], [employer] [facility]. 09-19-2012 11:09-0400 Body surface area Derived from formula 1.[address] [facility] Sinha [facility], [employer] [facility].; [facility] Hospital[facility], [employer] [facility]. 09-19-2012 11:09-0400 Body temperature 98.2 [degF] CARI Sinha DIPTI BlanchardKaiser [facility] merlin [facility] [facility] DepartmentFan[employer].; [facility] [employer] [facility], [employer]. Comment on above: Method: Oral 09-19-2012 11:090400 Body weight 58.97 kg KARISHMAAmelia RESENDEZ [facility] [employer] [facility] [facility] DepartmentFan[employer].; [facility] [employer] [facility], [employer] 09-19-2012 11:09-0400 Diastolic blood pressure 80 mm[Hg] KARISHMAAmelia Sinha RESENDEZ [facility] [employer] [facility] [facility] DepartmentT[employer], [employer] [facility].; [facility] Hospital[facility], [employer] Comment on above: Patient Position: Sitting; Cuff Location : Left Arm; Cuff Size: Standard 09-19-2012 11:09-0400 Heart rate 114 /min KARISHMAAmelia RESENDEZ [facility] [employer] [facility], [employer].; [facility] [facility], [employer]. Comment on above: Pattern: Regular 09-19-2012 11:09-0400 Systolic blood pressure 117 mm[Hg] [facility] [place] [facility] DepartmentTapshot, Makers of V[employer] [facility].; [facility] [place] [facility], [employer]. Comment on above: Patient Position: Sitting; Cuff Location : Left Arm; Cuff Size: Standard 04-16-2012 13:04-0500 Body height 158.75 cm Bryan SCOTT MD Work Phone: bttn; [employer]. 04-16-2012 13:04-0500 Body mass index (BMI) [Percentile] Per age and sex 85 % Bryan SCOTT MD Work Phone: bttn; [employer]. 04-16-2012 13:04-0500 Body mass index (BMI) [Ratio] 21.6 kg/m2 Bryan SCOTT MD Work Phone: bttn; [email or web address] [facility]. 04-16-2012 13:04-0500 Body surface area Derived from formula 1.55 m2 Bryan SCOTT MD Work Phone: bttn; [employer]. 04-16-2012 13:04-0500 Body temperature 98.7 [degF] Bryan SCOTT MD Work Phone: bttn; [employer]. Comment on above: Method: Oral 04-16-2012 13:04-0500 Body weight 54.43 kg Bryan SCOTT MD Work Phone: bttn; [email or web address] [facility]. 04-16-2012 13:04-0500 Diastolic blood pressure 78 mm[Hg] Bryan SCOTT MD Work Phone: bttn; [employer]. Comment on above: Patient Position: Sitting; Cuff Location : Left Arm; Cuff Size: Large 04-16-2012 13:04-0500 Heart rate 123 /min Bryan SCOTT MD Work Phone: bttn; [employer]. Comment on above: Pattern: Regular 04-16-2012 13:04-0500 Systolic blood pressure 120 mm[Hg] Bryan SCOTT MD Work Phone: bttn; [employer]. Comment on above: Patient Position: Sitting; Cuff Location : Left Arm; Cuff Size: Large 05-08-2011 11:34-0500 Body height 149.86 cm Bryan SCOTT MD Work Phone: [employer]. 05-08-2011 11:34-0500 Body mass index (BMI) [Percentile] Per age and sex 85 % Bryan SCOTT MD Work Phone: bttn; [email or web address] [facility] [employer]. 05-08-2011 11:34-0500 Body mass index (BMI) [Ratio] 20.8 kg/m2 Bryan SCOTT MD Work Phone: bttn; [email or web address] [facility] [employer]. 05-08-2011 11:34-0500 Body surface area Derived from formula 1.39 m2 Bryan SCOTT MD Work Phone: bttn; [employer]. 05-08-2011 11:34-0500 Body temperature 97.1 [degF] Bryan SCOTT MD Work Phone: bttn; [employer]. Comment on above: Method: Oral 05-08-2011 11:34-0500 Body weight 46.72 kg Bryan SCOTT MD Work Phone: [employer].; [employer]. 05-08-2011 11:34-0500 Diastolic blood pressure 60 mm[Hg] Bryan SCOTT MD Work Phone: bttn; [employer]. Comment on above: Patient Position: Sitting; Cuff Location : Left Arm; Cuff Size: Large 05-08-2011 11:34-0500 Systolic blood pressure 116 mm[Hg] Bryan SCOTT MD Work Phone: [employer] [place] [facility] DepartmentMonkeyFind; [email or web address] [facility] [place] [facility] DepartmentFanMob. Comment on above: Patient Position: Sitting; Cuff Location : Left Arm; Cuff Size: Large 06-15-2010 15:39-0500 Body height 144.78 cm Bryan SCOTT MD Work Phone: [employer] [place] [facility] DepartmentMonkeyFind; [email or web address] [facility] [place] [facility] DepartmentFanMob. 06-15-2010 15:39-0500 Body mass index (BMI) [Percentile] Per age and sex 83 % Bryan SCOTT MD Work Phone: [facility] [place] [facility] DepartmentMonkeyFind; [employer] [facility] [place] [facility] DepartmentFanMob. 06-15-2010 15:39-0500 Body mass index (BMI) [Ratio] 19.69 kg/m2 Bryan SCOTT MD Work Phone: [employer] [place] [facility] DepartmentMonkeyFind; [email or web address] [facility] [place] [facility] DepartmentFanMob. 06-15-2010 15:39-0500 Body surface area Derived from formula 1.29 m2 Bryan SCOTT MD Work Phone: [employer]le[employer] [place] [facility] DepartmentMonkeyFind; [email or web address] [facility] [place] [facility] DepartmentFanMob. 06-15-2010 15:39-0500 Body temperature 98.4 [degF] Bryan SCOTT MD Work Phone: [facility] [place] [facility] DepartmentMonkeyFind; [email or web address] [facility]. Comment on above: Method: Oral 06-15-2010 15:39-0500 Body weight 41.28 kg Bryan SCOTT MD Work Phone: bttn; [email or web address] [facility]. 06-15-2010 15:39-0500 Diastolic blood pressure 74 mm[Hg] Bryan SCOTT MD Work Phone: [employer]; [email or web address] [facility] [employer]. Comment on above: Patient Position: Sitting; Cuff Location : Left Arm; Cuff Size: Large 06-15-2010 15:39-0500 Heart rate 125 /min Bryan SCOTT MD Work Phone: [employer].; [employer]. Comment on above: Pattern: Regular 06-15-2010 15:39-0500 Systolic blood pressure 113 mm[Hg] Bryan SCOTT MD Work Phone: [employer] [place] [facility] DepartmentFanMob.; [employer]. Comment on above: Patient Position: Sitting; Cuff Location : Left Arm; Cuff Size: Large 05-18-2010 16:40-0500 Body height 142.24 cm Bryan SCOTT MD Work Phone: [email or web address] [facility]. 05-18-2010 16:40-0500 Body mass index (BMI) [Percentile] Per age and sex 85 % Bryan SCOTT MD Work Phone: [employer].; [email or web address] [facility]. 05-18-2010 16:40-0500 Body mass index (BMI) [Ratio] 19.95 kg/m2 Bryan SCOTT MD Work Phone: [email or web address] [facility]. 05-18-2010 16:40-0500 Body surface area Derived from formula 1.26 m2 Bryan SCOTT MD Work Phone: bttn; [email or web address] [facility]. 05-18-2010 16:40-0500 Body temperature 98.5 [degF] Bryan SCOTT MD Work Phone: [employer].; [employer]. Comment on above: Method: Oral 05-18-2010 16:40-0500 Body weight 40.37 kg Bryan SCOTT MD Work Phone: [employer].; [employer]. 05-18-2010 16:40-0500 Diastolic blood pressure 78 mm[Hg] Bryan SCOTT MD Work Phone: [employer] [place] [facility] DepartmentFanMob.; [employer] [facility] [place] [facility] DepartmentFanMob. Comment on above: Patient Position: Sitting; Cuff Location : Right Arm; Cuff Size: Standard 05-18-2010 16:40-0500 Heart rate 127 /min Bryan SCOTT MD Work Phone: [facility] HospitalMadhouse [facility].; [email or web address] [facility]. Comment on above: Pattern: Regular 05-18-2010 16:40-0500 Systolic blood pressure 131 mm[Hg] Bryan SCOTT MD Work Phone: [email or web address] [facility]. Comment on above: Patient Position: Sitting; Cuff Location : Right Arm; Cuff Size: Standard Encounters Encounter Date Encounter Type Care Provider Facility Start: 03-26-2025 End: 03-26-2025 [facility] Start: 03-23-2025 ambulatory [facility] Start: 03-23-2025 End: 03-24-2025 ambulatory FLORIDALMA VILLELA [facility] Start: 03-23-2025 End: 03-23-2025 ambulatory UNKNOWN PROVIDER [facility] Start: 03-20-2025 End: 03-20-2025 Emergency department patient visit Jasmina Arroyo Facility:[facility] Start: 03-19-2025 Visit out of hours Nieves Armijo MD Work Phone: [employer] [facility] Work Phone: Start: 03-17-2025 End: 03-18-2025 Emergency department patient visit [facility]ER [facility] Start: 03-17-2025 End: 03-17-2025 ambulatory GOOD MICHEL [facility] Start: 03-17-2025 Emergency department patient visit UNKNOWN PROVIDER Facility:[facility] Start: 03-12-2025 In-person encounter Nieves herman MD Work Phone: [facility] Work Phone: Start: 03-06-2025 End: 03-06-2025 Historical Summary Bryan SCOTT MD Work Phone: [facility] bttn Start: 03-06-2025 End: 03-06-2025 Results Review Bryan SCOTT MD Work Phone: [facility] bttn Start: 03-04-2025 Visit out of hours Stephany Gregory APRN [employer] Work Phone: Start: 03-04-2025 In-person encounter Stephany Gregory APR N-Doormen. [facility] Work Phone: Start: 03-03-2025 End: 03-03-2025 Office outpatient visit 15 minutes Bryan SCOTT MD Work Phone: [employer] [facility] Start: 03-03-2025 Follow-up encounter Bryan BLACK MD Work Phone: [employer] Start: 02-27-2025 End: 02-27-2025 Emergency department patient visit Dr. Collin Cloud DO -Emergency Department Work Phone: Start: 02-21-2025 End: 02-21-2025 Emergency department patient visit Dr. Matheus Santamaria MD Work Phone: -Emergency Department Work Phone: Start: 04-10-2017 End: 04-10-2017 Office outpatient visit 25 minutes Bryan SCOTT MD Work Phone: [facility] [employer] Start: 05-20-2015 End: 05-20-2015 Office outpatient visit 10 minutes Bryan SCOTT MD Work Phone: [employer] Start: 02-05-2013 End: 02-05-2013 Medication Refill/Order Bryan SCOTT MD Work Phone: [employer] Start: 09-19-2012 End: 09-19-2012 Patient encounter procedure Bryna SCOTT MD Work Phone: [facility] [place] [facility] DepartmentMonkeyFind Start: 04-16-2012 End: 04-16-2012 Patient encounter procedure Bryan SCOTT MD Work Phone: [email or web address] [facility] Start: 05-08-2011 End: 05-08-2011 Patient encounter procedure Bryan SCOTT MD Work Phone: [employer] [facility] [place] [facility] DepartmentMonkeyFind Start: 06-15-2010 End: 06-15-2010 Patient encounter procedure Bryan SCOTT MD Work Phone: [email or web address] [facility] [place] [facility] DepartmentMonkeyFind Start: 05-18-2010 End: 05-18-2010 Patient encounter procedure Bryan SCOTT MD Work Phone: [employer] [facility] [place] [facility]Mon[facility] Start: 11-29-2009 End: 11-29-2009 Historical Summary Bryan SCOTT MD Work Phone: [facility] [place] [facility] DepartmentFanMob Procedures Date Procedure Procedure Detail Performing Clinician Start: 03-19-2025 Blood pressure withi n normal parameters - no follow-up required Nieves Prescott MD Work Phone: Start: 03-19-2025 BMI outside of zully l parameters - no follow-up plan/reason not given Nieves Prescott MD Work Phone: Start: 03-19-2025 Documentation of cur rent medications Nieves Prescott MD Work Phone: Start: 03-19-2025 Pt scrnd tobacco use rcvd tobacco cessation talk Nieves Prescott MD Work Phone: Start: 03-19-2025 Pain assessment docu mented as positive - no follow-up/reason not given Nieves Prescott MD Work Phone: Start: 03-04-2025 Blood pressure withi n normal parameters - no follow-up required Stephany Gregory JUSTICE PROFESSOR-DIRECTOR OF ACADEMIC SUPPORT Start: 03-04-2025 BMI outside of zully l parameters - no follow-up plan/reason not given Stephany Gregory APRN-DIRECTOR OF [employer] Start: 03-04-2025 Documentation of cur rent medications Stephany Gregory APRN-BRIANNA Start: 03-04-2025 Pain assessment docu mented as positive - follow-up documented Stephany Gregory APRN-BRIANNA Start: 03-04-2025 Tobacco screening or cessation counseling not performed - unknown reason Stephany SINHA Start: 02-21-2025 Radiologic exam ches t [address] Matheus Santamaria MD Work Phone: Start: 02-21-2025 Urnls dip stick/tabl et reagent auto microscopy Dr. Matheus Santamaria MD Work Phone: Start: 02-21-[address] Matheus Santamaria MD Work Phone: Start: 02-21-2025 CT of head without contrast Dr. 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 Plan of Treatment Date Care Activity Detail Author Start: 03-04-2025 End: 03-04-2025 [employer] Work Phone: Start: 03-04-2025 Mri spinal canal lumbar w/o contrast material [employer] Work Phone: Start: 03-04-2025 Radex spine lumbosacral 2/3 views [employer] Work Phone: Start: 03-03-2025 Hemoglobin glycosylated a1c HEMOGLOBIN GLYCLATED (HGB A1C) (24669) Start: 03-Mar-2025 16:47-04:00 [facility], M[employer] of [employer] [facility].; [facility], [facility]. Start: 03-03-2025 Assay of folic acid serum FOLIC ACID SERUM (57568) Start: 03-Mar-2025 16:47-04:00 Request [employer].; [email or web address] [facility] [employer] Start: 03-03-2025 Cyanocobalamin vitamin b-12 VITAMIN B-12 (CYANOCOBALAMIN) (39350) Start: 03-Mar-2025 16:46-04:00 Request [employer].; [email or web address] [facility] [employer] Start: 03-03-2025 Follow-up encounter Medical; HOSPITAL ER FOLLOW UP - [facility] 02/21/[address] [facility]. [employer] [facility] [employer], [employer]. Start: 03-Mar-2025 15:45-04:00 MD Bryan SCOTT Appointment Request [facility] [employer]. Start: 03-03-2025 Echo tthrc r-t 2d w/wom-mode compl spec&colr d CARDIAC ECHO WITH DOPPLER ([id number]) Start: 03-Mar-2025 Intent [employer].; [employer] Start: 03-03-2025 Mri brain brain stem w/o w/contrast material MRI BRAIN W/O & W CONTRAST ([id number]) - IV Contrast per Protocol Start: 03-Mar-2025 Intent [employer].; [email or web address] [facility] [employer] Start: 02-27-2025 [facility] Start: 09-19-2012 Chest x-ray CHEST X-RAY - TWO VIEWS - AP/LL ([id number]) Start: 19-Sep-2012 Intent [employer] Start: 09-19-2012 Complete tthrc echo congenital cardiac anomaly CARDIAC ECHO W/ DOPPLERS ([id number]) ([id number]) Start: 19-Sep-2012 Intent [employer].; [employer] Patient Education [facility] Work Phone: Immunizations Immunization Date Immunization Notes Care Provider Bert quach 08-29-2005 diphtheria, tetanus toxoids and acellular pertussis vaccine Bryan SCOTT MD Work Phone: [facility].; [facility], Makers of [employer] [facility] 08-29-2005 measles, mumps and rubella virus vaccine Bryan SCOTT MD Work Phone: [facility], [employer] [facility].; [facility] 08-29-2005 poliovirus vaccine, inactivated Bryan SCOTT MD Work Phone: [facility], [employer] [facility].; [facility] 08-29-2005 varicella virus vaccine Bryan SCOTT MD Work Phone: [facility], [employer] [facility].; [facility], [employer] [facility] 07-08-2001 diphtheria, tetanus toxoids and acellular pertussis vaccine Bryan SCOTT MD Work Phone: [facility], [employer] [facility].; [facility], M[employer] [facility] 07-08-2001 haemophilus influenz ae type b vaccine, HbOC conjugate Bryan SCOTT MD Work Phone: [facility], M[employer] of [employer] [facility] Hospital[facility]; [facility], M[employer] of [employer] [facility] 07-08-2001 hepatitis B vaccine, pediatric or pediatric/adolescent dosage Bryan SCOTT MD Work Phone: [facility], M[employer] of [employer] [facility] Hospital[facility]; [facility], M[employer] of [employer] [facility] 07-08-2001 measles, mumps and rubella virus vaccine Bryan SCOTT MD Work Phone: [facility], [employer] [facility].; [facility], M[employer] of [employer] [facility]. 2000 diphtheria, tetanus toxoids and acellular pertussis vaccine Bryan SCOTT MD Work Phone: [facility]icsFan[facility].; [facility], M[employer] of [employer] [facility] 2000 haemophilus influenz ae type b vaccine, HbOC conjugate Bryan SCOTT MD Work Phone: [facility]icsFan[facility].; [facility], M[employer] of [employer] [facility] 2000 hepatitis B vaccine, pediatric or pediatric/adolescent dosage Bryan SCOTT MD Work Phone: [facility].; [facility] 2000 poliovirus vaccine, inactivated Bryan SCOTT MD Work Phone: [facility]icsFan[facility].; [facility] [employer] 2000 diphtheria, tetanus toxoids and acellular pertussis vaccine Bryan SCOTT MD Work Phone: [facility].; [facility], M[employer] of [employer] [facility] 2000 haemophilus influenz ae type b vaccine, HbOC conjugate Bryan SCOTT MD Work Phone: [facility].; [facility], M[employer] of [employer] [facility] 2000 hepatitis B vaccine, pediatric or pediatric/adolescent dosage Bryan SCOTT MD Work Phone: [facility].; [facility], M[employer] of [employer] [facility] 2000 poliovirus vaccine, inactivated Bryan SCOTT MD Work Phone: [facility].; [facility] Payers Date Payer Category Payer Self-pay 2025 Unknown [id number] 2000 Unknown [id number] 2.. [id number] 2000 Unknown [id number] 2.. [id number] 2000 Unknown [id number] 2.16. [id number] 2000 Unknown [id number] 2.16. [id number] 2000 Unknown [id number] 2.16. [id number] 2000 Unknown [id number] 2.16. [id number] 2000 Unknown [id number] 2.16. [id number] 2000 Unknown [id number] 2.16. [id number] 2000 Unknown [id number] 2.16. [id number] 2000 Unknown [id number] 2.16. [id number] 2000 Unknown [id number] 2.16. [id number] 2000 Unknown [id number] 2.16. [id number] Unknown [id number] Unknown ANTHEM Unknown [id number] [id number] Unknown [id number] 2.16.8 [id number] Unknown [id number] 2.16.8 [id number] Social History Date Type Detail Facility Start: 02-21-2025 End: 03-12-2025 Tobacco smoking status NJIS Current some day smoker [facility] Start: 03-04-2025 End: 03-12-2025 Sex [facility] Start: 2000 Sex Assigned At Female [facility] Alcohol Use: Alcohol Use: ; N o Alcohol Use. [facility] [place] [facility] DepartmentFanMob.; [facility], [employer] of [employer] [facility] Current school status: Current s chool status: ; Home school. [facility], [employer] [facility].; [facility], M[employer] of [employer] [facility] Tobacco use: Tobacco use: ; N ever smoker. [facility], [employer] [facility].; [facility], [facility] Never smoked tobacco [facility]; [facility] Work Phone: Alcohol Use: Alcohol Use: ; Y es for Alcohol Use. 1 to 7 drinks per week. [facility]; [facility] Tobacco use: Tobacco use: ; F ormer smoker. [facility]; [facility] Ex-smoker [facility]; [facility] Work Phone: Start: 03-04-2025 Tobacco smoking status Smoker (findi ng) [facility] Work Phone: Start: 03-12-2025 smoking/tobacco cessation, patient education and counseling Smoking cessation education (procedure) [facility] Work Phone: Functional Status Date Assessment Result Facility 03-12-2025 Functional Status with [employer]. Work Phone: 03-12-2025 dependent [facility] [employer] Work Phone: Mental Status Date Assessment Result Facility 03-04-2025 Cognitive Function house [employer]. Work Phone: 02-27-2025 Cognitive function Awake [facility] Work Phone: 02-21-2025 Cognitive function Voice/Name [facility] Work Phone: Clinical Notes 02-21-2025 to 03-31-2025 Note Date & Type Note Facility 03-31-2025 Note EXAMINATION: XA GUID E LUMBAR SPINE PUNCTURE [facility]AG[facility] 03/26/2025 04:14 PM CLINICAL HISTORY: Rad Procedure required: = Myelopathy vs myelitis,Myelopathy vs myelitis ASSOCIATED DIAGNOSIS: Myelopathy ORDERING PROVIDER: FLORIDALMA VILLELA TECHNOLOGISTS NOTE: Opening pressure 22 FLUOROSCOPIST: ELIZABETH ALFRED FLUORO TIME: .8 Minutes ATTENDING PHYSICIAN: Elizabeth Alfred RESIDENT/FELLOW PHYSICIAN: Bill Young INTRA-PROCEDURE MEDS: INFORMED CONSENT: Written informed consent was obtained. The procedure, risks, benefits, and alternatives were discussed. All questions were answered. TIMEOUT: Physician led timeout was conducted documenting correct patient, procedure, site, fire risk, antibiotics and allergies. PROCEDURE/TECHNIQUE: The patient was placed in the prone position on the fluoroscopic table. The L2-3 interspace was localized fluoroscopically. The skin overlying the region was prepped in the usual aseptic manner. Generous quantities of one percent lidocaine was used for local anesthesia. The L2-3 space was then accessed with a 20G spinal needle. A fluoroscopic spot image was obtained. A manometer was attached and opening pressure was measured. Four tubes of colorless transparent CSF were obtained, one to two cc in each tube. The needle was removed. The site was dressed with an adhesive bandage. The patient tolerated the procedure well. There was no immediate complication. FINDINGS: Fluoroscopic spot image demonstrates the needle tip projecting over the L2-3 spinal canal IMPRESSION: Technically successful uncomplicated fluoroscopically-guided lumbar puncture. Opening pressure was [address] Elizabeth Alfred was present for the critical portions of the procedure. MACRO: None I have personally reviewed the images and agree with the resident's interpretation. [employer] 03-27-2025 Note POST-PROCEDURE NOTE Procedure: Image guided lumbar puncture Pre-operative Diagnosis: Myelopathy, possible myelitis Post-operative Diagnosis: Myelopathy, possible myelitis Attending: Elizabeth Alfred MD Timing Adjuster: Bill Young DO A TIME OUT was performed prior to the procedure using active communication to verify correct patient, procedure, and site: Yes Complications: None Specimens: 4 tubes Estimated Blood Loss: None Findings: Successful Image Guided Lumbar Puncture Opening pressure of 22 mmHg Plan: F/U with ordering provider for results Please see procedure dictation in EPIC/PACS for full procedural details. Bill Young DO Radiology [employer] 03-26-2025 Note Pre-Procedure Note HISTORY: Procedure: Image Guided Lumbar Puncture Indication: Myelopathy, possible myelitis Planned Sedation: No Consent obtained? Yes Advanced Directives (Living will, health care power of senior production supervisor): none Code Status For This Procedure: Full Code Bill Young DO Radiology [employer] 03-19-2025 Note EXAMINATION: XR C-SP INE FLEX/EXT ONLY 2 VIEWS[facility] 03/17/2025 10:17 AM CLINICAL HISTORY: progressive myelopathy ASSOCIATED DIAGNOSIS: Myelopathy ORDERING PROVIDER: [employer] NOTE: COMPARISON: None FINDINGS: On the lateral view the C-spine is visible to the C7 level. Normal alignment. The vertebral bodies appear intact. There is no prevertebral soft tissue swelling. The atlantodental interval is normal. Posterior projecting osteophytes at C5-C6. There is no pathologic motion. IMPRESSION: No pathologic motion. MACRO: None [facility] Note Neurosurgery Treatme nt Plan Note Patient informed work up ongoing and would like to admit her to continue the workup. Patient states It just doesn't feel right and I would like to go home. Patient aware of the risks and demonstrates medical capacity. Informed patient that Dr. Michel/PROMISE will reach out to her later this am to discuss her next steps. Patient clinical information, exam and imaging discussed with attending, Dr. Michel who agrees with the above. Please call anytime with questions or concerns. Geri Maloney PA-C Neurosurgery Service Pager: [phone] 03/18/2025 - 6:26 AM [facility] 03-18-2025 Note Neurosurgery Treatme nt Plan Note MRI imaging reviewed, final read pending. Staff to review further in am. Will discuss imaging findings with the patient following completion of all imaging. Will obtain CT c spine Please keep patient NPO Admit NSGY RNF under Dr Michel Please call anytime with questions or concerns. Geri Maloney PA-C Neurosurgery Service Pager: [phone] 03/18/2025 - 1:20 AM [facility] 03-17-2025 Note Neurosurgery Treatme nt Plan Note MRI C spine wo imaging reviewed and discussed with attending, Dr. Michel. Patient requires further imaging to further characterize pathology Recommend obtaining stat MRI brain wwo, MRI C spine w contrast Please call anytime with questions or concerns. Geri Maloney PA-C Neurosurgery Service Pager: [phone] 03/17/2025 - 9:46 PM [facility] Discharge summary [facility] 02-27-2025 Discharge summary Note Date/Time February 27, 2025 5:39pm [facility] Medical Records Department [address] [place] [address] Emergency Department Summary 02/27/25 MR#: [id number] Acct: [id number] Name: YULIET DYE PHOEBE Rep #:[id number] : 2000 24 From: Collin Cloud DO PCP: Care Physician,No Primary Status :DEP ER Location: ED HPI History of Present Illness Chief Complaint: Neuro S/Sx Narrative Narrative: Pt is a 24-year-old female who is presenting to the ER today with and mother with similar complaints until last week when she was in the ER as well. Patient had a stroke evaluation last week and was discharged. Patient is havingnumbness and tingling and intermittent pain going from her neck down to both of her hands diffusely. Patient states in the morning she has a hard time using some of the fingers of her left and right hand, but it takes a while to work thepain and the range of motion onto both hands. Patient is also having some numbness and tingling and pain rating from her the right lower back down into her leg. Patient has no aphasia or dysphagia. Patient states she is having intermittent blurry vision, does wear contacts. Has not seen the eye doctor in a few years. Patient has no new acute signs of stroke at this time. Patient isfollowing up with a chiropractor. Patient has not followed up with PCP. at bedside, looking for neurology follow-up. Patient has no saddle seizure, chronic. No recent falls. No other acute complaints. No chest pain or shortness of breath. No mental health history. REVIEW OF SYSTEMS: Unless otherwise stated in this report the patient's positiveand negative responses for review of systems for constitutional, eyes, ENT, cardiovascular, respiratory, gastrointestinal, neurological, , musculoskeletal, and integument systems and related systems to the presenting problem are either stated in the history of present illness or were not pertinent or were negative for the symptoms and/or complaints related to the presenting medical problem. Nurse's notes and vital signs reviewed. The patient is not hypoxic. General: Alert, no acute distress, patient resting comfortably Patient is not toxic or lethargic. Skin: warm, intact, no pallor noted Head: Normocephalic, atraumatic Eye: Normal conjunctiva, no double vision blurry vision loss of vision. Visualacuity within normal limits, slightly decreased in the left side. When testing PERRL and vision failed, patient has no deficits to her vision feels Ears, Nose, Throat: Right tympanic membrane clear, left tympanic membrane clear. No drainage or discharge noted. No pre or post auricular tenderness, erythema, or swelling noted. No rhinorrhea or congestion noted. Posterior oropharynx shows no erythema, tonsillar hypertrophy, exudate. the uvula is midline. no trismus or drooling is noted. Neck: No anterior/posterior lymphadenopathy noted. no erythema, no masses, no fluctuance or induration noted. No meningeal signs. Cardio: Regular Rate and Rhythm Respiratory: No acute distress, no rhonchi, wheezing or rales noted. No stridor or retractions are noted. Abdomen: Obese, no pulsatile mass, no flank pain bilateral., soft, nontender, nomasses detected. No rebound, guarding, or rigidity noted. Neurological: Appropriate for age; NIH 0. Patient does have decreased pinprickand dull sensation to the right leg compared to left. Patient has equal sensation to both arms. Patient states she is having paresthesias to both arms. Patient is also having lumbar radiculopathy/sciatica pain down her right leg. No signs of saddle anesthesia or cauda equina. Patient states his symptoms havebeen the similar symptoms over the past 7 to 10 days. Psychiatric: [facility]operative [facility] Medical History (Updated 02/27/25 @ 16:[address] Collin Cloud DO) Numbness Home Medications ?Medication ?Instructions ?Recorded ?Last Taken ?Type methylprednisolone 4 mg tablets in 4 mg PO UD ##1 02/18 Unknown Rx a dose pack Allergy/AdvReac Type Severity Reaction Status Date / Time No Known Allergies Allergy Verified 02/21/25 03:51 Social History Smoking Status: Current some day smoker tobacco type: e-cigarettes EXAM Physical Exam Const Vital Signs: 02/27/25 12:56 02/27/25 14:55 02/27/25 16:09 Temperature 98.7 F 98.4 F Temperature Source Oral Pulse Rate 111 H 90 88 Respiratory Rate 16 18 20 H Blood Pressure 141/89 H 102/64 107/66 Blood Pressure Mean 106 76 79 Pulse Ox 98 98 97 Oxygen Delivery Method Room Air MDM MDM MDM Narrative Medical decision making narrative: Lengthy discussion was had at bedside on her symptoms of cervical radiculopathy and paresthesias and lumbar radiculopathy paresthesias. Patient has no acute strokelike signs or symptoms at this time. Patient will be referred to neurology and also to orthopedic surgery. [facility]. Patient is not having any newstrokelike signs or symptoms today. No acute indication for CT of the brain again or MRI at this time. After speaking to radiology department, I could perform MRI of the brain at approximately 5 to 5:30 PM. Patient and family are aware of the results we takea few hours after the exam is done, the exam takes approxi-1 hour. Patient doesnot want to have MRI of the brain at this time, we discussed that MRI of the cervical spine and lumbar spine if indicated in the future by PCP may be of morebenefit secondary to her symptoms in her arms and legs. Functional decision capacity patient has, she does not want have MRI of the brain. Mother agrees. They are happy with follow-up and referral to orthopedic surgery and neurology. Patient has no strokelike signs or symptoms that are acute today. No questions discharge patient was placed on a Medrol Dosepak prophylactically Lab Data Labs: Laboratory Results - last 24 hr 02/27/25 14:43 POC Glucose 83 Discharge Plan Triage Chief Complaint: Neuro S/Sx ED Provider: Collin Cloud Dx/Rx/DC Orders Clinical Impression: Bilateral cervical radiculopathy, Paresthesias, Acute right-sided back pain with sciatica Instructions: Back Exercises: Lower Back Rotation, Understanding Lumbar Radiculopathy, Back Exercises: Lower Back Stretch, Cervical Radiculopathy, ED Sciatica, ED Paresthesia Prescriptions: New methylprednisolone 4 mg tablets,dose pack 4 mg PO UD Qty: 1 0RF Primary Care Provider: Care Physician,No Primary Referrals: Tommy Mayen MD [Non-Staff -Ordering Privileges, Neurology] Gomez Irizarry MD [Med Staff - Active Staff, Orthopedics] Care Physician,No Primary [Primary Care Provider, Medical] Activity Restrictions/Additional Instructions: I apologize for delays today in the emergency room, thank you for your patience and understanding. Use ice 20 minutes on, 20 minutes off, do not use heat. Do this for 1 to 2 weeks. Perform cervical stretching and lumbar stretching exercises 3-4 times a day for the next 2 weeks. Follow-up with neurology and orthopedic surgery For further evaluation and treatment. We had discussed [facility], they have walk-in clinicsas well where he could be followed up by orthopedics. Print Language: Qatari Disposition Disposition: Home, Self Care Discharge Date/Time: 02/27/25 16:18 What to do if you have Problems For any increased pain, shortness of breath, bleeding, nausea or vomiting, chestpain, or any unexpected problems, contact your Primary Care Provider. Call [facility] ([phone]) or report to the closest Emergency Room. Call 911 if necessary. 02/27/25 1739 <Electronically signed by Collin Cloud DO> Cosigner Signature (if applicable): CC: No Primary Care Physician ~ Signed [facility] Work Phone: 1(509) 710-351410-04-2025 Radiology Diagnostic study note [facility] Imaging Services [address] [place] [address] Chest PA and Lateral MR#: [id number] Acct: [id number] Name: YULIET DYE PHOEBE Rep #: [id number] : 2000 F 24 From: Gama Johnston MD PCP: Care Physician,No Primary Status: REG ER Study:Chest PA and Lateral Date of Exam: 02/21/25 Exam# [id number] Ordering Dr: Carlos Manuel Santamaria MD PROCEDURE: CHEST PA AND LATERAL 02/21/2025 REASON FOR EXAM: POSS FEVER TECHNIQUE: Procedure Code: RADCXR Modality: DX Procedure: CHEST PA AND LATERAL COMPARISON: None. FINDINGS: The lungs are expanded. There is no demonstrated parenchymal abnormality. There is no demonstrated pleural abnormality. Normal heart and pericardium. Normal mediastinum and rené. Normal visualized pulmonary arteries. Normal visualized aortic arch and descending thoracic aorta. Normal visualized thoracic spine. Normal visualized ribs, clavicles, and shoulders. There is no demonstrated abnormality of the visualized soft tissue structures ofthe upper abdomen. RAD/Chest PA and Lateral IMPRESSION: No evidence for acute abnormality. Reading [facility] CC: Dr. Matheus Santamaria MD; No Primary Care Physician ~ Kiln Cleaner: Signed [facility]10-04-2025 Radiology Diagnostic study note [facility] Imaging Services [address] [place], [place] [address] Brain/Head without Contrast MR#: [id number] Acct: [id number] Name: YULIET DYE PHOEBE Rep #: [id number] : 2000 F 24 From: Gama Johnstno MD PCP: Care Physician,No Primary Status: REG ER Study:Brain/Head without Contrast Date of Exa m: 02/21/25 Exam# [id number] Ordering Dr: Carlos Manuel Santamaria MD PROCEDURE: BRAIN/HEAD WITHOUT CONTRAST 02/21/2025 REASON FOR EXAM: SHAKING EPISODE, POSS SEIZURE; NUMBNESS RIGHT SIDE TECHNIQUE: Procedure Code: CTBR Modality: CT Procedure: BRAIN/HEAD WITHOUT CONTRAST Coronal and Sagittal reconstruction series were provided. One or more dose reduction techniques were used (e.g., Automated exposure control, adjustment of the mA and/or kV according to patient size, use of iterative reconstruction technique. RADIATION DOSE SUMMARY: CTDI Vol 44.99 mGy DLP :846.73 mGycm COMPARISON: none FINDINGS: The visualized brain parenchyma shows normal appearance. No focal parenchymal abnormalities are demonstrated. Dominique-white matter differentiation is maintained. Normal CT appearance of the posterior fossa structures. No intracerebral or extra-axial hemorrhage. No midline shifts or deformity. Normal size and configuration of the cerebral ventricles. No definite calvarial fractures. The osseous structures in the skull base are unremarkable. Paranasal sinuses are unremarkable. CT/Brain/Head without Contrast IMPRESSION: No intracerebral or extra-axial hemorrhage. No acute cerebrovascular insult. If clinical symptoms persist, further evaluation with MRI may be considered as clinically warranted. Unremarkable non-enhanced CT study for the brain. Reading Location: [facility] CC: Dr. Matheus Santamaria MD; No Primary Care Physician ~ Kiln Cleaner: Signed [facility] assessment information available [facility] Work Phone: Hospital Discharge instructionsAdditional Instructions I apologize for delays today in the emergency room, thank you for your patience and understanding. Use ice 20 minutes on, 20 minutes off, do not use heat. Do this for 1 to 2 weeks. Perform cervical stretching and lumbar stretching exercises 3-4 times a day for the next 2 weeks. Follow-up with neurology and orthopedic surgery For further evaluation and treatment. We had discussed following up with the [facility], they have walk-in clinics as well where he could be followed up by orthopedics.[facility] Work Phone: Reason for referral (narrative)No reason for referral information [facility]WDel[facility] Work Phone: Chief Complaint and Reason for Visit Chief Complaint Admit Date numbness February 21, 2025 3: 48am Chief Complaint Admit Date numbness February 21, 2025 3: 48am N/T February 27, 2025 1 2:55pm Advance Directives No Advanced Directives Records Found Advance Directive Response Recorded Date/ Time Do you have a Healthcare Power of Die Casting Machine Maintainer? No February 21, 2025 3:53am Advance Directive Response Recorded Date/ Time Do you have a Healthcare Power of Die Casting Machine Maintainer? No February 21, 2025 3:53am Do you have a Healthcare Power of Die Casting Machine Maintainer? No February 27, 2025 2:04pm Summary Purpose Family History No Family History Records Found Additional Source Comments Care Teams (unrecognized sec tion and content) Team Status: Active Member Role/Relationship Status Dates No Primary Care Physician Primary care physician Activ e Team Status: Inactive Member Role/Relationship Status Dates Dr. Matheus Santamaria MD Emergency Depart ment Physician Active Start: February 21, 2025 End: February 21, 2025 No Primary Care Physician Primary care physician Activ e Start: February 21, 2025 End: February 21, 2025 Team Status: Inactive Member Role/Relationship Status Dates Dr. Matheus Santamaria MD Attending physician Active Start: February 21, 2025 End: February 21, 2025 Dr. Matheus Santamaria MD Emergency Depart ment Physician Active Start: February 21, 2025 End: February 21, 2025 No Primary Care Physician Primary care physician Activ e Start: February 21, 2025 End: February 21, 2025 Team Status: Inactive Member Role/Relationship Status Dates No Primary Care Physician Primary care physician Activ e Start: February 27, 2025 End: February 27, 2025 Dr. Collin Cloud DO Attending physician Active Start: February 27, 2025 End: February 27, 2025 Dr. 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 This clinical summary was aggregated from multiple sources. Caution should be exercised in using it in the provision of clinical care. This summary normalizes information from multiple sources, and as a consequence, information in this document may materially change the coding, format and clinical context of patient data. In addition, data may be omitted in some cases. CLINICAL DECISIONS SHOULD BE BASED ON THE PRIMARY CLINICAL RECORDS. [employer] provides no warranty or guarantee of the accuracy or completeness of information in this document.
[2025-04-15 07:38] LABS: Hematocrit 36.8 % (37-47); Hemoglobin 12.3 g/dL (12.0-15.0); Immature Granulocytes Count 0.030 X10^3/uL (0.0-0.0); Mean Corp Hgb Conc 33.4 g/dL (32-36); Mean Corpuscular Volume 88.5 fL (81-99); Mean Platelet Vol. 9.6 fl (6.2-12.0); NRBC Flagged by Analyzer 0 % (0-5); Platelet Count 309 K/mm3 (150-450); RBC Distribution Width CV 12.1 % (11.6-14.6); RBC Distribution Width SD 38.9 fl (35.1-43.9); Red Blood Count 4.16 M/mm3 (4.2-5.4); White Blood Count 9.8 K/mm3 (4.4-11.0)
[2025-04-15 08:02] VITALS: BP 105/74; PULSE 89; RESP 16; O2SAT 98
[2025-04-15 08:15] LABS: D-Dimer Quantitative (DVT/PE) 0.33 FEU/ug/m (0.27-0.49)
[2025-04-15 08:23] LABS: Troponin T High Sensitivity < 6 ng/L (<=14)
[2025-04-15 08:24] LABS: Anion Gap 13 (5-15); BUN 7 mg/dL (4-19); BUN/Creat Ratio 9.3 RATIO (10-20); Calcium,Total 9.0 mg/dL (7.6-11.0); Carbon Dioxide 22.5 mmol/L (21.0-32.0); Chloride 104 mmol/L (98-108); Estimated Creatinine Clearance 139.34 ml/min (50-250); Glucose 126 mg/dL (70-99); Potassium 3.6 mmol/L (3.3-5.1)
[2025-04-15 09:02] VITALS: BP 109/82; PULSE 84; O2SAT 97
[2025-04-15 09:38] VITALS: BP 117/71; PULSE 96; RESP 16; TEMP 37; O2SAT 98
== END 2025-04-15 09:48 | disposition home or self-care (01) ==
PROVIDERS: Emergency Provider Emergency Medicine; Visit Provider Emergency Medicine
DX: R07.89 Other chest pain (principal); M62.838 Other muscle spasm; F17.290 Nicotine dependence, other tobacco product, uncomplicated
CPT/HCPCS: 71045; 80048; 84484; 85025; 85379; 93005; 96374; 99285

== ENCOUNTER 2025-04-22 04:54 | Emergency (ER) | payer BC, SELFPAY ==
[2025-04-22 04:57] VITALS: BP 146/93; PULSE 110; PULSE 120; RESP 18; TEMP 36.9; O2SAT 96; BMI 34.7
--- NOTE | 2025-04-22 05:21 | EX.ED.DYSGE1 ---
HPI History of Present Illness Chief Complaint: Allergic Reaction Informant: patient and spouse/S.O. Narrative Narrative: Patient is a 24-year-old female who recently underwent a anterior cervical fusion. She states that she was prescribed oxycodone for pain relief after the surgery. She states she is taking it for the last 1 day or so. She states that this morning she noticed a itchy rash mainly on her left arm. She states that the rash is not anywhere else on her body and the only new exposures she can think of is her recent hospitalization and pain medication. She denies any difficulty breathing or swallowing but as she is unsure if it is safe to continue the oxycodone presents for evaluation. [facility] Medical History (Updated 04/22/25 @ 05:[address] Sumanth Maynard DO) Heart murmur Numbness Home Medications ?Medication ?Instructions ?Recorded ?Last Taken ?Type baclofen 10 mg tablet 20 mg PO TID 04/15/25 04/15/25 History naloxone 4 mg/actuation nasal 4 mg intranasal Q3M 04/22/25 Unknown History spray (Narcan) oxycodone 5 mg tablet 5 mg PO Q6H 04/22/25 04/22/25 History sennosides 8.6 mg capsule (senna) 8.6 mg PO DAILY 04/22/25 Unknown History triamcinolone acetonide 0.5 % 1 applic topical TID PRN Skin 04/22/25 Unknown Rx topical cream irritation/rash #15 grams Allergy/AdvReac Type Severity Reaction Status Date / Time No Known Allergies Allergy Verified 04/22/25 04:58 Surgical History (Updated 04/22/25 @ 05:[address] Sumanth Maynard DO) Hx of neck surgery Social History Smoking Status: Current some day smoker tobacco type: e-cigarettes ROS ROS ED Constitutional Constitutional ED: Denies chills or fever(s) Eyes Eyes: Denies change in vision ENT ENT ED: Denies rhinorrhea or sore throat Cardiovascular Cardiovascular: Denies chest pain Respiratory/Chest Respiratory/Chest: Denies cough or dyspnea Gastrointestinal Gastrointestinal: Denies abdominal pain, diarrhea, nausea or vomiting Musculoskeletal Musculoskeletal: Reports neck pain Integumentary Reports rash Neurologic Neurologic: Denies headache(s) Hematologic/Lymphatic Hematologic/Lymphatic: Denies easy bleeding or easy bruising Allergic/Immunologic Allergic/Immunologic ED: Denies mouth swelling, tongue swelling or urticaria EXAM Physical Exam Const Vital Signs: 04/22/25 04:57 04/22/25 04:57 04/22/25 05:02 Temperature 98.4 F Temperature Source Oral Pulse Rate 120 H 110 H Respiratory Rate 18 Respiratory Effort Normal Non-Labored Respiratory Pattern Normal Blood Pressure 146/93 H Blood Pressure Mean 110 Pulse Ox 96 Oxygen Delivery Method Room Air 04/22/25 05:24 Temperature 98.4 F Temperature Source Pulse Rate 91 Respiratory Rate 16 Respiratory Effort Respiratory Pattern Blood Pressure 123/84 H Blood Pressure Mean 97 Pulse Ox 97 Oxygen Delivery Method Positive well nourished and well developed General Appearance ED: well developed HEENT Reports moist mucous membranes HEENT Narrative: Normocephalic atraumatic No tongue or lip swelling no oral lesions no airway edema or compromise No secondary findings in the posterior pharynx to suggest infection Eyes PERRL and EOMs intact bilaterally General Eye ED: Negative for scleral icterus Neck supple Resp normal respiratory effort and clear to auscultation bilaterally Resp Narrative: No nasal flaring retractions tachypnea or accessory muscle use Cardio regular rhythm Rate: tachycardic Extremity Extremity Narrative: Along the volar surface of the left arm starting around the left wrist where patient had a recent IV placement there is red erythematous blanchable well-circumscribed lesions consistent with allergic reaction. The lesions extend up to antecubital space and the distal humerus. There is no involvement of the palms. No vesicular or pustule changes noted. Patient also has similar rash along the dorsal surface of the right forearm at the wrist where recent IV was placed No sloughing of the skin tissue No involvement of the soles Neuro oriented x3 and CN's II-XII intact bilaterally Sensorium / Orientation: alert Psych mental status grossly normal Skin Skin Narrative: Erythematous blanchable well-circumscribed lesions along the left and right forearm near areas of recent IV placement as documented above without secondary findings to suggest cellulitis or abscess formation MDM MDM MDM Narrative Medical decision making narrative: Patient presented with new onset rash mainly on the left arm. There is concern for potential allergic reaction as she recently started oxycodone. The rash however is on the left arm and along the right wrist and nowhere else on the body which would go against an ingested allergic reaction. She does not have findings for anaphylaxis or angioedema either. With the patient having recent hospitalization for surgery and the physical exam shows she had IVs started and placed along the distal aspect of the left and right forearm and she has rashes in each spot this indicates contact dermatitis either from cleaning solution or Tegaderm application. Therefore at this time as she does not have findings of infection or respiratory distress or anaphylaxis or angioedema there is no need for further intervention and patient can be placed on topical triamcinolone cream to help with rash and itch but there is no need for imaging or laboratory studies and as the patient does not have findings of angioedema or anaphylaxis there is no need for IV medication or further evaluation in the ER at this time. History & Record Review Discussion w/independent historian: Patient Discharge Plan Triage Chief Complaint: Allergic Reaction ED Provider: Sumanth Maynard Dx/Rx/DC Orders Clinical Impression: Contact dermatitis, History of fusion of cervical spine Instructions: ED Contact Dermatitis Prescriptions: New triamcinolone acetonide 0.5 % cream 1 applic topical TID PRN (Reason: Skin irritation/rash) Qty: 15 1RF No Action baclofen 10 mg tablet 20 mg PO TID oxycodone 5 mg tablet 5 mg PO Q6H senna 8.6 mg capsule 8.6 mg PO DAILY naloxone [Narcan] 4 mg/actuation spray,non-aerosol 4 mg intranasal Q3M Rx Instructions: spray 1 dose into ONE nostril; alternate nostrils w each dose until help arrives Primary Care Provider: Maryanne Peterson Referrals: Care Physician,No Primary [Non-Staff, Medical] Activity Restrictions/Additional Instructions: Your history and physical exam would indicate the rash to the left and right arm is an allergic reaction but this is most likely secondary to cleaning solution or the Tegaderm that was used to place and secure your IV at your recent hospital visit. Your rash does not show findings for infection and it is not consistent with a drug reaction and therefore I have low concern that your oxycodone is causing the symptoms. Use the topical cream as directed to help control the rash and itch. You can also take qusl-bye-vepupij Benadryl and Pepcid to help with rash and itch relief. If you have any further concerns or worsening of symptoms please return to the ER for repeat evaluation Print Language: Honduran Disposition Disposition: Home, Self Care Discharge Date/Time: 04/22/25 05:33
[2025-04-22 05:24] VITALS: BP 123/84; PULSE 91; RESP 16; TEMP 36.9; O2SAT 97
--- OUTSIDE RECORDS SUMMARY | 2025-04-22 05:33 | XMS RPT_ITS | CCD ---
Author Organization [facility]Critical access hospital [facility] Care Team Providers Care Administrative Technician Name Role Phone Dr. Matheus Santamaria MD Emergency Department Phys ician Care Physician, No Primary Primary Care Physicia n Unavailable SONIA HADLEY, Bryan PETERSON Unavailable KRISTEN PORTILLO MD Unavailable ANNIE PORTILLO MD Unavailable [phone] EDWAR NEWMAN MD Unavailable ARLETTE MCGRAW, BAYLEE Unavailable Unavailable CARI RESENDEZ Unavailable Unavailable Cecy RESENDEZ MD Unavailable Bethanie Vyas Unavailable Unavailable Unavailable Unavailable Bri CUTLER-BRIANNA, Stephany Unavailable Unavailab mikal Scott MD, Louis Peterson Unavailable Dr. Matheus Santamaria MD Attending Physician [phone] Collin ESTEBAN Attending Physician Dr. Collin Cloud DO Emergency Department Physici an Nieves Prescott MD Unavailable [phone] Matheus Santamaria Attending Unavailable Care Physician, No [...] Attending Unavailable PROVIDER, UNKNOWN Admitting Unavailable JAVY ACR Referring Unavailable PROVIDER, UNKNOWN Attending Unavailable PROVIDER, [...] as needed for pain active Stephany Gregory APRN-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 Note for Physical examination: Pt immunizations [...] and legs.). The ER visit was at [facility]. Date:02-21-25 and 02-27-25. New medicaitons include: [...] and legs.). The ER visit was at [facility]. Date:02-21-25 and 02-27-25. New medicaitons include: [...] Interpretation Reference Range Facility Telephone Encounteron 2024 Store Sales Leader [employer] Interface Message Text MRI Neuro Radiology got [...] peer to peer. RN asked Dr Hernandez's medical records secretary to request MRI L spine images through viseto from [facility]. RN called pt. Pt answered. Pt identified by name and date of . RN explained what is going on with MRI and authorization. Pt to plan to come to MRI as scheduled unless hears otherwise from our office. Pt asked about signing up for [employer]. RN sent activation code to phone number requested. Pt received code and will work on signing up. Pt agreeable. No further questions. Pt verbalized understanding. Normal [facility] Telephone Encounteron 2024 Store Sales Leader Authentication Interface Message Text Spoke with Dr [...] Situation explained. Has to confer with his trust evaluation supervisor and will follow up with RN tomorrow. RN notified Financial Clearance and Dr Hernandez. Normal [facility] Store Sales Leader Authentication Interface Message Text RN called pt. Pt answered. Pt identified by name and date of . Pt did have an MRI of the L spine w/o contrast in the last month at [facility] ordered by Dr Stephany Gregory. Pt thinks she gave disc with this image to Dr Michle at [facility] on 03/17/25. Current MRI L spine ordered by Dr Hernandez is with contrast. RN advised will talk to Dr Hernandez to determine if contrast scan is still needed. Pt states she will pay out of pocket for contrast MRI L spine if necessary. Currently scheduled at [facility] for MRI. RN advised will clarify necessity [...] patient is scheduled for a L-spine mri [id number] she is approved for one a [facility] under Dr Pearce if she has had it done can report be obtained or she can call her insurance company and have the auth changed to be done at [facility] if it's not done yet AUTH # [id number] Normal [facility] Addendum Noteon 03-27-2025 Store Sales Leader Authentication Interface Message Text Addended by: MAYELA WHITE on: 03/27/2025 08:41 AM Modules accepted: Orders Normal [facility] CSF CELL COUNTon 03-26-2025 Clarity (U) Clear Normal The [facility] Comment on above: Order Comment: TNC ( Total Nucleated Count) consists of WBC and lining cells. Performed By: #### ALMA CESAR ####[facility] PATHOLOGY [id number] [place], [place], Color (U) Colorless Normal The [facility] Comment on above: Order Comment: TNC ( Total Nucleated Count) consists of WBC and lining cells. Performed By: #### ALMA CESAR ####S PATHOLOGY [id number] [place], [place], RBC (Bld) [#/Vol] 0.76853 10*6/uL High 0-5 Th e [facility] Comment on above: Order Comment: TNC ( Total Nucleated Count) consists of WBC and lining cells. Performed By: #### ALMA CESAR ####[facility] PATHOLOGY [id number] [place], [place], SUPERNATANT Colorless Normal The [facility] Comment on above: Order Comment: TNC ( Total Nucleated Count) consists of WBC and lining cells. Performed By: #### ALMA CESAR ####S PATHOLOGY [id number] [place], [place], TUBE # 4 Normal The [facility] Comment on above: Order Comment: TNC ( Total Nucleated Count) consists of WBC and lining cells. Performed By: #### ALMA CESAR ####S PATHOLOGY [id number] [place], WBC (Bld) [#/Vol] 10*3/uL Normal 0-5 The [facility] Comment on above: Order Comment: TNC ( Total Nucleated Count) consists of WBC and lining cells. Performed By: #### ALMA CESAR ####S PATHOLOGY [id number] [place], [place], CSF DIFFERENTIALon 11-06-202 5 CELLS COUNTED TOTAL # IN BLOOD [address] [facility] System Comment on above: Performed By: #### C SFCOMD TALIIFFCSF ####S PATHOLOGY [id number] [place], [place], FLUID, LYMPHOCYTES 86 % Normal The [facility] System Comment on above: Performed By: #### C SFCOUNTMDIFFCSF ####[facility] [id number] [place], FLUID, NEUTROPHILS 14 % Normal The [facility] System Comment on above: Performed By: #### C SFCOUNTMDIFFCSF ####S PATHOLOGY [id number] [place], [place], CULTURE, CSF/GRAM STAINon CULTURE, CSF/GRAM STAIN C CSF: No Growth GRAM STAIN: This Gram Stain was performed on a Cytocentrifuged specimen. No Polymorphonuclear Leukocytes seen No Squamous Epithelial Cells seen No organisms seen Normal The [facility] System Comment on above: Performed By: #### C CSF ####[facility] Kheodmxrf4[address] [place], [place] GLUCOSE, CSFon 03-26-2025 GLU CSF 67 mg/dL Normal 40-[address] [facility] System Comment on above: Performed By: #### O CONNOR, IGG INDEX #### [facility] Pathology [address] [facility] [place], [place] IGG INDEX AND SYNTHESIS RATE on 03-26-2025 Albumin [Mass/Vol] 4.1 g/dL Normal 3.6-5.[address] [facility] System Comment on above: Order Comment: Dominick arthur Agency Address Site ID: AMD Name: [facility] Address: [address] [place] [address] [place], [place] Director: Carlo Duke M.D.,PhD Performed By: #### O LIGO, IGG INDEX #### [facility] Pathology [address] [facility] [place], [place] CSF ALBUMIN 7.8 mg/dL Low 8.0-42.[address] [facility] System Comment on above: Order Comment: Dominick arthur Agency Address Site ID: AMD Name: [facility] Address: [address] [place] [address] Dr [place], [place] Director: Carlo Duke M.D.,PhD Performed By: #### O LIGO, IGG INDEX #### [facility] [address] [facility] [place], [place] CSF IGG 1.2 mg/dL Normal 0.8-7.7 [facility] Comment on above: Order Comment: [facility] Site ID: [id number] Name: [facility] Address: [address] [place] [address] Dr [place], [place] Director: Carlo Duke M.D.,PhD Performed By: #### O JOYCELYNO, IGG INDEX #### [facility] Pathology [address] [place] [address] [place], [place] CSF IGG INDEX 0.70 High <0.[address] [facility] System Comment on above: Order Comment: Dominick [facility] Site ID: AMD Name: [facility] Address: [address] [place] [address] [place], [place] Director: Carlo Duke M.D.,PhD Result Comment: The IgG Synthesis rate, CSF and IgG index, CSF are two formulae for estimating the amount of IgG produced in the central nervous system. Evidence of increased synthesis of IgG provides support for the diagnosis of multiple sclerosis. Performed By: #### O LIGO, IGG INDEX #### [facility] Pathology [address] [facility] [place], [place] CSF IGG SYNTHESIS -1.5 mg/24 h Normal -9.9-3.[address] [facility] System Comment on above: Order Comment: [facility] Site ID: AMD Name: [facility] Address: [address] [place] [address] Dr [place], [place] Director: Carlo Duke M.D.,PhD Performed By: #### O LIGO, IGG INDEX #### [facility] Pathology [address] [facility] [place], [place] IGG TOTAL 902 mg/dL Normal 600-[address] [facility] System Comment on above: Order Comment: Resul ting Agency Address Site ID: AMD Name: [facility] Address: [id number] [place] [address] [place], [place] Director: Carlo Duke M.D.,PhD Performed By: #### O CONNOR, IGG INDEX #### [facility] [address] [facility] [place], [place] OLIGOCLONAL BANDS, SERUM AND CSFon 03-26-2025 OLIGOCLONAL BANDS Absent Normal Absent The [facility] Comment on above: Order Comment: Dominick arthur Agency Address Site ID: AMD Name: [facility] Address: [id number] [place] [address] Dr [place], [place] Director: Carlo Duke M.D.,PhD Result Comment: [...] bands due to local production in the COTTON AGENT, serum and CSF should be tested simultaneously. Oligoclonal bands can however be observed in a variety of other diseases, e.g., subacute sclerosing panen- cephalitis, inflammatory polyneuropathy, COTTON AGENT lupus, and brain tumors and infarctions. The clinical significance of a numerical band count, determined by isoelectric focusing, has not been definitively defined. The data should be interpreted in conjunction with all pertinent clinical and laboratory data for this patient. Performed By: #### O CONNOR, IGG INDEX #### [facility] [address] [facility] [place], [place] TOTAL PROTEIN, CSFon 025 TP CSF 16.9 mg/dL Normal 15-45 [facility] Comment on above: Performed By: #### Z INC #### [facility] [address] [facility] [place], [place] Addendum Noteon 03-25-2025 Store Sales Leader Authentication Interface Message Text Addended by: MAYELA WHITE on: 03/25/2025 10:44 AM Modules accepted: Orders Normal [facility] Addendum Noteon 03-24-2025 Store Sales Leader Authentication Interface Message Text Addended by: FLORIDALMA VILLELA on: 03/24/2025 04:35 PM Modules accepted: Orders Normal [facility] Store Sales Leader Authentication Interface Message Text Addended by: FLORIDALMA VILLELA on: 03/24/2025 01:12 PM Modules accepted: Orders Normal [facility] ANCA PANEL FOR VASCULITISon 03-23-2025 MYELOPEROXIDASE < 0.2 Normal <1.0 [facility] Comment on above: Performed By: #### A NCA COELHO VAS #### [facility] [address] [place] [address], MYELOPEROXIDASE INTERPRETATION Negative Normal Negative [facility] Comment on above: Performed By: #### A NCA COELHO VAS #### [facility] [address] [place] [address], PROTEINASE-3 < 0.2 Normal <1.0 [facility] Comment on above: Performed By: #### A NCA COELHO VAS #### [facility] [address] [place] [address], PROTEINASE-3 INTERPRETATION Negative Normal Negative [facility] Comment on above: Performed By: #### A NCA COELHO VAS #### S PATHOLOGY LABORATORY [address] [place] [address], COPPERon 03-23-2025 GATE WATCHMAN 118 mcg/dL Normal 70-175 [facility] Comment on above: Order Comment: Dominick arthur Agency Address Site ID: AMD Name: [facility] Address: [id number] [place] [address] [place] [address] Director: Carlo Duke M.D.,PhD Result Comment: This test was developed and its analytical performance characteristics have been determined by [facility] [place], [place]. It has not been cleared or approved by the U.S. Food and Drug Administration. This assay has been validated pursuant to the CLIA regulations and is used for clinical purposes. Performed By: #### C OP #### [facility] [address] [place] [address] [place], [place] METHYLMALONIC ACIDon 025 MMA 82 nmol/L Normal 55-[address] [facility] System Comment on above: Order Comment: Dominick [facility] Address Site ID: AMD Name: [facility] Address: [address] [facility] [address] [place], [place] Director: Carlo Duke M.D.,PhD Result Comment: [...] neural tube defects and intrauterine growth restriction. [facility] utilized Multi-Modal Decomposition (MMD) analysis to establish first and second trimester-specific MMA reference intervals in , as given below: MMA, First trimester (<13 wks gestation): 58-167 nmol/L MMA, Second trimester (13-23 wks gestation): 63-241 nmol/L Note 1 This test was developed and its analytical performance characteristics have been determined by [facility]. It has not been cleared or approved by the FDA. This assay has been validated pursuant to the CLIA regulations and is used for clinical purposes. Performed By: #### O LIGO, IGG INDEX #### [facility] Pathology [address] [facility] [place], [place] MOG ANTIBODY WITH REFLEX TO TITER, SERUMon 03-23-2025 MOG AB CBA, SERUM Negative Normal NEGATIVE The [facility] System Comment on above: Order Comment: Dominick [facility] Address Site ID: AMD Name: [facility] Address: [address] [facility] [address] [place], [place] Director: Carlo Duke M.D.,PhD Result Comment: This test was developed and its analytical performance characteristics have been determined by [facility]. It has not been cleared or approved by the FDA. This assay has been validated pursuant to the CLIA regulations and is used for clinical purposes. Performed By: #### O LIGO, IGG INDEX #### [facility] Pathology [address] [facility] [address] [place], [place] NMO AQUAPORIN 4 IGG, CBAon 1 05-23-2024 AQUAPORIN 4 RECEPTOR AB, IGG Negative Normal NEGATIVE [facility] Comment on above: Order Comment: Dominick arthur Agency Address Site ID: AMD Name: [facility] [place] Address: [address] [place] [address] [place], [place] Director: Carlo Duke M.D.,PhD Result Comment: This test was developed and its analytical performance characteristics have been determined by [facility]. It has not been cleared or approved by the FDA. This assay has been validated pursuant to the CLIA regulations and is used for clinical purposes. Performed By: #### O LIGO, IGG INDEX #### [facility] Pathology [address] [facility] [address] [place], [place] Patient Instructionson 03-23 Store Sales Leader [employer] Interface Message Text We discussed that your [...] your symptoms (spasms and tightness). Normal The [facility] Interface Message Text Please call the Neurosurgery energy scheduler at [phone] to schedule your surgery, pre-admission testing appointment, virtual spine surgery education class, and postoperative appointment. Please call [phone] or [phone] to schedule your imaging study or studies. Once you have the date for your imaging, please call the Neurosurgery energy scheduler at [phone] to confirm the timing of the imaging study and schedule a follow-up appointment with Dr. Hernandez to review the results if needed. Normal [facility] Progress Noteson 03-23-2025 Store Sales Leader Authentication Interface Message Text [facility] Department of Neurology Neuroimmunology Clinic New Patient [...] and difficult ambulating increased. She presented to [facility] - who ordered an MRI of lumbar [...] week. 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 Lives at home with her . She [...] Sensor (more content not included)... 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 History Chief Complain: arm and leg [...] alleviate her chronic pain symptoms. The modified [employer] score: Motor dysfunction score of [...] wo (more content not included)... Normal [facility] VITAMIN D, 25-HYDROXYon 11-0 VITD25 14.7 ng/mL Low 30-100 The [facility] Comment on above: Order Comment: Defic ient : <20.0 ng/mL Insufficient : 20.0-29.9 ng/mL Sufficient : 30.0 - 100.0 ng/mL Potential Toxicity : >100.0 ng/mL Performed By: #### V ITD25 #### [facility] [address] [place] [address], [id number] ZINCon 03-23-2025 ZINC 76 mcg/dL Normal 60-130 [facility] Comment on above: Order Comment: Dominick arthur Agency Address Site ID: AMD Name: [facility] Address: [address] [place] [address] Dr [place], [place] Director: Carlo Duke M.D.,PhD Result Comment: This test was developed and its analytical performance characteristics have been determined by [facility] [place], [place]. It has not been cleared or approved by the U.S. Food and Drug Administration. This assay has been validated pursuant to the CLIA regulations and is used for clinical purposes. Performed By: #### Z INC #### [facility] Pathology [address] [facility] [address] [place], [place] [address] CBC W/Diff, Automatedon 10- Absolute Lymph 2.10 X10 3/uL Normal 0.83-4.51 [facility] Comment on above: Order Comment: REDRA W. PREVIOUS SPECIMEN REJECTED DUE TOCLOT. 03/20/2539 Aishwarya Johnson. Performed By: #### L 100.0100 ####[facility] [address] [place], [address] Absolute Neut 8.2 X10 3/uL High 2.0-7.7 [facility] Comment on above: Order Comment: REDRA W. PREVIOUS SPECIMEN REJECTED DUE TOCLOT. 03/20/2539 Aishwarya Johnson. Performed By: #### L 100.0100 ####[facility] [address] [place], [address] Basophils/100 WBC (Bld) 0.3 % Normal 0-1 W [facility] Comment on above: Order Comment: REDRA W. PREVIOUS SPECIMEN REJECTED DUE TOCLOT. 03/20/2539 Aishwarya Johnson. Performed By: #### L 100.0100 ####[facility] [address] [place], [address] Eosinophils/100 WBC (Bld) 0.1 % Normal 0-5 [facility] Comment on above: Order Comment: REDRA W. PREVIOUS SPECIMEN REJECTED DUE TOCLOT. 03/20/2539 Aishwarya Johnson. Performed By: #### L 100.0100 ####[facility] [address] [place], [address] Erythrocyte distribution width (RBC) [Ratio] 12.2 % Normal 11.6-14.6 [facility] Comment on above: Order Comment: REDRA W. PREVIOUS SPECIMEN REJECTED DUE TOCLOT. 03/20/2539 Aishwarya Johnson. Performed By: #### L 100.0100 ####[facility] [address] [place], [address] Hematocrit (Bld) [Volume fraction] 36.1 % Low 37-47 [facility] Comment on above: Order Comment: REDRA W. PREVIOUS SPECIMEN REJECTED DUE TOCLOT. 03/20/2539 Aishwarya Johnson. Performed By: #### L 100.0100 ####[facility] [address] [place], [address] Hemoglobin (Bld) [Mass/Vol] 12.3 g/dL Normal 12.0-15.0 [facility] Comment on above: Order Comment: REDRA W. PREVIOUS SPECIMEN REJECTED DUE TOCLOT. 03/20/2539 Aishwarya Johnson. Performed By: #### L 100.0100 ####[facility] [address] [place], [address] IG% 0.300 Normal 0.0-0.9 [facility] Comment on above: Order Comment: REDRA W. PREVIOUS SPECIMEN REJECTED DUE TOCLOT. 03/20/25938 Aishwaryatonio Johnson. Result Comment: IG% - Immature Granulocytes (promyelocytes, myelocytes and metamyelocytes) > 1% indicates that a LEFT SHIFT is Present. Performed By: #### L 100.0100 ####[facility] [address] [place], [address] Lymphocytes/100 WBC (Bld) 19.6 % Normal 19-41 [facility] Comment on above: Order Comment: REDRA W. PREVIOUS SPECIMEN REJECTED DUE TOCLOT. 03/20/2539 Aishwarya Johnson. Performed By: #### L 100.0100 ####[facility] [address] [place], [address] MCH (RBC) [Entitic mass] 29.9 pg Normal 27.0-32.0 [facility] Comment on above: Order Comment: REDRA W. PREVIOUS SPECIMEN REJECTED DUE TOCLOT. 03/20/25938 Aishwarya Johnson. Performed By: #### L 100.0100 ####[facility] [address] [place], [address] MCHC (RBC) [Mass/Vol] 34.1 g/dL Normal 32-36 [facility] Comment on above: Order Comment: REDRA W. PREVIOUS SPECIMEN REJECTED DUE TOCLOT. 03/20/25938 Aishwaryaamelia Johnson. Performed By: #### L 100.0100 ####[facility] [address] [place], [address] MCV (RBC) [Entitic vol] 87.8 fL Normal 81-99 [facility] Comment on above: Order Comment: REDRA W. PREVIOUS SPECIMEN REJECTED DUE TOCLOT. 03/20/2539 Aishwarya Johnson. Performed By: #### L 100.0100 ####[facility] [address] [place], [address] Monocytes/100 WBC (Bld) 3.2 % Normal 0-10 [facility] Comment on above: Order Comment: REDRA W. PREVIOUS SPECIMEN REJECTED DUE TOCLOT. 03/20/25938 Aishwaryaamelia Johnson. Performed By: #### L 100.0100 ####[facility] [address] [place], [address] Neutrophils/100 WBC (Bld) 76.5 % High 47-70 [facility] Comment on above: Order Comment: REDRA W. PREVIOUS SPECIMEN REJECTED DUE TOCLOT. 03/20/2539 Aishwaray Johnson. Performed By: #### L 100.0100 ####[facility] [address] [place], [address] Nucleated RBC (Bld) [#/Vol] 0 10*3/uL Normal 0-5 [facility] Comment on above: Order Comment: REDRA W. PREVIOUS SPECIMEN REJECTED DUE TOCLOT. 03/20/25938 Aishwarya Johnson. Performed By: #### L 100.0100 ####[facility] [address] [place], [address] Platelet mean volume (Bld) [Entitic vol] 9.4 fL Normal 6.2-12.0 [facility] Comment on above: Order Comment: REDRA W. PREVIOUS SPECIMEN REJECTED DUE TOCLOT. 03/20/25938 Aishwarya Johnson. Performed By: #### L 100.0100 ####[facility] [address] [place], [address] Platelets (Bld) [#/Vol] 298 10*3/uL Normal 150-450 [facility] Comment on above: Order Comment: REDRA W. PREVIOUS SPECIMEN REJECTED DUE TOCLOT. 03/20/25938 Aishwarya Johnson. Performed By: #### L 100.0100 ####[facility] [address] [place], [address] RBC (Bld) [#/Vol] 4.11 10*6/uL Low 4.2-5.4 [facility] Comment on above: Order Comment: REDRA W. PREVIOUS SPECIMEN REJECTED DUE TOCLOT. 03/20/25938 Aishwarya Johnson. Performed By: #### L 100.0100 ####[facility] [address] [place], [address] RDW SD 39.5 fl Normal 35.1-43.9 [facility] Comment on above: Order Comment: REDRA W. PREVIOUS SPECIMEN REJECTED DUE TOCLOT. 03/20/25938 Aishwarya Johnson. Performed By: #### L 100.0100 ####[facility] [address] [place], [address] WBC (Bld) [#/Vol] 10.7 10*3/uL Normal 4.4-11.0 [facility] Comment on above: Order Comment: SHERITA West. PREVIOUS SPECIMEN REJECTED DUE TOCLOT. 03/20/25938 Aishwarya Johnson. Performed By: #### L 100.0100 ####[facility] [address] [place], [address] Absolute Neut Normal 2.0-7.7 [facility] Comment on above: Result Comment: This specimen has been REJECTED due to Laboratory criteria: Clotted. SUZANNE CALLAHAN has been notified of need of recollection. 03/20/25937 Aishwarya Alex Performed By: #### L 100.0100, L500.4050 #### [facility] [address] [facility] [address] HCT Normal 37-47 [facility] Comment on above: Result Comment: This specimen has been REJECTED due to Laboratory criteria: Clotted. SUZANNE CALLAHAN has been notified of need of recollection. 03/20/25937 Aishwarya Johnson Performed By: #### L 100.0100, L500.4050 #### [facility] [address] [facility] [address] HGB Normal 12.0-15.0 [facility] Comment on above: Result Comment: This specimen has been REJECTED due to Laboratory criteria: Clotted. SUZANNE CALLAHAN has been notified of need of recollection. 03/20/25937 Aishwarya Alex Performed By: #### L 100.0100, L500.4050 #### [facility] [address] [place], [address] MCH Normal 27.0-32.0 [facility] Comment on above: Result Comment: This specimen has been REJECTED due to Laboratory criteria: Clotted. SUZANNE CALLAHAN has been notified of need of recollection. 03/20/25937 Aishwaryatonio Johnson Performed By: #### L 100.0100, L500.4050 #### [facility] [address] [place], [address] MCHC Normal 32-36 [facility] Comment on above: Result Comment: This specimen has been REJECTED due to Laboratory criteria: Clotted. SUZANNE CALLAHAN has been notified of need of recollection. 03/20/25937 Aishwarya Johnson Performed By: #### L 100.0100, L500.4050 #### [facility] [address] [place], [address] MCV Normal 81-99 [facility] Comment on above: Result Comment: This specimen has been REJECTED due to Laboratory criteria: Clotted. SUZANNE CALLAHAN has been notified of need of recollection. 03/20/25937 Aishwarya Alex Performed By: #### L 100.0100, L500.4050 #### [facility] [address] [place], [address] NEUT% Normal 47-70 [facility] Comment on above: Result Comment: This specimen has been REJECTED due to Laboratory criteria: Clotted. SUZANNE CALLAHAN has been notified of need of recollection. 03/20/25937 Aishwarya Johnson Performed By: #### L 100.0100, L500.4050 #### [facility] [address] [place], [address] PLT Normal 150-450 [facility] Comment on above: Result Comment: This specimen has been REJECTED due to Laboratory criteria: Clotted. SUZANNE CALLAHAN has been notified of need of recollection. 03/20/25937 Aishwarya Johnson Performed By: #### L 100.0100, L500.4050 #### [facility] [address] [place], [address] RBC Normal 4.2-5.4 [facility] Comment on above: Result Comment: This specimen has been REJECTED due to Laboratory criteria: Clotted. SUZANNE CALLAHAN has been notified of need of recollection. 03/20/25937 Aishwarya Johnson Performed By: #### L 100.0100, L500.4050 #### [facility] [address] [place], [address] RDW CV Normal 11.6-14.6 [facility] Comment on above: Result Comment: This specimen has been REJECTED due to Laboratory criteria: Clotted. SUZANNE CALLAHAN has been notified of need of recollection. 03/20/25937 Aishwarya Johnson Performed By: #### L 100.0100, L500.4050 #### [facility] [address] [place], [address] RDW SD Normal 35.1-43.9 [facility] Comment on above: Result Comment: This specimen has been REJECTED due to Laboratory criteria: Clotted. SUZANNE CALLAHAN has been notified of need of recollection. 03/20/25937 Aishwarya Johnson Performed By: #### L 100.0100, L500.4050 #### [facility] [address] [place], [address] WBC Normal 4.4-11.0 [facility] Comment on above: Result Comment: This specimen has been REJECTED due to Laboratory criteria: Clotted. SUZANNE CALLAHAN has been notified of need of recollection. 03/20/25937 Aishwarya Johnson Performed By: #### L 100.0100, L500.4050 #### [facility] [address] [place], [address] Comprehensive Metabolic Prof ilon 03-20-2025 Albumin [Mass/Vol] 4.2 g/dL Normal 3.5-5.0 [facility] Comment on above: Order Comment: REDRA W. PREVIOUS SPECIMEN REJECTED DUE TO SPECIMEN BEING HEMOLYZED. 03/20/25956 Thor Nicole Performed By: #### L 501.5200, L500.4050 #### [facility] [address] [place], [address] Albumin/Globulin [Mass ratio] 1.6 {ratio} Normal 0.9-2.4 [facility] Comment on above: Order Comment: REDRA W. PREVIOUS SPECIMEN REJECTED DUE TO SPECIMEN BEING HEMOLYZED. 03/20/25956 Thor Nicole Performed By: #### L 501.5200, L500.4050 #### [facility] [address] [place], [address] ALK PHOS 52 U/L Normal 35-104 [facility] Comment on above: Order Comment: REDRA W. PREVIOUS SPECIMEN REJECTED DUE TO SPECIMEN BEING HEMOLYZED. 03/20/25956 Thor Nicole Performed By: #### L 501.5200, L500.4050 #### [facility] [address] [place], [address] ALT [Catalytic activity/Vol] 31 U/L Normal <=34 [facility] Comment on above: Order Comment: REDRA W. PREVIOUS SPECIMEN REJECTED DUE TO SPECIMEN BEING HEMOLYZED. 03/20/25956 Thor Nicole Performed By: #### L 501.5200, L500.4050 #### [facility] [address] [place], [address] AST [Catalytic activity/Vol] 23 U/L Normal <=31 [facility] Comment on above: Order Comment: REDRA W. PREVIOUS SPECIMEN REJECTED DUE TO SPECIMEN BEING HEMOLYZED. 03/20/25956 Thor Nicole Performed By: #### L 501.5200, L500.4050 #### [facility] [address] [place], [address] Bilirubin [Mass/Vol] 0.33 mg/dL Normal 0.00-1.[address] [facility] Comment on above: Order Comment: REDRA W. PREVIOUS SPECIMEN REJECTED DUE TO SPECIMEN BEING HEMOLYZED. 03/20/25956 Thor Nicole Performed By: #### L 501.5200, L500.4050 #### [facility] [address] [place], [address] BUN/CRE 8.8 RATIO Low 10-20 [facility] Comment on above: Order Comment: REDRA W. PREVIOUS SPECIMEN REJECTED DUE TO SPECIMEN BEING HEMOLYZED. 03/20/25956 Thor King. Performed By: #### L 501.5200, L500.4050 #### [facility] [address] [place], [address] Calcium [Mass/Vol] 8.9 mg/dL Normal 7.6-11.0 [facility] Comment on above: Order Comment: REDRA W. PREVIOUS SPECIMEN REJECTED DUE TO SPECIMEN BEING HEMOLYZED. 03/20/25956 Thor King. Performed By: #### L 501.5200, L500.4050 #### [facility] [address] [place], [address] Chloride [Moles/Vol] 106 mmol/L Normal 98-[address] [facility] Comment on above: Order Comment: REDRA W. PREVIOUS SPECIMEN REJECTED DUE TO SPECIMEN BEING HEMOLYZED. 03/20/25956 Thor King. Performed By: #### L 501.5200, L500.4050 #### [facility] [address] [place], [address] CO2 [Moles/Vol] 23.8 mmol/L Normal 21.0-32.0 [facility] Comment on above: Order Comment: REDRA W. PREVIOUS SPECIMEN REJECTED DUE TO SPECIMEN BEING HEMOLYZED. 03/20/25956 Thor King. Performed By: #### L 501.5200, L500.4050 #### [facility] [address] [place], [address] Creatinine [Mass/Vol] 0.79 mg/dL Normal 0.70-1.20 [facility] Comment on above: Order Comment: REDRA W. PREVIOUS SPECIMEN REJECTED DUE TO SPECIMEN BEING HEMOLYZED. 03/20/25956 Thor King. Performed By: #### L 501.5200, L500.4050 #### [facility] [address] [place], [address] ECRCL 128.48 ml/min Normal 50-250 [facility] Comment on above: Order Comment: REDRA W. PREVIOUS SPECIMEN REJECTED DUE TO SPECIMEN BEING HEMOLYZED. 03/20/25956 Thor Nicole Performed By: #### L 501.5200, L500.4050 #### [facility] [address] [place], [address] GAP 10 Normal 5-15 [facility] Comment on above: Order Comment: REDRA W. PREVIOUS SPECIMEN REJECTED DUE TO SPECIMEN BEING HEMOLYZED. 03/20/25956 Thor King. Performed By: #### L 501.5200, L500.4050 #### [facility] [address] [place], [address] GFR/1.73 sq M.predicted among non-blacks MDRD (S/P/Bld) [Vol rate/Area] 108 mL/min/{1.73_m2} Normal >60 [facility] Comment on above: Order Comment: REDRA W. PREVIOUS SPECIMEN REJECTED DUE TO SPECIMEN BEING HEMOLYZED. 03/20/25956 Thor Nicole Result Comment: mL/m in/1.73m2 CKD-EPI Creatinine Equation (2020) Performed By: #### L 501.5200, L500.4050 #### [facility] [address] [place], [address] Globulin (S) [Mass/Vol] 2.7 g/dL Normal 2.2-4.2 W [facility] Comment on above: Order Comment: REDRA W. PREVIOUS SPECIMEN REJECTED DUE TO SPECIMEN BEING HEMOLYZED. 03/20/25956 Thor King. Performed By: #### L 501.5200, L500.4050 #### [facility] [address] [place], [address] Glucose [Mass/Vol] 122 mg/dL High 70-99 [facility] Comment on above: Order Comment: REDRA W. PREVIOUS SPECIMEN REJECTED DUE TO SPECIMEN BEING HEMOLYZED. 03/20/25956 Thor King. Performed By: #### L 501.5200, L500.4050 #### [facility] [address] [place], [address] Potassium [Moles/Vol] 3.8 mmol/L Normal 3.3-5.1 [facility] Comment on above: Order Comment: REDRA W. PREVIOUS SPECIMEN REJECTED DUE TO SPECIMEN BEING HEMOLYZED. 03/20/25956 Thor King. Performed By: #### L 501.5200, L500.4050 #### [facility] [address] [place], [address] Sodium [Moles/Vol] 140 mmol/L Normal 133-145 [facility] Comment on above: Order Comment: REDRA W. PREVIOUS SPECIMEN REJECTED DUE TO SPECIMEN BEING HEMOLYZED. 03/20/25956 Thor King. Performed By: #### L 501.5200, L500.4050 #### [facility] [address] [place], [address] T PROT 6.9 g/dL Normal 5.9-8.4 [facility] Comment on above: Order Comment: REDRA W. PREVIOUS SPECIMEN REJECTED DUE TO SPECIMEN BEING HEMOLYZED. 03/20/25956 Thor King. Performed By: #### L 501.5200, L500.4050 #### [facility] [address] [place], [address] Urea nitrogen [Mass/Vol] 7 mg/dL Normal 4-19 [facility] Comment on above: Order Comment: REDRA W. PREVIOUS SPECIMEN REJECTED DUE TO SPECIMEN BEING HEMOLYZED. 03/20/25956 Thro Nicole Performed By: #### L 501.5200, L500.4050 #### [facility] [address] [place], [address] ALB Normal 3.5-5.0 [facility] Comment on above: Result Comment: This specimen has been REJECTED due to Laboratory criteria: Hemolyzed. SUZANNE IN ER has been notified of need of recollection. 03/20/25955 Thor R Stoner Performed By: #### L 100.0100, L500.4050 #### [facility] [address] [place], [address] ALK PHOS Normal 35-104 [facility] Comment on above: Result Comment: This specimen has been REJECTED due to Laboratory criteria: Hemolyzed. SUZANNE IN ER has been notified of need of recollection. 03/20/25955 Thor R Stoner Performed By: #### L 100.0100, L500.4050 #### [facility] [address] [place], [address] ALT Normal <=34 [facility] Comment on above: Result Comment: This specimen has been REJECTED due to Laboratory criteria: Hemolyzed. SUZANNE IN ER has been notified of need of recollection. 03/20/25955 Thor R Stoner Performed By: #### L 100.0100, L500.4050 #### [facility] [address] [place], [address] AST Normal <=31 [facility] Comment on above: Result Comment: This specimen has been REJECTED due to Laboratory criteria: Hemolyzed. SUZANNE IN ER has been notified of need of recollection. 03/20/25955 Thor R Stoner Performed By: #### L 100.0100, L500.4050 #### [facility] [address] [place], [address] BUN Normal 4-19 [facility] Comment on above: Result Comment: This specimen has been REJECTED due to Laboratory criteria: Hemolyzed. SUZANNE IN ER has been notified of need of recollection. 03/20/25955 Thor R Stoner Performed By: #### L 100.0100, L500.4050 #### [facility] [address] [place], [address] BUN/CRE Normal 10-20 [facility] Comment on above: Result Comment: This specimen has been REJECTED due to Laboratory criteria: Hemolyzed. SUZANNE IN ER has been notified of need of recollection. 03/20/25955 Thor Huddlestonr Performed By: #### L 100.0100, L500.4050 #### [facility] [address] [place], [address] Calcium Normal 7.6-11.0 [facility] Comment on above: Result Comment: This specimen has been REJECTED due to Laboratory criteria: Hemolyzed. SUZANNE IN ER has been notified of need of recollection. 03/20/25955 Thor Huddlestonr Performed By: #### L 100.0100, L500.4050 #### [facility] [address] [place], [address] CL Normal 98-108 [facility] Comment on above: Result Comment: This specimen has been REJECTED due to Laboratory criteria: Hemolyzed. SUZANNE IN ER has been notified of need of recollection. 03/20/25955 Thor Huddlestonr Performed By: #### L 100.0100, L500.4050 #### [facility] [address] [place], [address] CO2 Normal 21.0-32.0 [facility] Comment on above: Result Comment: This specimen has been REJECTED due to Laboratory criteria: Hemolyzed. SUZANNE IN ER has been notified of need of recollection. 03/20/25955 Thor Huddlestonr Performed By: #### L 100.0100, L500.4050 #### [facility] [address] [place], [address] CREAT,SERUM Normal 0.70-1.20 [facility] Comment on above: Result Comment: This specimen has been REJECTED due to Laboratory criteria: Hemolyzed. SUZANNE IN ER has been notified of need of recollection. 03/20/25955 Thor R Stoner Performed By: #### L 100.0100, L500.4050 #### [facility] [address] [place], [address] eGFR Normal >60 [facility] Comment on above: Result Comment: This specimen has been REJECTED due to Laboratory criteria: Hemolyzed. SUZANNE IN ER has been notified of need of recollection. 03/20/25955 Thor R Stoner Performed By: #### L 100.0100, L500.4050 #### [facility] [address] [place], [address] GAP Normal 5-15 [facility] Comment on above: Result Comment: This specimen has been REJECTED due to Laboratory criteria: Hemolyzed. SUZANNE IN ER has been notified of need of recollection. 03/20/25955 Thor R Stoner Performed By: #### L 100.0100, L500.4050 #### [facility] [address] [place], [address] GLU Normal 70-99 [facility] Comment on above: Result Comment: This specimen has been REJECTED due to Laboratory criteria: Hemolyzed. SUZANNE IN ER has been notified of need of recollection. 03/20/25955 Thor R Stoner Performed By: #### L 100.0100, L500.4050 #### [facility] [address] [place], [address] Potassium Normal 3.3-5.1 [facility] Comment on above: Result Comment: This specimen has been REJECTED due to Laboratory criteria: Hemolyzed. SUZANNE IN ER has been notified of need of recollection. 03/20/25955 Thor R Stoner Performed By: #### L 100.0100, L500.4050 #### [facility] [address] [place], [address] T BILI Normal 0.00-1.30 [facility] Comment on above: Result Comment: This specimen has been REJECTED due to Laboratory criteria: Hemolyzed. SUZANNE IN ER has been notified of need of recollection. 03/20/25955 Thor Huddlestonr Performed By: #### L 100.0100, L500.4050 #### [facility] [address] [place], [address] T PROT Normal 5.9-8.4 [facility] Comment on above: Result Comment: This specimen has been REJECTED due to Laboratory criteria: Hemolyzed. SUZANNE IN ER has been notified of need of recollection. 03/20/25955 Thor Huddlestonr Performed By: #### L 100.0100, L500.4050 #### [facility] [address] [place], [address] Comprehensive Metabolic Profil Normal 133-145 [facility] Comment on above: Result Comment: This specimen has been REJECTED due to Laboratory criteria: Hemolyzed. SUZANNE IN ER has been notified of need of recollection. 03/20/25955 Thor King Performed By: #### L 100.0100, L500.4050 #### [facility] [address] [place], [address] Emergency Department Summary on 03-20-2025 Emergency Department Summary [facility] Medical Records Department [address] [place] [address] Emergency Department Summary 03/20/25 MR#: [id number] Acct: [id number] Name: YULIET DYE PHOEBE Rep #: [id number] : 2000 24 From: Jasmina Arroyo MD [...] department twice and was referred up to [facility] to see a neurologist who ordered MRI [...] spasms. States this is new for her. [facility] Medical History Heart murmur Numbness Home [...] with 1+ (more content not included)... Normal [facility] Magnesiumon 03-20-2025 Magnesium [Mass/Vol] 2.2 mg/dL Normal 1.5-2.[address] [facility] Comment on above: Order Comment: SHERITA West. PREVIOUS SPECIMEN REJECTED DUE TO SPECIMEN BEING HEMOLYZED. 03/20/25 0957 Thor King. Performed By: #### L 501.5200, L500.4050 #### [facility] [address] [place], [address] ,Urineon 03-20-2025 Beta HCG ( test) Ql (U) Negative Normal [facility] Comment on above: Result Comment: Very dilute urine specimens, as indicated by a low specific gravity, may not contain hospital sales representative levels of hCG. If is still suspected, a first morning urine specimen should be collected 48 hours later and tested. Performed By: #### L 400.7600, L400.0001 #### [facility] [address] [place], [address] Progress Noteson 03-20-2025 Store Sales Leader Authentication Interface Message Text Chart reviewed. Ms. [...] Hernandez MD MA Department of Neurological Surgery [id number] [facility] [place], [address] Normal [facility] Urinalysis, Completeon 03-20 BACTERIA 1+ /hpf Normal None Seen [facility] Comment on above: Order Comment: CLEAN CATCH Performed By: #### L 400.7600, L400.0001 #### [facility] [address] [place], [address] EPI,SQUAMOUS 0-5 SEEN Normal 5-10 [facility] Comment on above: Order Comment: CLEAN CATCH Performed By: #### L 400.7600, L400.0001 #### [facility] [address] [place], [address] WBC 0-5 SEEN Normal 0-5 [facility] Comment on above: Order Comment: CLEAN CATCH Performed By: #### L 400.7600, L400.0001 #### [facility] [address] [place], [address] Mucus Ql (Urine sed) 0 SEEN Normal [facility] Comment on above: Order Comment: CLEAN CATCH Performed By: #### L 400.7600, L400.0001 #### [facility] [address] [place], [address] RBC 0 SEEN Normal 0-5 [facility] Comment on above: Order Comment: CLEAN CATCH Performed By: #### L 400.7600, L400.0001 #### [facility] [address] [place], [address] CT C-SPINE W/O CONTRASTon CT C-SPINE W/O [...] agree with the resident's interpretation. Normal [facility] ED Noteson 03-18-2025 Store Sales Leader Authentication Interface Message Text Pt signed AMA form with Dr Car Normal [facility] Provider Noteson 03-18-20 Store Sales Leader Authentication Interface Message Text I received sign out on the patient. She wants to leave AMA, this was discussed with neurosurgery team. She will follow up with them. She has medical decision making capacity and understands the risks of leaving AMA. Form completed. Javy Car MD Normal [facility] Store Sales Leader Authentication Interface Message Text The patient was signed out to me and is accepted to NS service. Normal [facility] MR C-SPINE W/+W/Oon 03-18-20 MR C-SPINE [...] agree with the resident's interpretation. Normal [facility] AUTOIMMUNE MULTIPLEX PANELon 03-17-2025 MINA SCREEN Negative Normal Negative [facility] Comment on above: Order Comment: Dominick arhtur Agency Address Site ID: AMD Name[facility] Address: [id number] [place] [address] Dr [place], [place] Director: Carlo Duke M.D.,PhD Performed By: #### O LIGO, IGG INDEX #### [facility] Pathology [address] [facility] [address] [place] [address] BASIC METABOLIC PANELon - Anion gap [Moles/Vol] 15 mmol/L Normal - [facility] Comment on above: Performed By: #### O LIGO, IGG INDEX #### [facility] Pathology [address] [facility] [place], [place] Calcium [Mass/Vol] 9.6 mg/dL Normal 8.6-10.3 [facility] Comment on above: Performed By: #### O LIGO, IGG INDEX #### [facility] [address] [facility] [place], [place] Chloride [Moles/Vol] 106 mmol/L Normal 98-107 [facility] Comment on above: Performed By: #### O LIGO, IGG INDEX #### [facility] [address] [facility] [place], [place] CO2 [Moles/Vol] 24 mmol/L Normal 21-31 [facility] Comment on above: Performed By: #### O LIGO, IGG INDEX #### [facility] [address] [facility] [place], [place] Creatinine [Mass/Vol] 0.74 mg/dL Normal 0.60-1.20 [facility] Comment on above: Performed By: #### O LIGO, IGG INDEX #### [facility] [address] [facility] [place], [place] ESTIMATED GFR (CKD-EPI) 116 mL/min/1.73sqm Normal >=60 [facility] Comment on above: Result Comment: 2020 [...] Inclusion of Race in Diagnosing Kidney Disease. [place] Journal of Kidney Diseases 2021;79(2):268-88.e1. 2. N Engl J Med 1 Vol. 385 Issue 19 Pages 0176-1913 Performed By: #### O LIGO, IGG INDEX #### [facility] [address] [facility] [place], [place] Glucose [Mass/Vol] 93 mg/dL Normal 74-109 [facility] Comment on above: Performed By: #### O LIGO, IGG INDEX #### [facility] [address] [facility] [place], [place] Potassium [Moles/Vol] 3.8 mmol/L Normal 3.5-5.0 [facility] Comment on above: Performed By: #### O CONNOR, IGG INDEX #### [facility] Pathology [address] [place] [address] [place], [place] Sodium [Moles/Vol] 141 mmol/L Normal 136-[address] [facility] Comment on above: Performed By: #### O CONNOR, IGG INDEX #### [facility] Pathology [address] [place] [address] [place], [place] Urea nitrogen [Mass/Vol] 9 mg/dL Normal 7-[address] [facility] Comment on above: Performed By: #### O CONNOR, IGG INDEX #### [facility] Pathology [address] [place] [address] Dr [place], [place] C-REACTIVE PROTEINon 025 CRP 0.9 mg/dL High <0.[address] [facility] Comment on above: Performed By: #### Bianca RYAN, IGG INDEX #### [facility] Pathology [address] [place] [address] [place], [place] CBC WITH DIFFERENTIALon 02-19 Basophils (Bld) [#/Vol] 0.07 10*3/uL Normal 0.00-0.[address] [facility] Comment on above: Performed By: #### O CONNOR, IGG INDEX #### [facility] Pathology [address] [place] [address] [place], [place] Basophils/100 WBC (Bld) 0.6 % Normal <=1.9 T [facility] Comment on above: Performed By: #### O LIGBianca, IGG INDEX #### [facility] Pathology [address] [place] [address] Dr [place], [place] Eosinophils (Bld) [#/Vol] 0.05 10*3/uL Normal 0.00-0.[address] [facility] Comment on above: Performed By: #### O LIGBianca, IGG INDEX #### [facility] Pathology [address] [place] [address] Dr [place], [place] Eosinophils/100 WBC (Bld) 0.4 % Normal 0.1-4.[address] [facility] Comment on above: Performed By: #### O LIGBianca, IGG INDEX #### [facility] Pathology [address] [facility] [place], [place] Erythrocyte distribution width (RBC) [Ratio] 13.1 % Normal 11.5-14.[address] [facility] Comment on above: Performed By: #### O LIGO, IGG INDEX #### [facility] Pathology [address] [place] [address] [place], [place] Hematocrit (Bld) [Volume fraction] 40.1 % Normal 36.0-46.[address] [facility] Comment on above: Performed By: #### O LIGO, IGG INDEX #### [facility] Pathology [address] [place] [address] [place], [place] Hemoglobin (Bld) [Mass/Vol] 13.8 g/dL Normal 12.0-15.[address] [facility] Comment on above: Performed By: #### O LIGO, IGG INDEX #### [facility] Pathology [address] [place] [address] Dr [place], [place] Lymphocytes (Bld) [#/Vol] 3.12 10*3/uL Normal 1.00-4.[address] [facility] Comment on above: Performed By: #### O LIGO, IGG INDEX #### [facility] Pathology [address] [place] [address] [place], [place] Lymphocytes/100 WBC (Bld) 26.8 % Normal 24.0-44.[address] [facility] Comment on above: Performed By: #### O LIGO, IGG INDEX #### [facility] Pathology [address] [place] [address] [place], [place] MCH (RBC) [Entitic mass] 30.4 pg Normal 26.0-34.[address] [facility] Comment on above: Performed By: #### O LIGO, IGG INDEX #### [facility] Pathology [address] [place] [address] [place], [place] MCHC (RBC) [Mass/Vol] 34.5 g/dL Normal 32.0-35.[address] [facility] Comment on above: Performed By: #### O LIGO, IGG INDEX #### [facility] Pathology [address] [place] [address] Dr [place], [place] MCV (RBC) [Entitic vol] 88 fL Normal 80-100 T [facility] Comment on above: Performed By: #### O LIGO, IGG INDEX #### [facility] Pathology [address] [place] [address] [place], [place] MONOCYTE DISTRIBUTION WIDTH 17 Normal <=20 The [facility] Comment on above: Performed By: #### O LIGO, IGG INDEX #### [facility] Pathology [address] [place] [address] [place], [place] Monocytes (Bld) [#/Vol] 0.51 10*3/uL Normal 0.20-1.00 The [facility] Comment on above: Performed By: #### O LIGO, IGG INDEX #### [facility] Pathology [address] [place] [address] [place], [place] Monocytes/100 WBC (Bld) 4.4 % Normal 2.0-11.0 [facility] Comment on above: Performed By: #### O LIGO, IGG INDEX #### [facility] Pathology [address] [place] [address] [place], [place] Neutrophils (Bld) [#/Vol] 7.90 10*3/uL Normal 1.50-8.00 The [facility] Comment on above: Performed By: #### O LIGO, IGG INDEX #### [facility] Pathology [address] [place] [address] [place], [place] Neutrophils/100 WBC (Bld) 67.8 % Normal 31.0-76.[address] [facility] Comment on above: Performed By: #### O LIGO, IGG INDEX #### [facility] Pathology [address] [place] [address] [place], [place] Platelet mean volume (Bld) [Entitic vol] 7.7 fL Normal 7.5-11.2 The [facility] Comment on above: Performed By: #### O LIGO, IGG INDEX #### [facility] Pathology [address] [place] [address] [place], [place] Platelets (Bld) [#/Vol] 301 10*3/uL Normal 150-[address] [facility] Comment on above: Performed By: #### O LIGO, IGG INDEX #### [facility] Pathology [address] [place] [address] [place], [place] RBC (Bld) [#/Vol] 4.55 10*6/uL Normal 4.00-5.20 [facility] Comment on above: Performed By: #### O CONNOR, IGG INDEX #### [facility] Pathology [address] [facility] [address] [place], [place] WBC (Bld) [#/Vol] 11.6 10*3/uL High 4.5-11.5 [facility] Comment on above: Performed By: #### O CONNOR, IGG INDEX #### [facility] Pathology [address] [facility] Dr [place], [place] Consultson 03-17-2025 [employer] Authentication Interface Message Text SPINE H AND [...] pleasant and cooperative Uppers: R Deltoids/Biceps/Tric eps/Wrist ext/mail opener/interosseou s - 5/5 L Deltoids/Biceps/Tric eps/Wrist ext/mail opener/interosseou s - 5/5 Evidence of well healed [...] myelopathy. Zaida Nix PA-C Neurosurgery Service Pager [phone] [1] No past medical history on file. [2] No past surgical history on file. [3] No family history on file. [4] No Known Allergies Normal [facility] ED Provider Levy 03-17-20 [employer] Authentication Interface Message Text EMERGENCY DEPARTMENT - [...] Types: Cigarettes Smokeless tobacco: Never Normal [facility] ERYTHROCYTE SEDIMENTATION RA Zeinab 03-17-2025 ESR (Bld) [Velocity] 22 mm/h Normal <=30 [facility] Comment on above: Performed By: #### O LIGO, IGG INDEX #### [facility] [address] [facility] [place], [place] HIV 1 and 2 Ab and HIV 1 p24 Ag panel IAon 03-17-2025 HIV AG-AB SCREEN Non-Reactive Normal Non-Reactive [facility] Comment on above: Order Comment: Dmoinick arthur Agency Address Site ID: AMD Name: [facility] Address: [address] [place] [address] [place], [place] Director: Carlo Duke M.D.,PhD Result Comment: No l aboratory evidence for HIV Infection. Negative result does not rule out acute HIV infection. If acute HIV infection is suspected, recommend ordering an HIV-1 RNA quanitification test. Performed By: #### O LIGO, IGG INDEX #### [facility] Pathology [address] [facility] [place], [place] LYME DISEASE AB WITH REFLEX TO BLOT (IGG, IGM)on 03-17-2025 LYME AB SCREEN <0.[address] [facility] Comment on above: Order Comment: Dominick arthur Agency Address Site ID: QPT Name: [facility] Address: Csico Cardo[address] , [address] [place] [id number] Director: Kamlesh Guzmán MD Result Comment: Inde [...] apparent. Performed By: #### L KIMMY Hinojosa ####[facility] [address] [place], [place] MR C-SPINE W/Oon 03-17-2025 MR C-SPINE [...] agree with the resident's interpretation. Normal [facility] MR T-SPINE W/Oon 03-17-2025 MR T-SPINE [...] cord signal abnormality. 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 050 to 3.700 uIU/mL Second Trimester: 0. 310 to 4.350 uIU/mL Third Trimester: 0. 410 to 5.180 uIU/mL Performed By: #### O CONNOR, IGG INDEX #### [facility] [address] [facility] [address] [place], [place] VITAMIN B12 (CYANOCOBALAMIN) on 03-17-2025 Cobalamin (Vitamin B12) [Mass/Vol] 366 pg/mL Normal 180-914 [facility] Comment on above: Order Comment: Dominick arthur Agency Address Site ID: AMD Name: [facility] Address: [address] [place] [address] Dr [place], [place] Director: Carlo Duke M.D.,PhD Performed By: #### O CONNOR, IGG INDEX #### [facility] [address] [facility] Dr [place], [place] Relevant diagnostic tests/la boratory data Narrativeon 03-12-2025 Fall risk assessment no [employer] Work Phone: MEDS REVIEW Documentation of current medications (procedure) [employer] Work Phone: MEDS REVIEWD Medications reviewed without changes [employer] Work Phone: MRI HX of the lumbar spine on 03/05/2025 at [facility] [employer]. Work Phone: XRAY HX of the lumbar spine on 03/04/2025 at [facility] [employer]. Work Phone: Relevant diagnostic tests/la boratory data Narrativeon 03-04-2025 Fall risk assessment no [employer] Work Phone: MEDS REVIEW Done [employer] Work Phone: MEDS REVIEWD Medications reviewed with changes [employer] Work Phone: Laboratory - Chemistry and C hemistry - challengeon 03-03-2025 Cobalamin (Vitamin B12) [Mass/Vol] 471 pg/mL Normal 232 - 1245 pg/mL [facility] Work Phone: Folate [Mass/Vol] 6.6 ng/mL Normal [facility]; [facility] Work Phone: Laboratory - Hematology and Cell countson 03-03-2025 HbA1c (Bld) [Mass fraction] 5.5 % Normal 4.8 - 5.6 % [facility] Work Phone: Bedside Glucoseon 02-27-2025 FINGERSTICK GLU 83 mg/dL Normal 74-106 [facility] Comment on above: Result Comment: OCTAVIA BRANDON OF PATIENT CARE PER NURSING PROTOCOL Performed By: #### L 501.080 ####[facility] [address] [facility] [place], [address] Emergency Department Summary on 02-27-2025 Emergency Department Summary [facility] Medical Records Department [address] [place] [address] Emergency Department Summary 02/27/25 MR#: [id number] Acct: [id number] Name: YULIET DYE PHOEBE Rep #: [id number] : 2000 24 From: Collin Cloud DO [...] the past 7 to 10 days. Psychiatric: [facility] Medical History (Updated 02/27/25 @ 16:07 by [...] signs or (more content not included)... Normal [facility] Glucose measurement at [facility] deOrdered By: ED PROVIDER on 02-27-2025 Glucose [Mass/Vol] 83 mg/dL 74-106 [facility] Comment on above: MANAGEMENT OF PATIEN T CARE PER NURSING PROTOCOL 12 Lead EKGon 02-21-2025 12 Lead EKG [facility] Cardiovascular Services [address] [place] [address] 12 Lead EKG 02/21/25 0419 MR#: [id number] Acct: [id number] Name: YULIET DYE PHOEBE Rep #: [id number] : 2000 24 From: Huyen Chowdhury MD [...] ECG Confirmed by AARON HADLEY, DIA ([id number]), editorial intern SERGE DAVIS ([id number]) on 02/23/2025 6:32:42 AM Referred By: Confirmed By: DIA CHOWDHURY MD 02/23/25 0632 Date Huyen Chowdhury MD CC: Dr. Matheus Santamaria MD; No Primary Care Physician Signed Normal [facility] Absolute lymphocyte countOrd ered By: Matheus Santamaria on 02-21-2025 Lymphocytes Auto (Unsp spec) [#/Vol] 3.85 10*3/uL 0.83-4.51 [facility] Absolute neutrophil countOrd ered By: Matheus Santamaria on 02-21-2025 Neutrophils (Bld) [#/Vol] 5.1 10*3/uL 2.0-7.7 [facility] Anion gap in Serum or Plasma Ordered By: Matheus Santamaria on 02-21-2025 Anion gap [Moles/Vol] 13 mmol/L - [facility] Automated lymphocyte count a s percentage of total leukocytesOrdered By: Matheus Santamaria on 02-21-2025 Lymphocytes/100 WBC Auto (Unsp spec) 39.2 % [facility] BUN/creatinine ratioOrdered By: Matheus Santamaria on 02-21-2025 Urea nitrogen/Creatinine [Mass ratio] 17.1 mg/mg - [facility] Basic Metabolic Profile (BMP )on 02-21-2025 BUN/CRE 17.1 RATIO Normal 10-20 [facility] Comment on above: Performed By: #### L 501.5200, L100.0100, L500.2500 ####[facility] [address] [place], [address] Calcium [Mass/Vol] 9.3 mg/dL Normal 7.6-11.0 [facility] Comment on above: Performed By: #### L 501.5200, L100.0100, L500.2500 ####[facility] [address] [place], [address] Chloride [Moles/Vol] 104 mmol/L Normal 98-[address] [facility] Comment on above: Performed By: #### L 501.5200, L100.0100, L500.2500 ####[facility] [address] [place], [address] CO2 [Moles/Vol] 23.5 mmol/L Normal 21.0-32.0 [facility] Comment on above: Performed By: #### L 501.5200, L100.0100, L500.2500 ####[facility] [address] [place], [address] Creatinine [Mass/Vol] 0.70 mg/dL Normal 0.70-1.20 [facility] Comment on above: Performed By: #### L 501.5200, L100.0100, L500.2500 ####[facility] [address] [place], [address] ECRCL 145.08 ml/min Normal 50-250 [facility] Comment on above: Performed By: #### L 501.5200, L100.0100, L500.2500 ####[facility] [address] [place], [address] GAP 13 Normal 5-15 [facility] Comment on above: Performed By: #### L 501.5200, L100.0100, L500.2500 ####[facility] [address] [place], [address] GFR/1.73 sq M.predicted among non-blacks MDRD (S/P/Bld) [Vol rate/Area] 124 mL/min/{1.73_m2} Normal >60 [facility] Comment on above: Result Comment: mL/m in/1.73m2 CKD-EPI Creatinine Equation (2020) Performed By: #### L 501.5200, L100.0100, L500.2500 ####[facility] [address] [place], [address] Glucose [Mass/Vol] 122 mg/dL High 70-99 [facility] Comment on above: Performed By: #### L 501.5200, L100.0100, L500.2500 ####[facility] [address] [place], [address] Potassium [Moles/Vol] 3.7 mmol/L Normal 3.3-5.1 [facility] Comment on above: Performed By: #### L 501.5200, L100.0100, L500.2500 ####[facility] [address] [place], [address] Sodium [Moles/Vol] 140 mmol/L Normal 133-145 [facility] Comment on above: Performed By: #### L 501.5200, L100.0100, L500.2500 ####[facility] [address] [place], [address] Urea nitrogen [Mass/Vol] 12 mg/dL Normal 4-19 [facility] Comment on above: Performed By: #### L 501.5200, L100.0100, L500.2500 ####[facility] [address] [place], [address] Basophil percentageOrdered B y: Matheus Santamaria on 02-21-2025 Basophils/100 WBC (Bld) 0.5 % 0-1 W [facility] Bilirubin Test strip Ql (U)O rdered By: Mathues Santamaria on 02-21-2025 Bilirubin Ql (U) Negative Negative [facility] Brain/Head without Contrasto n 02-21-2025 Brain/Head without Contrast [facility] Imaging Services [address] [place], [place] [address] Brain/Head without Contrast MR#: [id number] Acct: [id number] Name: YULIET DYE PHOEBE Rep #: [id number] : 2000 F 24 From: Tash quintero MD PCP: Care Physician,No Primary Status: REG ER Study: Brain/Head without Contrast Date of Exam: 09/12 Exam# [id number] Ordering Dr: Matheus Santamaria MD PROCEDURE: BRAIN/HEAD [...] CT study for the brain. Reading [facility] CC: Dr. Matheus Santamaria MD; No Primary Care Physician Phys Assistant: Signed Normal [facility] CBC W/Diff, Automatedon 10-0 4-2024 Absolute Lymph 3.85 X10 3/uL Normal 0.83-4.51 [facility] Comment on above: Performed By: #### L 501.5200, L100.0100, L500.2500 #### [facility] [address] [place], [address] Absolute Neut 5.1 X10 3/uL Normal 2.0-7.7 [facility] Comment on above: Performed By: #### L 501.5200, L100.0100, L500.2500 #### [facility] [address] [place], [address] Basophils/100 WBC (Bld) 0.5 % Normal 0-1 [facility] Comment on above: Performed By: #### L 501.5200, L100.0100, L500.2500 #### [facility] [address] [place], [address] Eosinophils/100 WBC (Bld) 1.0 % Normal 0-5 [facility] Comment on above: Performed By: #### L 501.5200, L100.0100, L500.2500 #### [facility] [address] [place], [address] Erythrocyte distribution width (RBC) [Ratio] 12.3 % Normal 11.6-14.6 [facility] Comment on above: Performed By: #### L 501.5200, L100.0100, L500.2500 #### [facility] [address] [place], [address] Hematocrit (Bld) [Volume fraction] 37.2 % Normal 37-47 [facility] Comment on above: Performed By: #### L 501.5200, L100.0100, L500.2500 #### [facility] [address] [place], [address] Hemoglobin (Bld) [Mass/Vol] 12.4 g/dL Normal 12.0-15.0 [facility] Comment on above: Performed By: #### L 501.5200, L100.0100, L500.2500 #### [facility] [address] [place], [address] IG% 0.300 Normal 0.0-0.9 [facility] Comment on above: Result Comment: IG% - Immature Granulocytes (promyelocytes, myelocytes and metamyelocytes) > 1% indicates that a LEFT SHIFT is Present. Performed By: #### L 501.5200, L100.0100, L500.2500 #### [facility] [address] [place], [address] Lymphocytes/100 WBC (Bld) 39.2 % Normal 19-41 [facility] Comment on above: Performed By: #### L 501.5200, L100.0100, L500.2500 #### [facility] [address] [place], [address] MCH (RBC) [Entitic mass] 29.5 pg Normal 27.0-32.0 [facility] Comment on above: Performed By: #### L 501.5200, L100.0100, L500.2500 #### [facility] [address] [place], [address] MCHC (RBC) [Mass/Vol] 33.3 g/dL Normal 32-36 [facility] Comment on above: Performed By: #### L 501.5200, L100.0100, L500.2500 #### [facility] [address] [place], [address] MCV (RBC) [Entitic vol] 88.6 fL Normal 81-99 [facility] Comment on above: Performed By: #### L 501.5200, L100.0100, L500.2500 #### [facility] [address] [place], [address] Monocytes/100 WBC (Bld) 7.4 % Normal 0-10 [facility] Comment on above: Performed By: #### L 501.5200, L100.0100, L500.2500 #### [facility] [address] [place], [address] Neutrophils/100 WBC (Bld) 51.6 % Normal 47-70 [facility] Comment on above: Performed By: #### L 501.5200, L100.0100, L500.2500 #### [facility] [address] [place], [address] Nucleated RBC (Bld) [#/Vol] 0 10*3/uL Normal 0-5 [facility] Comment on above: Performed By: #### L 501.5200, L100.0100, L500.2500 #### [facility] [address] [place], [address] Platelet mean volume (Bld) [Entitic vol] 9.6 fL Normal 6.2-12.0 [facility] Comment on above: Performed By: #### L 501.5200, L100.0100, L500.2500 #### [facility] [address] [place], [address] Platelets (Bld) [#/Vol] 305 10*3/uL Normal 150-450 [facility] Comment on above: Performed By: #### L 501.5200, L100.0100, L500.2500 #### [facility] [address] [place], [address] RBC (Bld) [#/Vol] 4.20 10*6/uL Normal 4.2-5.4 [facility] Comment on above: Performed By: #### L 501.5200, L100.0100, L500.2500 #### [facility] [address] [place], [address] RDW SD 39.8 fl Normal 35.1-43.9 [facility] Comment on above: Performed By: #### L 501.5200, L100.0100, L500.2500 #### [facility] [address] [place], [address] WBC (Bld) [#/Vol] 9.8 10*3/uL Normal 4.4-11.0 [facility] Comment on above: Performed By: #### L 501.5200, L100.0100, L500.2500 #### [facility] [address] [place], [address] Carbon dioxide, total [Moles /volume] in Central venous bloodOrdered By: Matheus Santamaria on 02-21-2025 CO2 [Moles/Vol] 23.5 mmol/L 21.0-32.0 [facility] Chest PA and Lateralon 02-21 Chest PA and Lateral [facility] Imaging Services [address] [place] [address] Chest PA and Lateral MR#: [id number] Acct: [id number] Name: YULIET DYE PHOEBE Rep #: [id number] : 2000 F 24 From: Tash quintero MD PCP: Care Physician,No Primary Status: REG ER Study: Chest PA and Lateral Date of Exam: 02/21/25 Exam# [id number] Ordering Dr: Matheus Santamaria MD PROCEDURE: CHEST [...] No evidence for acute abnormality. Reading Location[facility] [address] CC: Dr. Matheus Santamaria MD; No Primary Care Physician Phys Assistant: Signed Normal [facility] Chloride assayOrdered By: Ava Santamaria on 02-21-2025 Chloride [Moles/Vol] 104 mmol/L 98-[address] [facility] Emergency Department Summary on 02-21-2025 Emergency Department Summary [facility] Medical Records Department [address] [place] [address] Emergency Department Summary 02/21/25 MR#: [id number] Acct: [id number] Name: YULIET DYE PHOEBE Rep #: [id number] : 2000 24 From: Matheus Santamaria MD [...] symmetric reflexes downgoing toes no clonus Normal phmbrs-rv-lzqo and kqfh-pr-bosr bilaterally Sensorium / Orientation: awake and alert [...] head C (more content not included)... Normal [facility] Eosinophil percentageOrdered By: Matheus Santamaria on 02-21-2025 Eosinophils/100 WBC (Bld) 1.0 % 0-5 [facility] Erythrocyte distribution wid th ratioOrdered By: Matheus Santamaria on 02-21-2025 Erythrocyte distribution width (RBC) [Ratio] 12.3 % 11.6-14.6 [facility] Erythrocyte distribution wid th standard deviationOrdered By: Matheus Santamaria on 02-21-2025 Erythrocyte distribution width (RBC) [Ratio] 39.8 fl 35.1-43.9 [facility] Glomerular filtration rate ( GFR) estimation/1.73 sq m using serum, plasma, or whole bOrdered By: Matheus Santamaria on 02-21-2025 GFR/1.73 sq M.predicted among non-blacks MDRD (S/P/Bld) [Vol rate/Area] 124 mL/min/{1.73_m2} >60 [facility] Comment on above: mL/min/1.73m2 CKD-EP I Creatinine Equation (2020) Hematocrit Auto (Bld) [Volum e fraction]Ordered By: Matheus Santamaria on 02-21-2025 Hematocrit (Bld) [Volume fraction] 37.2 % 37-47 [facility] Hemoglobin measurementOrdere d By: Matheus Santamaria on 02-21-2025 Hemoglobin (Bld) [Mass/Vol] 12.4 g/dL 12.0-15.0 [facility] Immature granulocytes/100 WB C Auto (Bld)Ordered By: Matheus Santamaria on 02-21-2025 Immature granulocytes/100 WBC (Bld) 0.300 % 0.0-0.9 [facility] Comment on above: IG% - Immature Granu locytes (promyelocytes, myelocytes and metamyelocytes) > 1% indicates that a LEFT SHIFT is Present. Ketones Test strip Ql (U)Ord ered By: Matheus Santamaria on 02-21-2025 Ketones Ql (U) Negative Negative [facility] Lactic Acidon 02-21-2025 Lactate [Moles/Vol] 1.3 mmol/L Normal 0.0-2.0 [facility] Comment on above: Order Comment: Y Performed By: #### L 503.6005 ####[facility] [id number] [place], [place], [address] Lactic acid measurementOrder ed By: Matheus Santamaria on 02-21-2025 Lactate [Moles/Vol] 1.3 mmol/L 0.0-2.0 [facility] MCV (mean corpuscular volume ) determinationOrdered By: Matheus Santamaria on 02-21-2025 MCV (RBC) [Entitic vol] 88.6 fL 81-99 [facility] Magnesiumon 02-21-2025 Magnesium [Mass/Vol] 2.2 mg/dL Normal 1.5-2.[address] [facility] Comment on above: Performed By: #### L [id number], L100.0100, L500.2500 ####[facility] [id number] [place], [place], [address] Magnesium measurement (mass/ volume)Ordered By: Matheus Santamaria on 02-21-2025 Magnesium (Unsp spec) [Mass/Vol] 2.2 mg/dL 1.5-2.2 [facility] Mean corpuscular hemoglobin (MCH) determinationOrdered By: Matheus Santamaria on 02-21-2025 MCH (RBC) [Entitic mass] 29.5 pg 27.0-32.0 [facility] Mean corpuscular hemoglobin concentration (MCHC) determinationOrdered By: Matheus Santamaria on 02-21-2025 MCHC (RBC) [Mass/Vol] 33.3 g/dL 32-36 [facility] Mean platelet volume determi nationOrdered By: Matheus Santamaria on 02-21-2025 Platelet mean volume (Bld) [Entitic vol] 9.6 fL 6.2-12.0 [facility] Microscopic analysis of urin e for red blood cells (RBC)Ordered By: Matheus Santamaria on 02-21-2025 Microscopic analysis of urine for red blood cells (RBC) 0 SEEN /hpf 0-5 [facility] Monocyte percentageOrdered B y: Matheus Santamaria on 02-21-2025 Monocytes/100 WBC (Bld) 7.4 % 0-10 [facility] Mucus LM Ql (Urine sed)Order ed By: Matheus Santamaria on 02-21-2025 Mucus Ql (Urine sed) 0 SEEN /hpf [facility] Neutrophil percentageOrdered By: Matheus Santamaria on 02-21-2025 Neutrophils/100 WBC (Bld) 51.6 % 47-70 [facility] Nitrite Test strip Ql (U)Ord ered By: Matheus Santamaria on 02-21-2025 Nitrite Ql (U) Negative Negative [facility] Nucleated red blood cell per centageOrdered By: Matheus Santamaria on 02-21-2025 Nucleated RBC/100 WBC (Bld) [Ratio] 0 % 0-5 [facility] Platelet countOrdered By: Ava Santamaria on 02-21-2025 Platelets (Bld) [#/Vol] 305 10*3/uL 150-450 [facility] Potassium measurement (mass/ volume)Ordered By: Matheus Santamaria on 02-21-2025 Potassium (Unsp spec) [Mass/Vol] 3.7 mmol/L 3.3-5.1 [facility] Protein Test strip Ql (U)Ord ered By: Matheus Santamaria on 02-21-2025 Protein Ql (U) 15 mg/dl High Negative [facility] RBC Auto (Bld) [#/Vol]Ordere d By: Matheus Santamaria on 02-21-2025 RBC (Bld) [#/Vol] 4.20 10*6/uL 4.2-5.4 [facility] Serum creatinine measurement (mass/volume)Ordered By: Matheus Santamaria on 02-21-2025 Creatinine [Mass/Vol] 0.70 mg/dL 0.70-1.20 [facility] Serum glucose measurement (m ass/volume)Ordered By: Matheus Santamaria on 02-21-2025 Glucose [Mass/Vol] 122 mg/dL High 70-99 [facility] Serum or plasma calcium leandra urement (mass/volume)Ordered By: Matheus Santamaria on 02-21-2025 Calcium [Mass/Vol] 9.3 mg/dL 7.6-11.0 [facility] Serum or plasma urea nitroge n measurement (mass/volume)Ordered By: Matheus Santamaria on 02-21-2025 Urea nitrogen [Mass/Vol] 12 mg/dL 4-19 [facility] Sodium levelOrdered By: Lennox Santamaria on 02-21-2025 Sodium [Moles/Vol] 140 mmol/L 133-145 [facility] Squamous epithelial cells de tection in urine sediment by light microscopyOrdered By: Matheus Santamaria on 02-21-2025 Epithelial cells.squamous LM Ql (Urine sed) 0-5 SEEN /hpf - [facility] Urinalysis, Completeon 02-21 EPI,SQUAMOUS 0-5 SEEN Normal 09-27 [facility] Comment on above: Order Comment: CARLOS ENRIQUE TER SPECIMEN Performed By: #### L 400.0001 #### [facility] [address] [facility], [address] BACTERIA 0 SEEN Normal None Seen [facility] Comment on above: Order Comment: CARLOS ENRIQUE TER SPECIMEN Performed By: #### L 400.0001 #### [facility] [address] [place], [address] Mucus Ql (Urine sed) 0 SEEN Normal [facility] Comment on above: Order Comment: CARLOS ENRIQUE TER SPECIMEN Performed By: #### L 400.0001 #### [facility] [address] [place], [address] RBC 0 SEEN Normal 0-5 [facility] Comment on above: Order Comment: CARLOS ENRIQUE TER SPECIMEN Performed By: #### L 400.0001 #### [facility] [address] [place], [place], [address] WBC 0 SEEN Normal 0-5 [facility] Comment on above: Order Comment: CARLOS ENRIQUE DONALDSON SPECIMEN Performed By: #### L 400.0001 #### [facility] [address] [place], [place], [address] Urine clarityOrdered By: Benson Santamaria on 02-21-2025 Clarity (U) Clear Clear [facility] Urine color determinationOrd ered By: Matheus Santamaria on 02-21-2025 Color (U) Yellow Yellow [facility] Urine glucose detectionOrder ed By: Matheus Santamaria on 02-21-2025 Glucose Ql (U) Normal mg/dl Normal [facility] Urine leukocyte esterase det ection by dipstickOrdered By: Matheus Santamaria on 02-21-2025 Leukocyte esterase Test strip Ql (U) Negative Negative [facility] Urine pHOrdered By: Matheus Santamaria on 02-21-2025 pH (U) 6.0 [pH] 5.0 - 8.0 [facility] Urine sediment bacteria coun t by microscopy (number/high power field)Ordered By: Matheus Santamaria on 02-21-2025 Bacteria LM.HPF (Urine sed) [#/Area] 0 /[HPF] None Seen [facility] Urine specific gravity measu rementOrdered By: Matheus Santamaria on 02-21-2025 Specific gravity (U) [Rel density] 1.020 1.002-1.030 [facility] Urine urobilinogen measureme ntOrdered By: Matheus Santamaria on 02-21-2025 Urobilinogen Ql (U) Normal mg/dl Normal [facility] White blood cell (WBC) count Ordered By: Matheus Santamaria on 02-21-2025 WBC (Bld) [#/Vol] 9.8 10*3/uL 4.4-11.0 [facility] White blood cell countOrdere d By: Matheus Santamaria on 02-21-2025 White blood cell count 0 SEEN /hpf 0-5 [facility] Vital Signs Date Time Vital Sign Value Performing Clinician Facility 03-12-2025 08:20-0400 Body height 165 cm Nieves Prescott MD Work Phone: [facility] 03-12-2025 08:20-0400 Body height 165.1 cm Nieves Prescott MD Work Phone: [facility] 03-12-2025 08:20-0400 Body mass index (BMI) [Ratio] 35.74 kg/m2 Nieves Prescott MD Work Phone: [facility] 03-12-2025 08:20-0400 Body weight 97 kg Nieves Prescott MD Work Phone: [facility] 03-12-2025 08:20-0400 Body weight 97.07 kg Nieves Prescott MD Work Phone: [facility] 03-12-2025 08:20-0400 BP SITE #1 Nieves Prescott MD Work Phone: [facility] 03-12-2025 08:20-0400 Diastolic blood pressure 80 mm[Hg] Nieves Prescott MD Work Phone: [facility] 03-12-2025 08:20-0400 Heart rate 97 /min Nieves Prescott MD Work Phone: [facility] 03-12-2025 08:20-0400 HGHTCHNVIS Nieves Prescott MD Work Phone: [facility] 03-12-2025 08:20-0400 Systolic blood pressure 117 mm[Hg] Nieves Prescott MD Work Phone: [facility] 03-12-2025 08:20-0400 VITALSDONE Nieves Prescott MD Work Phone: [facility] 03-04-2025 11:59-0400 Body height 166 cm Stephany SINHA [facility] 03-04-2025 11:59-0400 Body height 166.37 cm Stephany Gregory GAME DESIGNER[facility] 03-04-2025 11:59-0400 Body mass index (BMI) [Ratio] 35.2 kg/m2 Stephany Gregory [facility] 03-04-2025 11:59-0400 Body weight 97 kg Stephany Gregory [facility] 03-04-2025 11:59-0400 Body weight 97.07 kg Stephany Gregory [facility] 03-04-2025 11:59-0400 BP SITE #1 Stephany Gregory [facility] 03-04-2025 11:59-0400 Diastolic blood pressure 73 mm[Hg] Stephany Gregory [facility] 03-04-2025 11:59-0400 Heart rate 98 /min Stephany Gregory [facility] 03-04-2025 11:59-0400 HGHTCHNVIS Stephany Bri [facility] 03-04-2025 11:59-0400 Systolic blood pressure 105 mm[Hg] Stephany Gregory [facility] 03-04-2025 11:59-0400 VITALSDONE Stephanykyree Gregory [facility] 03-03-2025 15:39-0400 Body height 162.56 cm Bryan SCOTT MD Work Phone: [facility] 03-03-2025 15:39-0400 Body mass index (BMI) [Ratio] 37.25 kg/m2 Bryan SCOTT MD Work Phone: [facility].; [facility] 03-03-2025 15:39-0400 Body surface area Derived from formula 2.03 m2 Bryan SCOTT MD Work Phone: [facility] [employer] [facility].; [employer] [facility] 03-03-2025 15:39-0400 Body weight 98.43 kg Bryan SCOTT MD Work Phone: [facility] [employer] [facility] [employer].; [employer] [facility] 03-03-2025 15:39-0400 Diastolic blood pressure 86 mm[Hg] Bryan SCOTT MD Work Phone: [facility] [employer] [facility] [employer].; [employer] [facility]. Comment on above: Patient Position: Sitting; Cuff Location : Left Arm; Cuff Size: Large 03-03-2025 15:39-0400 Heart rate 88 /min Bryan SCOTT MD Work Phone: [facility] [employer] [facility] [employer].; [employer] [facility]. Comment on above: Pattern: Regular 03-03-2025 15:39-0400 Systolic blood pressure 118 mm[Hg] Bryan SCOTT MD Work Phone: [facility] [employer] [facility].; [employer] [facility] [employer] [facility]. Comment on above: Patient Position: Sitting; Cuff Location : Left Arm; Cuff Size: Large 02-27-2025 16:09-0400 Body temperature 98.4 [degF] Dr. Matheus Santamaria MD Work Phone: [facility] 02-27-2025 16:09-0400 Diastolic blood pressure 66 mm[Hg] Dr. Matheus Santamaria MD Work Phone: [facility] 02-27-2025 16:09-0400 Heart rate 88 /min Dr. Matheus Santamaria MD Work Phone: [facility] 02-27-2025 16:09-0400 Respiratory rate 20 /min Dr. Matheus Santamaria MD Work Phone: [facility] 02-27-2025 16:09-0400 SaO2% (BldA) [Mass fraction] 97 % Dr. Matheus Santamaria MD Work Phone: 0(178)918-927008 [place] [address] 02-27-2025 16:09-0400 Systolic blood pressure 107 mm[Hg] Dr. Matheus Santamaria MD Work Phone: 0(704)175-948208 [place] [address] 02-27-2025 14:05-0400 Body height 165.[address] Matheus Santamaria MD Work Phone: 9(651)139-221408 [place] [address] 02-27-2025 14:05-0400 Body mass index (BMI) [Ratio] 36.2 kg/m2 Dr. Matheus Santamaria MD Work Phone: 1(960)194-393908 [place] [address] 02-27-2025 14:05-0400 Body weight 98.[address] Matheus Santamaria MD Work Phone: 8(669)894-254308 [place] [address] 02-21-2025 07:09-0400 Body temperature 97.3 [degF] Dr. Matheus Santamaria MD Work Phone: 3(037)738-027308 [place] [address] 02-21-2025 07:09-0400 Diastolic blood pressure 68 mm[Hg] Dr. Matheus Santamaria MD Work Phone: 0(134)865-201408 [place] [address] 02-21-2025 07:09-0400 Heart rate 103 /min Dr. Matheus Santamaria MD Work Phone: 3(960)411-807408 [place] [address] 02-21-2025 07:09-0400 Respiratory rate 18 /min Dr. Matheus Santamaria MD Work Phone: 5(141)695-707108 [place] [address] 02-21-2025 07:09-0400 SaO2% (BldA) [Mass fraction] 99 % Dr. Matheus Santamaria MD Work Phone: 4(222)666-501908 [place] [address] 02-21-2025 07:09-0400 Systolic blood pressure 109 mm[Hg] Dr. Matheus Santamaria MD Work Phone: 8(543)301-536408 [place] [address] 02-21-2025 03:49-0400 Body height 165.[address] Matheus Santamaria MD Work Phone: 0(272)861-978908 [place] [address] 02-21-2025 03:49-0400 Body mass index (BMI) [Ratio] 36.6 kg/m2 Dr. Matheus Santamaria MD Work Phone: [facility] 02-21-2025 03:49-0400 Body weight 99.[address] Matheus Santamaria MD Work Phone: [facility] 04-10-2017 10:59-0500 Body height 162.56 cm BAYLEE CHONG RN [facility] [employer] [facility].; [facility] [employer] [facility] DepartmentDeal[employer] 04-10-2017 10:59-0500 Body mass index (BMI) [Percentile] Per age and sex 97 % BAYLEE GRATE MARILUZ [facility] [employer] [facility], [employer] [facility], [employer]. 04-10-2017 10:59-0500 Body mass index (BMI) [Ratio] 31.93 kg/m2 BAYLEE GRATE MARILUZ [facility] [employer] [facility], [employer].; [facility] [employer]. 04-10-2017 10:59-0500 Body surface area Derived from formula 1.9 m2 BAYLEE CHONG RN [facility] [employer] [facility], [employer].; [facility] [employer] [facility]M[employer] [employer]. 04-10-2017 10:59-0500 Body weight 84.37 kg BAYLEE CHONG RN [facility] [employer] [facility].; [facility] [employer] [facility]M[employer] [employer]. 04-10-2017 10:59-0500 Diastolic blood pressure 79 mm[Hg] BAYLEE GRATE MARILUZ [facility] [employer] [facility].; [facility] [employer] [facility]M[employer] [employer]. Comment on above: Patient Position: Sitting; Cuff Location : Left Arm; Cuff Size: Standard 04-10-2017 10:59-0500 Heart rate 109 /min BAYLEE CHONG RN [facility] [employer] [facility] [facility] [employer] [facility]M[employer]. Comment on above: Pattern: Regular 04-10-2017 10:59-0500 Systolic blood pressure 115 mm[Hg] BAYLEE GRATE MARILUZ [email or web address]M[employer].; [facility] [employer] [facility]M[employer]. Comment on above: Patient Position: Sitting; Cuff Location : Left Arm; Cuff Size: Standard 05-20-2015 13:04-0500 Body height 162.56 cm Bryan SCOTT MD Work Phone: [employer]; [email or web address]. 05-20-2015 13:04-0500 Body mass index (BMI) [Percentile] Per age and sex 96 % Bryan SCOTT MD Work Phone: [employer]; [email or web address]. 05-20-2015 13:04-0500 Body mass index (BMI) [Ratio] 28.67 kg/m2 Bryan SCOTT MD Work Phone: [employer]; [email or web address]. 05-20-2015 13:04-0500 Body surface area Derived from formula 1.81 m2 Bryan SCOTT MD Work Phone: [employer]; [employer] 05-20-2015 13:04-0500 Body temperature 97.4 [degF] Bryan SCOTT MD Work Phone: [employer]; [email or web address]. Comment on above: Method: Oral 05-20-2015 13:04-0500 Body weight 75.75 kg Bryan SCOTT MD Work Phone: [employer]; [email or web address]. 05-20-2015 13:04-0500 Diastolic blood pressure 77 mm[Hg] Bryan SCOTT MD Work Phone: [employer]; [email or web address]. Comment on above: Patient Position: Sitting; Cuff Location : Left Arm; Cuff Size: Standard 05-20-2015 13:04-0500 Heart rate 105 /min Bryan SCOTT MD Work Phone: [employer]; [employer] Comment on above: Pattern: Regular 05-20-2015 13:04-0500 Systolic blood pressure 114 mm[Hg] Bryan SCOTT MD Work Phone: [employer]; [facility]. Comment on above: Patient Position: Sitting; Cuff Location : Left Arm; Cuff Size: Standard 09-19-2012 11:09-0400 Body height 158.75 cm KARISHMAAmelia Sinha DIPTI [facility] [employer] [facility], [employer] [facility] [employer] [facility], Inc[employer] 09-19-2012 11:09-0400 Body mass index (BMI) [Percentile] Per age and sex 90 % [facility]elia Sinha RESENDEZ [facility].; [facility], [facility]. 09-19-2012 11:09-0400 Body mass index (BMI) [Ratio] 23.4 kg/m2 [facility]Amelia Sinha [facility] CenterDe[facility].; [facility]raction [facility]. 09-19-2012 11:09-0400 Body surface area Derived from formula 1.6 m2 [facility]Am[facility] Sinha [facility] CenterDe[employer]T[facility].; [facility]De[facility]. 09-19-2012 11:09-0400 Body temperature 98.2 [degF] CARI Sinha DIPTI [facility]ardDo[facility] merlin [facility] DepartmentM[employer].; [facility] [employer] [facility], [employer]. Comment on above: Method: Oral 09-19-2012 11:090400 Body weight 58.97 kg KARISHMAAmelia RESENDEZ [facility] [employer] [facility]M[employer].; [facility] [employer] [facility], Inc[employer] 09-19-2012 11:09-0400 Diastolic blood pressure 80 mm[Hg] KARISHMAAmelia Sinha RESENDEZ [facility] [employer] [facility] DepartmentDe[employer] [facility].; [facility] HospitalDeal[facility] Inc. Comment on above: Patient Position: Sitting; Cuff Location : Left Arm; Cuff Size: Standard 09-19-2012 11:09-0400 Heart rate 114 /min KARISHMAAmelia RESENDEZ [facility] [employer] [facility], [employer].; [facility] [employer] [facility], [employer]. Comment on above: Pattern: Regular 09-19-2012 11:09-0400 Systolic blood pressure 117 mm[Hg] [facility] Sin[facility] [employer] [facility] DepartmentDe[employer] [facility].; [facility] [employer] [facility], [employer]. Comment on above: Patient Position: Sitting; Cuff Location : Left Arm; Cuff Size: Standard 04-16-2012 13:04-0500 Body height 158.75 cm Bryan SCOTT MD Work Phone: [employer]; [email or web address]. 04-16-2012 13:04-0500 Body mass index (BMI) [Percentile] Per age and sex 85 % Bryan SCOTT MD Work Phone: [employer]; [email or web address]. 04-16-2012 13:04-0500 Body mass index (BMI) [Ratio] 21.6 kg/m2 Bryan SCOTT MD Work Phone: [employer]; [employer] [facility] 04-16-2012 13:04-0500 Body surface area Derived from formula 1.55 m2 Bryan SCOTT MD Work Phone: [employer]; [email or web address]. 04-16-2012 13:04-0500 Body temperature 98.7 [degF] Bryan SCOTT MD Work Phone: [employer]; [email or web address]. Comment on above: Method: Oral 04-16-2012 13:04-0500 Body weight 54.43 kg Bryan SCOTT MD Work Phone: [employer]; [employer] [facility] 04-16-2012 13:04-0500 Diastolic blood pressure 78 mm[Hg] Bryan SCOTT MD Work Phone: [employer]; [email or web address]. Comment on above: Patient Position: Sitting; Cuff Location : Left Arm; Cuff Size: Large 04-16-2012 13:04-0500 Heart rate 123 /min Bryan SCOTT MD Work Phone: [employer]; [email or web address]. Comment on above: Pattern: Regular 04-16-2012 13:04-0500 Systolic blood pressure 120 mm[Hg] Bryan SCOTT MD Work Phone: [employer]; [email or web address]. Comment on above: Patient Position: Sitting; Cuff Location : Left Arm; Cuff Size: Large 05-08-2011 11:34-0500 Body height 149.86 cm Bryan SCOTT MD Work Phone: [email or web address]. 05-08-2011 11:34-0500 Body mass index (BMI) [Percentile] Per age and sex 85 % Bryan SCOTT MD Work Phone: [employer]; [employer] [facility] [employer]. 05-08-2011 11:34-0500 Body mass index (BMI) [Ratio] 20.8 kg/m2 Bryan SCOTT MD Work Phone: [employer]; [employer] [facility] [employer]. 05-08-2011 11:34-0500 Body surface area Derived from formula 1.39 m2 Bryan SCOTT MD Work Phone: [employer]; [email or web address]. 05-08-2011 11:34-0500 Body temperature 97.1 [degF] Bryan SCOTT MD Work Phone: [employer]; [email or web address]. Comment on above: Method: Oral 05-08-2011 11:34-0500 Body weight 46.72 kg Bryan SCOTT MD Work Phone: [email or web address]. 05-08-2011 11:34-0500 Diastolic blood pressure 60 mm[Hg] Bryan SCOTT MD Work Phone: [employer]; [email or web address]. Comment on above: Patient Position: Sitting; Cuff Location : Left Arm; Cuff Size: Large 05-08-2011 11:34-0500 Systolic blood pressure 116 mm[Hg] Bryan SCOTT MD Work Phone: [employer] [facility] DepartmentNew[employer] [facility]; [employer] [facility] [employer] [facility] DepartmentM[employer]. Comment on above: Patient Position: Sitting; Cuff Location : Left Arm; Cuff Size: Large 06-15-2010 15:39-0500 Body height 144.78 cm Bryan SCOTT MD Work Phone: [email or web address] [email or web address] [facility] DepartmentNew[employer]; [employer] [facility] [employer] [facility] DepartmentM[employer]. 06-15-2010 15:39-0500 Body mass index (BMI) [Percentile] Per age and sex 83 % Bryan SCOTT MD Work Phone: [email or web address] DepartmentNew[employer]; [employer] [facility] [employer] [facility] DepartmentM[employer]. 06-15-2010 15:39-0500 Body mass index (BMI) [Ratio] 19.69 kg/m2 Bryan SCOTT MD Work Phone: [email or web address] [facility] DepartmentNew[employer]; [employer] [facility] [employer] [facility] DepartmentM[employer]. 06-15-2010 15:39-0500 Body surface area Derived from formula 1.29 m2 Bryan SCOTT MD Work Phone: [email or web address] [facility] DepartmentNew[employer]; [employer] [facility] [employer] [facility] DepartmentM[employer]. 06-15-2010 15:39-0500 Body temperature 98.4 [degF] Bryan SCOTT MD Work Phone: [email or web address] DepartmentNew[employer]; [employer] [facility]. Comment on above: Method: Oral 06-15-2010 15:39-0500 Body weight 41.28 kg Bryan SCOTT MD Work Phone: [employer]; [employer] [facility]. 06-15-2010 15:39-0500 Diastolic blood pressure 74 mm[Hg] Bryan CSOTT MD Work Phone: Qumu MitchellSunrise; [employer] [facility] [employer]. Comment on above: Patient Position: Sitting; Cuff Location : Left Arm; Cuff Size: Large 06-15-2010 15:39-0500 Heart rate 125 /min Bryan SCOTT MD Work Phone: [employer].; [email or web address]. Comment on above: Pattern: Regular 06-15-2010 15:39-0500 Systolic blood pressure 113 mm[Hg] Bryan SCOTT MD Work Phone: GVISP 1 [place] [facility] DepartmentM[facility].; [email or web address]. Comment on above: Patient Position: Sitting; Cuff Location : Left Arm; Cuff Size: Large 05-18-2010 16:40-0500 Body height 142.24 cm Bryan SCOTT MD Work Phone: [employer]IE[employer].; [employer] [facility]. 05-18-2010 16:40-0500 Body mass index (BMI) [Percentile] Per age and sex 85 % Bryan SCOTT MD Work Phone: [employer] [facility]. 05-18-2010 16:40-0500 Body mass index (BMI) [Ratio] 19.95 kg/m2 Bryan SCOTT MD Work Phone: [employer].; [employer] [facility]. 05-18-2010 16:40-0500 Body surface area Derived from formula 1.26 m2 Bryan SCOTT MD Work Phone: [employer]; [employer] [facility]. 05-18-2010 16:40-0500 Body temperature 98.5 [degF] Bryan SCOTT MD Work Phone: [employer].; [email or web address]. Comment on above: Method: Oral 05-18-2010 16:40-0500 Body weight 40.37 kg Bryan SCOTT MD Work Phone: [employer].; [email or web address]. 05-18-2010 16:40-0500 Diastolic blood pressure 78 mm[Hg] Bryan SCOTT MD Work Phone: Qumu [email or web address] [place] [facility].; L[employer]BBER[employer] [facility] [employer] [place] [facility] DepartmentM[facility] Arts. Comment on above: Patient Position: Sitting; Cuff Location : Right Arm; Cuff Size: Standard 05-18-2010 16:40-0500 Heart rate 127 /min Bryan SCOTT MD Work Phone: [facility].; [employer] [facility]. Comment on above: Pattern: Regular 05-18-2010 16:40-0500 Systolic blood pressure 131 mm[Hg] Bryan SCOTT MD Work Phone: [employer]IE[employer].; [employer] [facility]. Comment on above: Patient Position: Sitting; Cuff Location : Right Arm; Cuff Size: Standard Encounters Encounter Date Encounter Type Care Provider Facility Start: 03-26-2025 End: 03-26-2025 [facility] Start: 03-23-2025 ambulatory [facility] Start: 03-23-2025 End: 03-24-2025 ambulatory FLORIDALMA VILLELA [facility] Start: 03-23-2025 End: 03-23-2025 ambulatory [facility]ER [facility] Start: 03-20-2025 End: 03-20-2025 Emergency department patient visit Jasmina Arroyo Facility:[facility] Start: 03-19-2025 Visit out of hours Nieves Armijo MD Work Phone: [employer] [facility] Work Phone: Start: 03-17-2025 End: 03-18-2025 Emergency department patient visit UNKNOWN PROVIDER [facility] Start: 03-17-2025 End: 03-17-2025 ambulatory GOOD MICHEL [facility] Start: 03-17-2025 Emergency department patient visit UNKNOWN PROVIDER Facility:[facility] Start: 03-12-2025 In-person encounter Nieves herman MD Work Phone: [facility] Work Phone: Start: 03-06-2025 End: 03-06-2025 Historical Summary Bryan SCOTT MD Work Phone: [facility] [employer] Start: 03-06-2025 End: 03-06-2025 Results Review Bryan SCOTT MD Work Phone: [facility] [employer] Start: 03-04-2025 Visit out of hours Stephany Gregory APRN [employer] Work Phone: Start: 03-04-2025 In-person encounter Stephany Gregory APR N-[employer] [facility] Work Phone: Start: 03-03-2025 End: 03-03-2025 Office outpatient visit 15 minutes Bryan SCOTT MD Work Phone: [employer] [facility] [employer] Start: 03-03-2025 Follow-up encounter Bryan BLACK MD Work Phone: [employer] Start: 02-27-2025 End: 02-27-2025 Emergency department patient visit Dr. Collin Cloud DO -Emergency Department Work Phone: Start: 02-21-2025 End: 02-21-2025 Emergency department patient visit Dr. Matheus Santamaria MD Work Phone: -Emergency Department Work Phone: Start: 04-10-2017 End: 04-10-2017 Office outpatient visit 25 minutes Bryan SCOTT MD Work Phone: [facility] [employer] Start: 05-20-2015 End: 05-20-2015 Office outpatient visit 10 minutes Bryan SCOTT MD Work Phone: [employer] Start: 02-05-2013 End: 02-05-2013 Medication Refill/Order Bryan SCOTT MD Work Phone: [employer] Start: 09-19-2012 End: 09-19-2012 Patient encounter procedure Bryan SCOTT MD Work Phone: [facility] [employer] [place] [facility] DepartmentNew[facility] Start: 04-16-2012 End: 04-16-2012 Patient encounter procedure Bryan SCOTT MD Work Phone: [employer] [facility] Start: 05-08-2011 End: 05-08-2011 Patient encounter procedure Bryan SCOTT MD Work Phone: [employer] [facility] [employer] [place] [facility] DepartmentNew[facility] Start: 06-15-2010 End: 06-15-2010 Patient encounter procedure Bryan SCOTT MD Work Phone: [employer] [facility] [employer] [place] [facility] DepartmentNew[facility] Start: 05-18-2010 End: 05-18-2010 Patient encounter procedure Bryan SCOTT MD Work Phone: L[employer]BBER[employer] [facility] [email or web address] [place] [facility] Start: 11-29-2009 End: 11-29-2009 Historical Summary Bryan SCOTT MD Work Phone: [facility] [employer] [place] [facility] DepartmentM[facility] Arts Procedures Date Procedure Procedure Detail Performing Clinician Start: 03-19-2025 Blood pressure withi n normal parameters - no follow-up required Nivees Prescott MD Work Phone: Start: 03-19-2025 BMI [...] parameters - no follow-up required Stephany Gregory GAME DESIGNER/CREATIVE DIRECTOR-JUKE [employer]OX SERVICER Start: 03-04-2025 BMI outside of zully l parameters - no follow-up plan/reason not given Stephany Gregory APRN-JUKE [employer] SERVICER Start: 03-04-2025 Documentation of cur rent medications Stephany Gregory APRN-BRIANNA Start: 03-04-2025 Pain assessment docu mented as positive - follow-up documented Stephany Gregory APRN-BRIANNA Start: 03-04-2025 Tobacco screening or cessation counseling not performed - unknown reason Stehpany SINHA Start: 02-21-2025 Radiologic exam ches t [...] Activity Detail Author Start: 03-04-2025 End: 03-04-2025 [employer] Work Phone: Start: 03-04-2025 Mri spinal canal lumbar w/o contrast material [employer] Work Phone: Start: 03-04-2025 Radex spine lumbosacral 2/3 views [employer] Work Phone: Start: 03-03-2025 Hemoglobin glycosylated a1c HEMOGLOBIN GLYCLATED (HGB A1C) (86893) Start: 03-Mar-2025 16:47-04:00 [facility].; [facility], [facility]. Start: 03-03-2025 Assay of folic acid serum FOLIC ACID SERUM (69798) Start: 03-Mar-2025 16:47-04:00 Request VIEO.; [employer] [facility] [employer] Start: 03-03-2025 Cyanocobalamin vitamin b-12 VITAMIN B-12 (CYANOCOBALAMIN) (54538) Start: 03-Mar-2025 16:46-04:00 Request VIEO.; [employer] [facility] [employer] Start: 03-03-2025 Follow-up encounter Medical; HOSPITAL ER FOLLOW UP - [facility] 02/21/25 rec req [place] ins. [employer] [facility] [employer], [employer]. Start: 03-Mar-2025 15:45-04:00 MD Bryan SCOTT Appointment Request [facility] [employer]. Start: 03-03-2025 Echo tthrc r-t 2d w/wom-mode compl spec&colr d CARDIAC ECHO WITH DOPPLER (35522) Start: 03-Mar-2025 Intent [employer]IEO.; [employer] Start: 03-03-2025 Mri brain brain stem w/o w/contrast material MRI BRAIN W/O & W CONTRAST (80564) - IV Contrast per Protocol Start: 03-Mar-2025 Intent VIE[employer].; [employer] [facility] [employer] Start: 02-27-2025 [facility] Start: 09-19-2012 Chest x-ray CHEST X-RAY - TWO VIEWS - AP/LL (29034) Start: 19-Sep-2012 Intent [employer]IE[employer].; [employer] Start: 09-19-2012 Complete tthrc echo congenital cardiac anomaly CARDIAC ECHO W/ DOPPLERS (54968) (20324) Start: 19-Sep-2012 Intent VIEO.; [employer] Patient Education [facility] Work Phone: Immunizations Immunization Date Immunization Notes Care Provider Bert quach 08-29-2005 diphtheria, tetanus toxoids and acellular pertussis vaccine Bryan SCOTT MD Work Phone: [facility].; [facility] 08-29-2005 measles, mumps and rubella virus vaccine Bryan SCOTT MD Work Phone: [facility].; [facility] 08-29-2005 poliovirus vaccine, inactivated Bryan SCOTT MD Work Phone: [facility].; [facility] 08-29-2005 varicella virus vaccine Bryan SCOTT MD Work Phone: [facility].; [facility] 07-08-2001 diphtheria, tetanus toxoids and acellular pertussis vaccine Bryan SCOTT MD Work Phone: [facility].; [facility] 07-08-2001 haemophilus influenz ae type b vaccine, HbOC conjugate Bryan SCOTT MD Work Phone: [facility]; [facility] 07-08-2001 hepatitis B vaccine, pediatric or pediatric/adolescent dosage Bryan SCOTT MD Work Phone: [facility]; [facility] 07-08-2001 measles, mumps and rubella virus vaccine Bryan SCOTT MD Work Phone: [facility].; [facility]. 2000 diphtheria, tetanus toxoids and acellular pertussis vaccine Bryan SCOTT MD Work Phone: [facility].; [facility] 2000 haemophilus influenz ae type b vaccine, HbOC conjugate Bryan SCOTT MD Work Phone: [facility].; [facility] 2000 hepatitis B vaccine, pediatric or pediatric/adolescent dosage Bryan SCOTT MD Work Phone: [facility].; [facility] 2000 poliovirus vaccine, inactivated Bryan SCOTT MD Work Phone: [facility].; [facility] [employer] 2000 diphtheria, tetanus toxoids and acellular pertussis vaccine Bryan SCOTT MD Work Phone: [facility].; [facility] 2000 haemophilus influenz ae type b vaccine, HbOC conjugate Bryan SCOTT MD Work Phone: [facility].; [facility] 2000 hepatitis B vaccine, pediatric or pediatric/adolescent dosage Bryan SCOTT MD Work Phone: [facility].; [facility] 2000 poliovirus vaccine, inactivated Bryan SCOTT MD Work Phone: [facility].; [facility] Payers Date Payer Category Payer Self-pay 2025 Unknown [id number] 2000 Unknown [id number] 2.. [id number] 2000 Unknown [id number] 2.. [id number] 2000 Unknown [id number] 2.16. [id number] 2000 Unknown [id number] 2.16. [id number] 2000 Unknown [id number] 2.16. [id number] 2000 Unknown [id number] 2.16. [id number] 2000 Unknown [id number] 2.16. [id number] 2000 Unknown [id number] 2.16. [id number] 2000 Unknown [id number] 2.16. [id number] 2000 Unknown [id number] 2.16. [id number] 2000 Unknown [id number] 2.16. [id number] 2000 Unknown [id number] 2.16. [id number] Unknown [id number] Unknown ANTHEM Unknown [id number] 2.16.8 [id number] Unknown [id number] 2.16.8 [id number] Unknown [id number] 2.16.8 [id number] Social History Date Type Detail Facility Start: 02-21-2025 End: 03-12-2025 Tobacco smoking status INIS Current some day smoker [facility] Start: 03-04-2025 End: 03-12-2025 Sex [facility] Start: 2000 Sex Assigned At Female W [facility] Alcohol Use: Alcohol Use: ; N o Alcohol Use. [facility] [employer] [place] [facility].; [facility] Current school status: Current s chool status: ; Home school. [facility].; [facility] Tobacco use: Tobacco use: ; N ever smoker. [facility].; [facility], [facility] Never smoked tobacco [facility]; [facility] Work Phone: Alcohol Use: Alcohol Use: ; Y es for Alcohol Use. 1 to [address] [facility]; [facility] Tobacco use: Tobacco use: ; F ormer smoker. [facility]; [facility] Ex-smoker [facility]; [facility] Work Phone: Start: 03-04-2025 Tobacco smoking status Smoker (findi ng) [facility] Work Phone: Start: 03-12-2025 smoking/tobacco cessation, patient education and counseling Smoking cessation education (procedure) [facility] Work Phone: Functional Status Date Assessment Result Facility 03-12-2025 Functional Status with [employer]. Work Phone: 03-12-2025 dependent [facility] [employer] Work Phone: Mental Status Date Assessment Result Facility 03-04-2025 Cognitive Function house [employer]. Work Phone: 02-27-2025 Cognitive function Awake [facility] Work Phone: 02-21-2025 Cognitive function Voice/Name [facility] Work Phone: Clinical Notes 02-21-2025 to 03-31-2025 [...] and agree with the resident's interpretation. [facility] [employer] 03-27-2025 Note POST-PROCEDURE NOTE Procedure: Image guided lumbar puncture Pre-operative Diagnosis: Myelopathy, possible myelitis Post-operative Diagnosis: Myelopathy, possible myelitis Attending: Elizabeth Alfred MD Fast Food Worker: Bill Young DO A TIME OUT was [...] procedural details. Bill Young DO Radiology [facility] 03-26-2025 Note Pre-Procedure Note HISTORY: Procedure: Image Guided Lumbar Puncture Indication: Myelopathy, possible myelitis Planned Sedation: No Consent obtained? Yes Advanced Directives (Living will, health care power of decorator lighting fixtures): none Code Status For This Procedure: Full Code Bill Young DO Radiology [facility] 03-19-2025 Note EXAMINATION: XR C-SP INE [...] IMPRESSION: No pathologic motion. MACRO: None [facility] 03-18-2025 Note Neurosurgery Treatme nt Plan [...] concerns. Geri Maloney PA-C Neurosurgery Service Pager: [phone] 03/18/2025 - 6:26 AM [facility] 03-18-2025 Note Neurosurgery Treatme nt Plan Note MRI imaging reviewed, final read pending. Staff to review further in am. Will discuss imaging findings with the patient following completion of all imaging. Will obtain CT c spine Please keep patient NPO Admit NSGY RNF under Dr Michel Please call anytime with questions or concerns. Geri Maloney PA-C Neurosurgery Service Pager: [phone] 03/18/2025 - 1:20 AM [facility] 03-17-2025 Note Neurosurgery Treatme nt Plan Note MRI C spine wo imaging reviewed and discussed with attending, Dr. Michel. Patient requires further imaging to further characterize pathology Recommend obtaining stat MRI brain wwo, MRI C spine w contrast Please call anytime with questions or concerns. Geri Maloney PA-C Neurosurgery Service Pager: [phone] 03/17/2025 - 9:46 PM [facility] 02-27-2025 Discharge summary [facility] 02-27-2025 Discharge summary Note Date/Time February 27, 2025 5:39pm [facility] Medical Records Department [address] [place] [address] Emergency Department Summary 02/27/25 MR#: [id number] Acct: [id number] Name: YULIET DYE PHOEBE Rep #:[id number] : 2000 24 From: Collin Cloud DO [...] past 7 to 10 days. Psychiatric: [facility] Medical History (Updated 02/27/25 @ 16:07 [...] Tommy Mayen MD [Non-Staff -Ordering Privileges, Neurology] Gmoez Irizarry MD [Med Staff - Active Staff, [...] be followed up by orthopedics. Print Language: Cymraes Disposition Disposition: Home, Self Care Discharge Date/Time: 02/27/25 16:18 What to do if you have Problems For any increased pain, shortness of breath, bleeding, nausea or vomiting, chestpain, or any unexpected problems, contact your Primary Care Provider. Call [facility] ([phone]) or report to the closest Emergency Room. Call 911 if necessary. 02/27/25 1739 <Electronically signed by Collin Cloud DO> Cosigner Signature (if applicable): CC: No Primary Care Physician ~ Signed [facility] Work Phone: 1(119) 840-981610-04-2025 Radiology Diagnostic study note [facility] Imaging Services [address] [place] [address] Chest PA and Lateral MR#: [id number] Acct: [id number] Name: YULIET DYE PHOEBE Rep #: [id number] : 2000 F 24 From: Gama Johnston MD PCP: Care Physician,No Primary Status: REG ER Study:Chest PA and Lateral Date of Exam: 02/21/25 Exam# [id number] Ordering Dr: Carlos Manuel Santamaria MD PROCEDURE: [...] No evidence for acute abnormality. Reading [facility] CC: Dr. Matheus Santamaria MD; No Primary Care Physician ~ Phys Assistant: Signed [facility]10-04-2025 Radiology Diagnostic study note [facility] Imaging Services [address] [place], [place] [address] Brain/Head without Contrast MR#: [id number] Acct: [id number] Name: YULIET DYE PHOEBE Rep #: [id number] : 2000 F 24 From: Gama Johnston MD PCP: Care Physician,No Primary Status: REG ER Study:Brain/Head without Contrast Date of Exa m: 02/21/25 Exam# [id number] Ordering Dr: Carlos Manuel Santamaria MD PROCEDURE: [...] Santamaria MD; No Primary Care Physician ~ Phys Assistant: [facility]igned [facility] assessment information available [facility] Work Phone: Hospital Discharge instructionsAdditional Instructions I [...] We had discussed following up with the [place] [facility], they have walk-in clinics as well where he could be followed up by orthopedics.[facility] Work Phone: Reason for referral (narrative)No reason for referral information availableWBellevue Hospital Work Phone: Chief Complaint and Reason for Visit Chief Complaint Admit Date numbness February 21, 2025 3: 48am Chief Complaint Admit Date numbness February 21, 2025 3: 48am N/T February 27, 2025 1 2:55pm Advance Directives No Advanced Directives Records Found Advance Directive Response Recorded Date/ Time Do you have a Healthcare Power of Skin Lifter Bacon? No February 21, 2025 3:53am Advance Directive Response Recorded Date/ Time Do you have a Healthcare Power of Skin Lifter Bacon? No February 21, 2025 3:53am Do you have a Healthcare Power of Skin Lifter Bacon? No February 27, 2025 2:04pm Summary Purpose [...] section and content) DATE CREATED AUTHOR 04/01/2025 [facility] DATE CREATED AUTHOR AUTHOR'S ORGANIZ ATION 04/02/2025 [facility] FOR RECORDS PERTAINING TO PATIENTS WHO [...] BE BASED ON THE PRIMARY CLINICAL RECORDS. [employer] provides no warranty or guarantee of the accuracy or completeness of information in this document.
== END 2025-04-22 05:33 | disposition home or self-care (01) ==
LOC: ED 05:31
PROVIDERS: Emergency Provider Emergency Medicine; PCP Family Medicine; Visit Provider Emergency Medicine
DX: L25.9 Unspecified contact dermatitis, unspecified cause (principal); Z98.1 Arthrodesis status; F17.290 Nicotine dependence, other tobacco product, uncomplicated
CPT/HCPCS: 99283